=== PATIENT | female | born 1985 | race Caucasian/White ===

== ENCOUNTER 2016-11-14 12:00 | Emergency (ER) | payer MEDICAID, OTHER ==
[~2016-11-14] VITALS: Wt 87.0 kg
[2016-11-14] MEDS ORDERED: SOD CHLORIDE 0.9% 1,000 ML IV STA (13:45)
[2016-11-14] MEDS ORDERED: ONDANSETRON 4 MG INJ IV STA (13:45)
[2016-11-14] MEDS ORDERED: morphine 4 MG/ML VIAL IV STA (13:45)
[2016-11-14 14:06] LABS: URINE BLOOD (Dip) POC Trace-intact (NEGATIVE)
[2016-11-14 14:14] LABS: BASOPHILS % 0.3 % (0.0-2.0); EOSINOPHILS # 0.1 10^3/ul (0.0-0.5); EOSINOPHILS % 0.7 % (0.0-7.0); HEMATOCRIT 41.4 % (37.0-47.0); HEMOGLOBIN 13.7 g/dl (12.0-16.0); LYMPHOCYTES % 15.9 % (15.0-51.0); MEAN CORPUSCULAR HEMOGLOBIN 26.2 pg (29.0-33.0); MEAN CORPUSCULAR VOLUME 79.4 fl (82.0-101.0); MEAN PLATELET VOLUME 7.4 fl (7.4-10.4); MONOCYTE # 0.8 10^3/ul (0.3-0.9); MONOCYTES % 6.1 % (0.0-11.0); NEUTROPHIL # 9.8 10^3/ul (1.6-7.5); PLATELET COUNT 438 10^3/UL (140-440); RED BLOOD COUNT 5.22 10^6/ul (4.20-5.40); UNCORRECTED WBC 12.8 10^3/ul (4.8-10.8); WHITE BLOOD COUNT 12.8 10^3/ul (4.8-10.8)
[2016-11-14 14:24] LABS: CONDITION 1; LH ANALYZER COMMENTS 1
[2016-11-14 14:25] LABS: ALBUMIN 4.6 g/dl (3.3-4.9)
[2016-11-14 14:26] LABS: POTASSIUM 4.1 mmol/L (3.5-5.1)
[2016-11-14 14:28] LABS: BILIRUBIN,INDIRECT 0.9 mg/dl (0-1.1); BILIRUBIN,TOTAL 0.9 mg/dl (0.2-1.3); CREATININE 0.49 mg/dl (0.44-1.00)
[2016-11-14 14:29] LABS: ALBUMIN/GLOBULIN RATIO 1.17; CALCIUM 9.5 mg/dl (8.4-10.2); TOTAL PROTEIN 8.5 g/dl (6.1-8.1)
--- NOTE | 2016-11-14 14:47 | RADRPT ---
PROCEDURE: CT Abdomen and Pelvis without contrast. CLINICAL INDICATION: Abdominal pain TECHNIQUE: CT scan of the abdomen and pelvis without contrast was performed on a multidetector hig h-resolution CT scanner. The patient was scanned without intravenous contrast. Coronal and sagittal reformatted images were obtained from the axial source images. Images were reviewed on a high-resol [employer] PACS workstation. The total exam CTDI equals 17.11 mGy and the total exam DLP equals 1038.25 m Gy-cm. One or more of the following dose reduction techniques were used: Automated exposure control. Adjustment of the mA and/or kV according to patient size. Use of iterative reconstruction technique. COMPARISON: CT abdomen and pelvis 09/15/2013 FINDINGS: CT abdomen: The lung bases are remarkable for subsegmental atelectasis. The heart size is normal, without peric ardial thickening or effusion. The liver is normal in size and density without focal mass or intrah epatic biliary dilatation. The spleen is normal in size and homogeneous in density. There are postsurgical changes of gastric bypass surgery. The stomach is partially collapsed, but is grossly unremarkable. The pancreas as visualized is normal. The gallbladder is surgically absent. There is no evidence for biliary dilatation. The adrenal glands are symmetric and normal. The kid neys are symmetrically unremarkable as well. No renal calculus or obstructive uropathy or mass lesi on is seen. The aorta is of normal caliber. There is no retroperitoneal lymphadenopathy. The kristen hepatis agnieskza on is clear. The bowel and mesentery, as visualized, are equally unremarkable. There is diverticulo sis of the descending and sigmoid colon without evidence of acute diverticulitis. CT pelvis: The small bowel loops situated within the pelvis are unremarkable. There is a normal appendix. IUD is in place. There is approximately 3.5 cm hypodensity in the right adnexa and 4 cm hypodensity in the left adnexa. The pelvic sidewalls and inguinal regions are clear. The sigmoid colon and rectu m are remarkable for sigmoid diverticulosis. No mass, lymphadenopathy, or free fluid is seen. No a cute inflammation is seen. There is left pars interarticularis defect without spondylolisthesis. Th e surrounding osseous structures are remarkable for degenerative spondylosis of the spine. No osteo lytic or osteoblastic lesion is detected. IMPRESSION: 1. No mass, lymphadenopathy, or focal acute inflammatory process is identified. 2. Diverticulosis of the left colon without evidence of acute diverticulitis. 3. Normal appendix. 4. Status post gastric bypass surgery and cholecystectomy. No biliary ductal dilatation. 5. Approximately 3.5-4 cm hypodensities in bilateral adnexa likely representing ovarian cysts. Cons ider pelvic ultrasound for further evaluation. 6. IUD is in appropriate position. RPTAT: BB .Js Shepard MD, MD Date Time Electronically viewed and signed by .Js Shepard MD, on 11/14/2016 14:46 .O/
[2016-11-14] MEDS ORDERED: HYDROmorphONE 1 MG/ML SYG IV STA (14:52)
[2016-11-14] MEDS ORDERED: ONDA4TAB14 PO (15:01)
--- NOTE | 2016-11-14 15:09 | ERD ---
ER Documentation Chief Complaint Date/Time DATE: 11/14/16 TIME: 15:02 Chief Complaint pelvic pain for 4 days. no active vomiting. HPI Patient is a 31-year-old female with past medical history of migraines, cholecystectomy, gastric bypass surgery who presents to the emergency department with bilateral pelvic pain 4 days. Patient states that her pain started in the umbilical region and is now primarily located in the bilateral lower quadrants. Patient states that the pain does radiate to her mid back. She states the pain is an 8 out of 10, constant and sharp in nature. Patient states that she started having some nausea and vomiting today. Patient reports 4 episodes of nonbloody nonbilious vomiting. Patient also complaining of difficulty tolerating by mouth fluids and has a decreased appetite. She denies any chest pain, shortness of breath, arm weakness, tingling. Patient also complaining of a headache. Patient states that her headache started 3 days ago. It is primarily in the bilateral frontal regions and radiates to the back of her head. Patient denies sudden onset. She states that her headache has been getting gradually worse. Patient admits to some photophobia but denies any blurry vision. Patient denies any pain with urination, frequency, urgency, vaginal bleeding. Last menstrual period was on 10/30/16. No sick contacts. No recent travel. Of note, patient states that she had the flu approximately 2 weeks ago. Patient states she completed a course of Tamiflu at that time. ROS All systems reviewed and are negative except as per history of present illness. Medications Home Meds Active Scripts Diphenhydramine Hcl* (Diphenhydramine Hcl*) 25 Mg Capsule, 25 MG PO Q6 Y for ITCHING, #20 CAP Prov:KATHERINE GILL PA-C 11/14/16 Ibuprofen* (Motrin*) 600 Mg Tab, 600 MG PO Q6H Y for PAIN AND OR ELEVATED TEMP, #20 TAB Prov:KATHERINE GILL PA-C 11/14/16 Ondansetron (Ondansetron Odt) 4 Mg Tab.rapdis, 4 MG PO Q6H Y for NAUSEA AND/OR VOMITING, #12 TAB Prov:KATHERINE GILL PA-C 11/14/16 Allergies Allergies: Coded Allergies: ibuprofen (Verified Allergy, Unknown, 11/15/16) tramadol (Verified Allergy, Unknown, 11/15/16) PMhx/Soc Medical and Surgical Hx: pt denies Medical Hx, pt denies Surgical Hx History of Surgery: Yes (GASTRIC SURGERY, cholesectomy) Anesthesia Reaction: No Hx Neurological Disorder: No Hx Respiratory Disorders: No Hx Cardiac Disorders: No Hx Psychiatric Problems: Yes (DEPRESSION, ANXIETY) Hx Miscellaneous Medical Probl: No Hx Alcohol Use: Yes (ON OCCATION) Hx Substance Use: No Hx Tobacco Use: No Smoking Status: Never smoker FmHx Family History: No diabetes Physical Exam Vitals Vital Signs Date Time Temp Pulse Resp B/P Pulse Ox O2 Delivery O2 Flow Rate FiO2 11/14/16 16:45 98.1 62 16 136/80 100 Room Air 11/14/16 12:14 98.1 98 20 138/81 97 Physical Exam GENERAL: Well-developed, well-nourished female. Appears in pain. HEAD: Normocephalic, atraumatic. No deformities or ecchymosis. EYE: Pupils equal, round, and reactive to light. EOMs intact. No conjunctival erythema. No scleral icterus. No eye discharge. ENT: External ear without any masses or tenderness. Auditory canals clear bilaterally. TM visualized bilaterally, non-erythematous, non-bulging. Nasal mucosa pink with no discharge. Oropharynx is pink without any tonsillar erythema or exudates. No uvula deviation. No kissing tonsils. NECK: Supple. No lymphadenopathy or thyromegaly. No meningismus. No JVD. No bruits. Trachea midline. LUNGS: Clear to auscultation bilaterally. No rhonchi, wheezing, rales or coarse breath sounds. HEART: Regular rate and rhythm. No murmurs, rubs or gallops. ABDOMEN: Numerous old incisional scars noted. Tender to palpation of the umbilical, bilateral lower quadrants. Positive bowel sounds in all four quadrants. No rebound tenderness, no guarding. (-) McBurney's point tenderness. R-sided CVA tenderness. BACK: No midline tenderness. EXTREMITES: Equal pulses bilaterally. No peripheral clubbing, cyanosis or edema. No unilateral leg swelling. NEUROLOGIC: Alert and oriented to person, place and time. Moving all four extremities. 5/5 strength in all extremities. Normal speech. Steady gait. (-) Brudzinski sign- no flexion of the hips and knees noted with neck flexion. (-) Kernigs sign- patient able to extend knee to 180 degrees with hip flexion, no hamstring stiffness noted. SKIN: Normal color. Warm and dry. No rashes or lesions. Result Diagram: 11/14/16 1405 11/14/16 1405 Results 24 hrs Laboratory Tests Test 11/14/16 14:05 11/14/16 14:06 Alanine Aminotransferase (ALT/SGPT) 30IU/L Albumin 4.6g/dl Albumin/Globulin Ratio 1.17 Alkaline Phosphatase 95IU/L Anion Gap 19 Aspartate Amino Transf (AST/SGOT) 24IU/L Basophils # 0.010^3/ul Basophils % 0.3% Blood Morphology Comment Blood Urea Nitrogen 10mg/dl Calcium Level 9.5mg/dl Carbon Dioxide Level 28mmol/L Chloride Level 101mmol/L Creatinine 0.49mg/dl Direct Bilirubin 0.00mg/dl Eosinophils # 0.110^3/ul Eosinophils % 0.7% Globulin 3.90g/dl Glucose Level 79mg/dl Hematocrit 41.4% Hemoglobin 13.7g/dl Indirect Bilirubin 0.9mg/dl Lipase 107U/L Lymphocytes # 2.010^3/ul Lymphocytes % 15.9% Mean Corpuscular Hemoglobin 26.2pg Mean Corpuscular Hemoglobin Concent 33.0g/dl Mean Corpuscular Volume 79.4fl Mean Platelet Volume 7.4fl Monocytes # 0.810^3/ul Monocytes % 6.1% Neutrophils # 9.810^3/ul Neutrophils % 77.0% Nucleated Red Blood Cells # 0.010^3/ul Nucleated Red Blood Cells % 0.0/100WBC Platelet Count 37075^3/UL Potassium Level 4.1mmol/L Red Blood Count 5.2210^6/ul Red Cell Distribution Width 15.0% Sodium Level 144mmol/L Total Bilirubin 0.9mg/dl Total Protein 8.5g/dl White Blood Count 12.810^3/ul Bedside Urine Blood Trace-intact Bedside Urine Glucose (UA) 0.1% Bedside Urine Ketones (LAB) Negative Bedside Urine Leukocyte Esterase (L Negative Bedside Urine Nitrite (LAB) Negative Bedside Urine Protein (LAB) Negative Bedside Urine pH (LAB) 6.0 Current Medications Medications (Trade) Dose Ordered Sig/Hi Route PRN Reason Start Time Stop Time Status Last Admin Dose Admin Sodium Chloride (NS) 1,000 ml @ 1,000 mls/hr Q1H STAT IV 11/14/16 13:45 11/14/16 14:44 DC 11/14/16 14:08 Morphine Sulfate (morphine) 4 mg ONCE STAT IV 11/14/16 13:45 11/14/16 14:53 DC 11/14/16 14:08 Ondansetron HCl (Zofran Inj) 4 mg ONCE STAT IV 11/14/16 13:45 11/14/16 13:47 DC 11/14/16 14:07 Hydromorphone HCl (Dilaudid) 1 mg ONCE STAT IV 11/14/16 14:52 11/14/16 14:53 DC 11/14/16 15:01 Procedures/MDM ED COURSE: The patient was stable throughout ED course. I kept the patient and/or family informed of laboratory and diagnostic imaging results throughout the ED course. DIAGNOSTIC IMAGING: Read by radiologist. DIAGNOSTIC IMAGING REPORT Patient: KENA ZELAYA : 1985 Age: 31 Sex: F MR #: [id number] DOS: 11/14/16 1345 Ordering MD: KATHERINE GILL PA-C Location: [facility] Room/Bed: PROCEDURE: CT Abdomen and Pelvis without contrast. CLINICAL INDICATION: Abdominal pain TECHNIQUE: CT scan of the abdomen and pelvis without contrast was performed on a multidetector high-resolution CT scanner. The patient was scanned without intravenous contrast. Coronal and sagittal reformatted images were obtained from the axial source images. Images were reviewed on a high-resolution PACS workstation. The total exam CTDI equals 17.11 mGy and the total exam DLP equals 1038.25 mGy-cm. One or more of the following dose reduction techniques were used: Automated exposure control. Adjustment of the mA and/or kV according to patient size. Use of iterative reconstruction technique. COMPARISON: CT abdomen and pelvis 09/15/2013 FINDINGS: CT abdomen: The lung bases are remarkable for subsegmental atelectasis. The heart size is normal, without pericardial thickening or effusion. The liver is normal in size and density without focal mass or intrahepatic biliary dilatation. The spleen is normal in size and homogeneous in density. There are postsurgical changes of gastric bypass surgery. The stomach is partially collapsed, but is grossly unremarkable. The pancreas as visualized is normal. The gallbladder is surgically absent. There is no evidence for biliary dilatation. The adrenal glands are symmetric and normal. The kidneys are symmetrically unremarkable as well. No renal calculus or obstructive uropathy or mass lesion is seen. The aorta is of normal caliber. There is no retroperitoneal lymphadenopathy. The kristen hepatis region is clear. The bowel and mesentery, as visualized, are equally unremarkable. There is diverticulosis of the descending and sigmoid colon without evidence of acute diverticulitis. CT pelvis: The small bowel loops situated within the pelvis are unremarkable. There is a normal appendix. IUD is in place. There is approximately 3.5 cm hypodensity in the right adnexa and 4 cm hypodensity in the left adnexa. The pelvic sidewalls and inguinal regions are clear. The sigmoid colon and rectum are remarkable for sigmoid diverticulosis. No mass, lymphadenopathy, or free fluid is seen. No acute inflammation is seen. There is left pars interarticularis defect without spondylolisthesis. The surrounding osseous structures are remarkable for degenerative spondylosis of the spine. No osteolytic or osteoblastic lesion is detected. IMPRESSION: 1. No mass, lymphadenopathy, or focal acute inflammatory process is identified. 2. Diverticulosis of the left colon without evidence of acute diverticulitis. 3. Normal appendix. 4. Status post gastric bypass surgery and cholecystectomy. No biliary ductal dilatation. 5. Approximately 3.5-4 cm hypodensities in bilateral adnexa likely representing ovarian cysts. Consider pelvic ultrasound for further evaluation. 6. IUD is in appropriate position. RPTAT: BB .Js Shepard MD, Date Time Electronically viewed and signed by .Js Shepard MD, on 11/14/2016 14:46 .O/ CC: KATHERINE GILL PA-C DIAGNOSTIC IMAGING REPORT Patient: KENA ZELAYA : 1985 Age: 31 Sex: F MR #: [id number] DOS: 11/14/16 0000 Ordering MD: KATHERINE GILL PA-C Location: [facility] Room/Bed: PROCEDURE: US Pelvis. CLINICAL INDICATION: Pelvic pain TECHNIQUE: Multiple sonographic images of the pelvis were obtained utilizing a transabdominal and endovaginal technique. The images were reviewed on a PACS workstation. COMPARISON: CT November 14, 2016 FINDINGS: The uterus is visualized and measures 10.2 x 3.8 x 4.6 cm. The endometrial echo complex is not well visualized. Echogenic IUD is identified in the endometrial canal. Small amount of free fluid is identified in the cervical canal. No uterine masses are identified. The right ovary measures 4.1 x 3.2 x 2.8 cm . The left ovary measures 4.7 x 3.4 x 3.6 cm. 3.1 cm simple cyst is identified on the left ovary. 2.9 cm simple cyst is seen on the right ovary. The ovaries demonstrate normal vascularity. No adnexal masses or pelvic free fluid are noted. IMPRESSION: Echogenic IUD in the endometrial canal. Endometrial echo complex not well visualized. If characterization of this structure is needed repeat exam or MRI is recommended. Trace free fluid in the cervical canal. This may be related to menses. 3.1 cm simple cyst on the left ovary and 2.9 cm simple cyst on the right ovary. These likely reflect physiologic cysts are prominent follicles. If further characterization of the organs of the pelvis is needed MRI should be considered. RPTAT: AA .Eusebio Khoury MD, MD Date Time Electronically viewed and signed by .Eusebio Khoury MD, MD on 11/14/2016 15:55 .P/ CC: KATHERINE GILL PA-C MEDICATIONS GIVEN: Dilaudid, Zofran, IV fluids Patient tolerated medication well with no adverse reactions. Patient reported improvement in pain and nausea/vomiting. Additional episodes of vomiting were noted throughout ED course. MEDICAL DECISION MAKING: This is a 31-year-old female who presents with bilateral pelvic pain and a headache. Vital signs were reviewed. Patient is afebrile. Patient was not hypoxic. Abdominal exam revealed tenderness to palpation in the umbilical and bilateral lower quadrants. CBC showed no evidence of severe anemia. Slight white count of 12.8 was noted. CMP showed no evidence of electrolyte abnormalities, severe acidosis, alkalosis, renal failure, or liver disease. Lipase showed no evidence of acute pancreatitis. UA showed no evidence of acute infection or hematuria. Low suspicion for UTI, pyelonephritis or nephrolithiasis. Urine test was negative. CT abdomen and pelvis showed No mass, lymphadenopathy, or focal acute inflammatory process is identified. Diverticulosis of the left colon without evidence of acute diverticulitis. Normal appendix. Status post gastric bypass surgery and cholecystectomy. No biliary ductal dilatation. Approximately 3.5-4 cm hypodensities in bilateral adnexa likely representing ovarian cysts. Consider pelvic ultrasound for further evaluation. Given that the patient continued to report lower pelvic pain bilaterally, a pelvic ultrasound was obtained. Pelvic ultrasound showed 3.1 cm simple cyst on the left ovary and 2.9 cm simple cyst on the right ovary. These likely reflect physiologic cysts are prominent follicles. The ovaries demonstrate normal vascularity. At this time, patient's presentation is most consistent with diverticulosis and ovarian cysts. I have a much lower clinical concern for acute coronary syndrome, small bowel obstruction, DKA, bowel perforation, cholecystitis, choledocholithiasis, ascending cholangitis, pancreatitis, gastritis, GERD, diverticulitis, UTI, pyelonephritis, appendicitis, constipation , , ectopic , PID, ovarian torsion or tubo-ovarian abscess. Patient's headache is most likely due to migraines. Low suspicion for intracranial hemorrhage given that patient denied sudden onset or worst headache of life. Low suspicion for intracranial mass, CO poisoning, intracranial hypertension. PRESCRIPTIONS: Ibuprofen, Zofran, Benadryl. Patient requested Benadryl for her headaches. DISCHARGE: At this time, patient is stable for discharge and outpatient management. I have instructed the patient to follow-up with his/her primary care physician in 1-2 days. She was advised that she may be to follow-up with the GI specialist for further workup of her abdominal pain if symptoms do not improve including colonoscopy. I have instructed the patient to promptly return to the ER at any time for any new or worsening symptoms including increased pain, nausea, vomiting, diarrhea, fever, weakness or LOC. The patient and/or family expressed understanding of and agreement with this plan. All questions were answered. Home care instructions were provided. Departure Diagnosis: Primary Impression: Diverticulosis Diverticulosis site: unspecified location Diverticulosis bleeding: diverticulosis without bleeding Qualified Code: K57.90 - Diverticulosis of intestine without bleeding, unspecified intestinal tract location Additional Impressions: Ovarian cyst Laterality: bilateral Qualified Code: N83.201 - Cysts of both ovaries Migraine Migraine type: unspecified Status migrainosus presence: without status migrainosus Intractability: not intractable Qualified Code: G43.909 - Migraine without status migrainosus, not intractable, unspecified migraine type Condition: Stable Patient Instructions: Understanding Diverticulosis and Diverticulitis Additional Instructions: Call your primary care doctor TOMORROW for an appointment during the next 1-2 days.See the doctor sooner or return here if your condition worsens before your appointment time. Patient may need to follow up with GI specialist if pain does not improve for further workup including possible colonoscopy. KATHERINE GILL PA-C Nov 14, 2016 15:09
--- NOTE | 2016-11-14 15:55 | RADRPT ---
PROCEDURE: US Pelvis. CLINICAL INDICATION: Pelvic pain TECHNIQUE: Multiple sonographic images of the pelvis were obtained utilizing a transabdominal and endovaginal technique. The images were reviewed on a PACS workstation. COMPARISON: CT November 14, 2016 FINDINGS: The uterus is visualized and measures 10.2 x 3.8 x 4.6 cm. The endometrial echo complex is not well visualized. Echogenic IUD is identified in the endometrial canal. Small amount of free fluid is id entified in the cervical canal. No uterine masses are identified. The right ovary measures 4.1 x 3.2 x 2.8 cm . The left ovary measures 4.7 x 3.4 x 3.6 cm. 3.1 cm s imple cyst is identified on the left ovary. 2.9 cm simple cyst is seen on the right ovary. The ova sohail demonstrate normal vascularity. No adnexal masses or pelvic free fluid are noted. IMPRESSION: Echogenic IUD in the endometrial canal. Endometrial echo complex not well visualized. If characterization of this structure is needed repeat exam or MRI is recommended. Trace free fluid in the cervical canal. This may be related to menses. 3.1 cm simple cyst on the left ovary and 2.9 cm simple cyst on the right ovary. These likely reflec t physiologic cysts are prominent follicles. If further characterization of the organs of the pelvis is needed MRI should be considered. RPTAT: AA .Eusebio Khoury MD, MD Date Time Electronically viewed and signed by .Eusebio Khoury MD, MD on 11/14/2016 15:55 .P/
[2016-11-14] MEDS ORDERED: IBUP-1542 PO (16:16)
[2016-11-14] MEDS ORDERED: DIPH25CA6 PO (16:17)
[2016-11-14 16:45] VITALS: BP 136/80; PULSE 62; RESP 16; TEMP 98.1
== END 2016-11-14 16:45 | disposition home or self-care (01) ==
LOC: FTE 12:00
DX: K57.90 Diverticulosis of intestine, part unspecified, without perforation or abscess without bleeding (principal); N83.201 Unspecified ovarian cyst, right side; N83.202 Unspecified ovarian cyst, left side; G43.909 Migraine, unspecified, not intractable, without status migrainosus; R11.2 Nausea with vomiting, unspecified
CPT/HCPCS: 36415; 74176; 76830; 76856; 80053; 81003; 83690; 85025; 96374; 96375; J1170; J2270; J2405; J7030; Z7502

== ENCOUNTER 2016-11-14 22:24 | Emergency (ER) | payer MEDICAID, OTHER ==
[~2016-11-14] VITALS: Ht 160 cm; Wt 89.5 kg
[~2016-11-14 22:24] MED LIST: DIPH25CA6 PO; IBUP-1542 PO; ONDA4TAB14 PO
[2016-11-14 22:28] VITALS: Ht 160 cm; Wt 89.5 kg
[2016-11-15] MEDS ORDERED: ONDANSETRON (ODT) 4 MG TAB ODT STA (00:48)
[2016-11-15] MEDS ORDERED: traMADol 50 MG TAB PO ONE (01:00)
[2016-11-15] MEDS ORDERED: DIPHENHYDRAMINE 2.5 MG/ML 5ML CUP PO ONE (01:30)
--- NOTE | 2016-11-15 02:55 | ERD ---
ER Documentation Chief Complaint Date/Time DATE: 11/15/16 TIME: 02:49 Chief Complaint vomiting, was seen this morning same c/o was not given by pharmacy zofran HPI The patient is a 31-year-old female who comes to the emergency department for nausea and vomiting since this morning. She was seen here and evaluated this morning, and was discharged home with prescription for Zofran. She states that she was unable to get her prescription filled, and her nausea and vomiting returned. She is here requesting medication for nausea and vomiting. She denies any new symptoms, worsening symptoms, or concerns. She continues to report some bilateral lower abdominal pain, which is somewhat better than it was this morning. She has a history of gastric bypass surgery and cholecystectomy. ROS All systems reviewed and are negative except as per history of present illness. Medications Home Meds Active Scripts Diphenhydramine Hcl* (Diphenhydramine Hcl*) 25 Mg Capsule, 25 MG PO Q6 Y for ITCHING, #20 CAP Prov:KATHERINE GILL PA-C 11/14/16 Ibuprofen* (Motrin*) 600 Mg Tab, 600 MG PO Q6H Y for PAIN AND OR ELEVATED TEMP, #20 TAB Prov:KATHERINE GILL PA-C 11/14/16 Ondansetron (Ondansetron Odt) 4 Mg Tab.rapdis, 4 MG PO Q6H Y for NAUSEA AND/OR VOMITING, #12 TAB Prov:KATHERINE GILL PA-C 11/14/16 Allergies Allergies: Coded Allergies: ibuprofen (Verified Allergy, Unknown, 11/15/16) tramadol (Verified Allergy, Unknown, 11/15/16) PMhx/Soc History of Surgery: Yes (GASTRIC SURGERY, cholecystectomy) Anesthesia Reaction: No Hx Neurological Disorder: No Hx Respiratory Disorders: No Hx Cardiac Disorders: No Hx Psychiatric Problems: Yes (DEPRESSION, ANXIETY) Hx Miscellaneous Medical Probl: No (ovarian cyst & diverticulosis- both diagnosed 11/14/16) Hx Alcohol Use: No Hx Substance Use: No Hx Tobacco Use: No Smoking Status: Never smoker Physical Exam Vitals Vital Signs Date Time Temp Pulse Resp B/P Pulse Ox O2 Delivery O2 Flow Rate FiO2 11/14/16 22:28 98.3 94 20 126/69 98 Physical Exam INITIAL VITAL SIGNS: Reviewed by me GENERAL: Alert. Well developed and well nourished. No acute distress. HEAD: Head is normocephalic. Atraumatic. EYES: EOMI. No scleral icterus. No conjunctival injection. ENT: External ears, nose, and mouth normal. Nasal passages patent. Moist mucous membranes. NECK: Supple. Full range of motion. Trachea midline. RESPIRATORY: No tachypnea. Clear to auscultation bilaterally. No wheezing, rales , or rhonchi. CV: Regular rate and rhythm. No murmurs, rubs, or gallops ABDOMEN: Soft, non-distended, non-tender. No guarding. No rebound. No masses. Bowel sounds normal in all quadrants. BACK: No CVA tenderness. Full ROM. EXTREMITIES: No obvious deformity. No clubbing or cyanosis. No edema. SKIN: Warm and dry. No diaphoresis. No obvious rashes or lesions. NEUROLOGIC: Alert and oriented x 3. Appropriate. Face is symmetric. Speech is normal. Moves all extremities equally. Results 24 hrs Current Medications Medications (Trade) Dose Ordered Sig/Hi Route PRN Reason Start Time Stop Time Status Last Admin Dose Admin Ondansetron HCl (Zofran Odt) 4 mg ONCE STAT ODT 11/15/16 00:48 11/15/16 00:50 DC 11/15/16 01:00 Tramadol HCl (Ultram) 50 mg ONCE ONCE PO 11/15/16 01:00 11/15/16 01:01 DC Diphenhydramine HCl (Benadryl Liquid Cup) 25 mg ONCE ONCE PO 11/15/16 01:30 11/15/16 01:31 DC 11/15/16 01:40 Procedures/MDM Nursing Notes Reviewed Previous Medical Records requested via [facility]. EMERGENCY DEPARTMENT COURSE / MEDICAL DECISION MAKING: The patient comes to the ED secondary to nausea and vomiting since this morning. Differential diagnosis upon initial evaluation includes but is not limited to: Viral illness, appendicitis, diverticulitis, sepsis, and others. The patient was treated with Zofran 4 mg p.o. the patient requested Benadryl in order to help her sleep. She stated that she would not be driving home. Benadryl 25 mg p.o. was given. The patient's workup from earlier today was negative as below: Pelvic ultrasound as per radiology report: IMPRESSION: Echogenic IUD in the endometrial canal. Endometrial echo complex not well visualized. If characterization of this structure is needed repeat exam or MRI is recommended. Trace free fluid in the cervical canal. This may be related to menses. 3.1 cm simple cyst on the left ovary and 2.9 cm simple cyst on the right ovary. These likely reflect physiologic cysts are prominent follicles. CT scan per radiology report: IMPRESSION: 1. No mass, lymphadenopathy, or focal acute inflammatory process is identified. 2. Diverticulosis of the left colon without evidence of acute diverticulitis. 3. Normal appendix. 4. Status post gastric bypass surgery and cholecystectomy. No biliary ductal dilatation. 5. Approximately 3.5-4 cm hypodensities in bilateral adnexa likely representing ovarian cysts. Consider pelvic ultrasound for further evaluation. 6. IUD is in appropriate position. Labs: CBC: no e/o of systemic infection or severe anemia CMP: no e/o severe acidosis, alkalosis, renal failure, diabetic ketoacidosis, liver disease Urine: no e/o acute infection or hematuria Otherwise within normal limits, unremarkable, or as documented above. Final impression: Nausea and vomiting Based on patient's history of present illness and physical examination the decision was made to discharge. The patient was re-evaluated after ED treatment and stabilizing measures, and symptoms have improved. There is no evidence of life threatening injuries or illnesses at this time. I have low suspicion at this time for acute surgical abdomen, given her negative workup earlier today. The patient requested to be discharged so that she could go home and rest that she was feeling much better. On re-examination, patient resting in no distress, stable vital signs, reports feeling better and safe for discharge with outpatient follow up with PMD in 1-2 days. Patient given return precautions. She verbalized understanding and agreed to return precautions. It was reported to me by the registered nurse that the patient eloped prior to receiving her discharge instructions because "her ride was here ". Departure Diagnosis: Primary Impression: Nausea and vomiting Vomiting type: unspecified Vomiting Intractability: non-intractable Qualified Code: R11.2 - Non-intractable vomiting with nausea, unspecified vomiting type Condition: Stable Patient Instructions: Nausea and Vomiting-Adult Referrals: your doctor Additional Instructions: Call your primary care doctor TOMORROW for an appointment during the next 1-2 days.See the doctor sooner or return here if your condition worsens before your appointment time. AVERY LIN, DRUM HANDLER Nov 15, 2016 02:55
== END 2016-11-15 07:04 | disposition home or self-care (01) ==
LOC: FTE 22:24 → E/R 11-15 07:04
DX: R11.2 Nausea with vomiting, unspecified (principal)
CPT/HCPCS: Z7502; Z7610; 99283

== ENCOUNTER 2016-11-16 12:48 | Inpatient (IN) | payer OTHER ==
[~2016-11-16] VITALS: Ht 134.6 cm; Wt 84.9 kg
[2016-11-16] MEDS ORDERED: SOD CHLORIDE 0.9% 1,000 ML IV STA (12:55)
[2016-11-16] MEDS ORDERED: HYDROmorphONE 1 MG/ML SYG IV STA (12:55)
[2016-11-16] MEDS ORDERED: ONDANSETRON 4 MG INJ IV STA ×2 (12:55→15:40)
[2016-11-16] MEDS ORDERED: LORAZEPAM 2 MG INJ IV ONE (13:00)
--- NOTE | 2016-11-16 13:00 | ERD ---
ER Documentation Chief Complaint Date/Time DATE: 11/16/16 TIME: 12:56 Chief Complaint ABD PAIN X 5 DAYS HPI 31-year-old female history of gastric bypass who presents emergency room for diffuse abdominal pain. The patient is tearful with dry heaving and anxiety upon arrival. The patient has 3 visits the last 2 days here in the emergency room for similar symptoms. Her last CAT scan was on the sixth that showed diverticulosis but no evidence of bowel obstruction. The patient describes "many years "of this abdominal pain that is mostly unchanged. She is asking for pain medication. She states that she has not seen a GI doctor. She denies any hematemesis or melena, no diarrhea. ROS All systems reviewed and are negative except as per history of present illness. Medications Home Meds Active Scripts Diphenhydramine Hcl* (Diphenhydramine Hcl*) 25 Mg Capsule, 25 MG PO Q6 Y for ITCHING, #20 CAP Prov:KATHERINE GILL PA-C 11/14/16 Ibuprofen* (Motrin*) 600 Mg Tab, 600 MG PO Q6H Y for PAIN AND OR ELEVATED TEMP, #20 TAB Prov:KATHERINE GILL PA-C 11/14/16 Ondansetron (Ondansetron Odt) 4 Mg Tab.rapdis, 4 MG PO Q6H Y for NAUSEA AND/OR VOMITING, #12 TAB Prov:KTAHERINE GILL PA-C 11/14/16 Allergies Allergies: Coded Allergies: ibuprofen (Verified Allergy, Unknown, 11/16/16) tramadol (Verified Allergy, Unknown, 11/16/16) PMhx/Soc History of Surgery: Yes (GASTRIC SURGERY, cholecystectomy) Anesthesia Reaction: No Hx Neurological Disorder: No Hx Respiratory Disorders: No Hx Cardiac Disorders: No Hx Psychiatric Problems: Yes (DEPRESSION, ANXIETY) Hx Miscellaneous Medical Probl: No (ovarian cyst & diverticulosis- both diagnosed 11/14/16) Hx Alcohol Use: No Hx Substance Use: No Hx Tobacco Use: No Smoking Status: Never smoker FmHx Family History: No diabetes Physical Exam Vitals Vital Signs Date Time Temp Pulse Resp B/P Pulse Ox O2 Delivery O2 Flow Rate FiO2 11/16/16 12:50 97.7 78 20 140/90 100 Physical Exam General: Disheveled, older than stated age, dry heaving Head: Normocephalic, atraumatic. Eyes: Pupils equally reactive, EOM intact ENT: Moist mucous membranes Neck: Supple, no lymphadenopathy Respiratory: Lungs clear bilaterally, no distress Cardiovascular: RRR, no murmurs, rubs, or gallops Abdominal: Soft, mild diffuse tenderness without rebound or guarding, no peritonitis : Deferred MSK: No edema, no unilateral swelling, 5/5 strength Neurologic: Alert and oriented, moving all extremities, normal speech, no focal weakness, no cerebellar signs Skin: No rash Psych: Normal mood Result Diagram: 11/16/16 1315 11/16/16 1315 Results 24 hrs Laboratory Tests Test 11/16/16 13:15 Alanine Aminotransferase (ALT/SGPT) 25IU/L Albumin 4.5g/dl Albumin/Globulin Ratio 1.25 Alkaline Phosphatase 106IU/L Anion Gap 22 Aspartate Amino Transf (AST/SGOT) 25IU/L Basophils # 0.010^3/ul Basophils % 0.0% Blood Morphology Comment Blood Urea Nitrogen 11mg/dl Calcium Level 9.3mg/dl Carbon Dioxide Level 25mmol/L Chloride Level 100mmol/L Creatinine 0.53mg/dl Direct Bilirubin 0.00mg/dl Eosinophils # 0.010^3/ul Eosinophils % 0.0% Globulin 3.60g/dl Glucose Level 129mg/dl Hematocrit 41.6% Hemoglobin 13.6g/dl Indirect Bilirubin 0.7mg/dl Lipase 89U/L Lymphocytes # 0.910^3/ul Lymphocytes % 6.0% Mean Corpuscular Hemoglobin 26.2pg Mean Corpuscular Hemoglobin Concent 32.8g/dl Mean Corpuscular Volume 79.7fl Mean Platelet Volume 7.8fl Monocytes # 0.110^3/ul Monocytes % 0.4% Neutrophils # 14.510^3/ul Neutrophils % 93.6% Nucleated Red Blood Cells # 0.010^3/ul Nucleated Red Blood Cells % 0.0/100WBC Platelet Count 02465^3/UL Potassium Level 4.1mmol/L Red Blood Count 5.2210^6/ul Red Cell Distribution Width 15.4% Sodium Level 143mmol/L Total Bilirubin 0.7mg/dl Total Protein 8.1g/dl White Blood Count 15.510^3/ul Current Medications Medications (Trade) Dose Ordered Sig/Hi Route PRN Reason Start Time Stop Time Status Last Admin Dose Admin Sodium Chloride (NS) 1,000 ml @ 1,000 mls/hr Q1H STAT IV 11/16/16 12:55 11/16/16 13:54 DC 11/16/16 13:07 Hydromorphone HCl (Dilaudid) 1 mg ONCE STAT IV 11/16/16 12:55 11/16/16 12:56 DC 11/16/16 13:07 Ondansetron HCl (Zofran Inj) 4 mg ONCE STAT IV 11/16/16 12:55 11/16/16 12:56 DC 11/16/16 13:07 Lorazepam (Ativan) 1 mg ONCE ONCE IV 11/16/16 13:00 11/16/16 13:01 DC 11/16/16 13:07 Procedures/MDM EKG, MONITORS, & DIAGNOSTIC IMAGING: X-ray acute abdominal series: IMPRESSION: 1. No evidence of obstruction or free air. 2. Prior surgery. 3. IUD. 4. Scoliosis. RPTAT: QQ LAB INTERPRETATION: Leukocytosis secondary to stress response. MEDICAL DECISION MAKING: This is the patient's third visit for abdominal pain the last 2 days. The patient has chronic abdominal pain that I believe is unchanged. However her frequency of visits is somewhat concerning. The patient also has a highly concerning [facility] database report showing multiple prescriptions from multiple different providers over the last several months. Most recently in October the patient has filled 6 different prescriptions for [place] ranging anywhere from 4-40 tablets. A combination of electronic medical record review, [facility] database review and patient behavior in the emergency room are concerning for drug-seeking and/or narcotic dependence behavior. In my opinion further use of IV or IM narcotics in this patient is not warranted unless clinical scenario changes. In addition , we should use caution prescribing chronic narcotic and/or benzodiazepine medications from the emergency room. A single provider should be dispensing this type of medication. The patient was informed. The patient is at risk for bowel obstruction given her history of gastric bypass however the patient had a recent CT. I would like to avoid unnecessary CT imaging and is otherwise healthy 31-year-old female. Anxiety medication would certainly be indicated. If the patient has persistence of symptoms given her frequency of visits the ER inpatient hospitalization may be reasonable. ER COURSE: The patient has persistent pain. Leukocytosis secondary to stress response. No indication for CT imaging. The patient will benefit from inpatient hospitalization and serial exams. I kept the patient and/or family informed of laboratory and diagnostic imaging results throughout the emergency room course. DISPOSITION PLAN: Medical surgical bed CONSULTATION: Accepting care team and consultations: I discussed the current laboratory data, diagnostic imaging and emergency care provided. Admitting team: Dr. Gerber Admitting team indication: Insurance directed Departure Diagnosis: Primary Impression: Abdominal pain Abdominal location: generalized Qualified Code: R10.84 - Generalized abdominal pain Additional Impressions: Anxiety reaction Narcotic dependence Condition: Stable LUCILA CORDOBA MD Nov 16, 2016 13:00
[2016-11-16 13:38] LABS: HEMATOCRIT 41.6 % (37.0-47.0); HEMOGLOBIN 13.6 g/dl (12.0-16.0); LYMPHOCYTES # 0.9 10^3/ul (0.8-2.9); MEAN CORPUSCULAR HEMOGLOBIN 26.2 pg (29.0-33.0); MEAN CORPUSCULAR HGB CONC 32.8 g/dl (32.0-37.0); MEAN CORPUSCULAR VOLUME 79.7 fl (82.0-101.0); MEAN PLATELET VOLUME 7.8 fl (7.4-10.4); MONOCYTE # 0.1 10^3/ul (0.3-0.9); MONOCYTES % 0.4 % (0.0-11.0); NEUTROPHIL # 14.5 10^3/ul (1.6-7.5); NEUTROPHILS % 93.6 % (39.0-77.0); PLATELET COUNT 428 10^3/UL (140-440); RED BLOOD COUNT 5.22 10^6/ul (4.20-5.40); RED CELL DISTRIBUTION WIDTH 15.4 % (11.5-14.5); UNCORRECTED WBC 15.5 10^3/ul (4.8-10.8); WHITE BLOOD COUNT 15.5 10^3/ul (4.8-10.8)
[2016-11-16 13:56] LABS: CONDITION 1; LH ANALYZER COMMENTS 1
--- NOTE | 2016-11-16 13:57 | RADRPT ---
PROCEDURE: XR Abdomen. CLINICAL INDICATION: Abdomen pain. TECHNIQUE: Two views. AP supine and AP erect. COMPARISON: None. FINDINGS: There is no free air. The bowel gas pattern is normal with no evidence of obstruction. Multiple surgical clips are present in the upper abdomen. There is a Mirena IUD in the pelvis. There are no abnormal calcifications overlying the urinary tracts. There is thoracic scoliosis convex right and lumbar scoliosis convex left. IMPRESSION: 1. No evidence of obstruction or free air. 2. Prior surgery. 3. IUD. 4. Scoliosis. RPTAT: QQ .Anant Cruz MD, MD Date Time Electronically viewed and signed by .Anant Cruz MD, on 11/16/2016 13:57 .R/
[2016-11-16 14:07] LABS: ALBUMIN 4.5 g/dl (3.3-4.9)
[2016-11-16 14:08] LABS: POTASSIUM 4.1 mmol/L (3.5-5.1)
[2016-11-16 14:10] LABS: ALBUMIN/GLOBULIN RATIO 1.25; BILIRUBIN,INDIRECT 0.7 mg/dl (0-1.1); BILIRUBIN,TOTAL 0.7 mg/dl (0.2-1.3); CALCIUM 9.3 mg/dl (8.4-10.2); CREATININE 0.53 mg/dl (0.44-1.00); TOTAL PROTEIN 8.1 g/dl (6.1-8.1)
[2016-11-16] MEDS ORDERED: ONDANSETRON 4 MG INJ IV PRN ×3 (15:30→23:00)
[2016-11-16] MEDS ORDERED: ACETAMINOPHEN 325 MG TAB PO PRN (15:30)
[2016-11-16 15:45] VITALS: TEMP 98.4
[2016-11-16] MEDS ORDERED: BISACODYL (EC) 5 MG TAB PO PRN (16:00)
[2016-11-16] MEDS ORDERED: NACL 0.9% 3 ML SYG IV SCH (16:00)
[2016-11-16] MEDS ORDERED: ACETAMINOPHEN 650 MG SUPP PR PRN (16:00)
[2016-11-16 16:15] VITALS: BP 149/96; PULSE 54; RESP 20
[2016-11-16] MEDS ORDERED: morphine 10 MG INJ IM ONE (16:30)
--- NOTE | 2016-11-16 16:47 | HP ---
Date/Time of Note Date/Time of Note DATE: 11/16/16 TIME: 16:41 Assessment/Plan VTE Prophylaxis VTE Prophylaxis Intervention: SCD's Assessment/Plan Chief Complaint/Hosp Course Impression and plan 1. Diffuse abdominal pain. Patient does report that her abdominal pain did start in her ability area and spread up to her upper abdomen 10 out of 10. She does report that the pain is intermittent. She has never seen a production control scheduler. We will get one to follow her. We'll start on PPI medication provide with analgesics as needed. We'll get bumper and painter. 2. Suspect opioid abuse. We'll get pain management physician to follow. Of note this history was obtained from the patient's who did report that the patient did have somewhat of an opiate tolerance after her gastric bypass surgery. We'll follow up on home medications 3. History of major depression. We'll continue patient's antidepressants. No reports of suicidal ideation at this time. 4. Leukocytosis. Patient remains afebrile. Etiology unknown. We'll follow up on garcia cultures. 5. Diverticulosis without evidence of diverticulitis per CT scan of the abdomen on 11/14/2016. Patient was impaired be started on Cipro and Flagyl. We'll continue for now. We'll follow-up on garcia cultures. 6. Anxiety. We'll provide with anxiolytics as needed. Admission process time is 40 minutes Discussed plan of care with Dr. Purcell Problems: HPI/IGLESIA Admit Date/Time Admit Date/Time Nov 16, 2016 at 15:11 Hx of Present Illness This is a 31-year-old female with past medical history of gastric bypass and cholecystectomy as well as anxiety and major depression, with also reports of chronic abdominal pain who came to [facility] after reports of having abdominal pain for several days. She did report that the pain initially started in her lower abdominal area and then started to radiate up to her upper abdomen. She did report having some nausea and vomiting associated with this issue not bloody by greenish in appearance. Patient was initially had [facility] on 11/14/2016 for this issue for which she did have CT scan of the abdomen that did show diverticulosis but no evidence of diverticulitis. She also did have pelvic ultrasound done that did show echogenic IUD in the endometrial canal. It also did show trace free fluid in the cervical canal but likely related to menses. Is also showed a 3.17 m simple cyst on left ovary and 2.9 cm simple cyst on the right ovary. Patient was also seen with a white count of 15.5 but remained afebrile. She did report having subjective chills while she was at home. Her most recent abdominal x-ray done on 11/16/2016 did show no evidence of obstruction or free air. Patient denies ever having had colonoscopy or EGD. She has not seen a production control scheduler. Of note, we also did discuss with the patient's who did report that sometime ago after patient's gastric bypass procedure she did developed somewhat of an opiate tolerance. Patient was seen in the bed shaking her hands in the air requesting for Dilaudid pain medication. We will monitor for the aforementioned issues ROS 12 point review of systems obtained and entirely negative except that mentioned in the history of present illness PMH/Family/Social Past Medical History This is a 31-year-old female with past medical history of gastric bypass and cholecystectomy as well as anxiety and major depression Past Surgical History 1. Cholecystectomy 2. Gastric bypass Family History Significant Family History: no pertinent family hx Social History Alcohol Use: none Smoking Status: Unknown if ever smoked Drug Use: none Exam/Review of Systems Vital Signs Vitals Vital Signs Date Time Temp Pulse Resp B/P Pulse Ox O2 Delivery O2 Flow Rate FiO2 11/16/16 15:45 98.4 70 20 131/84 97 Room Air Exam Exam General: Noted in distress. Reports having abdominal pain Eyes: pupils equal round, Anicteric sclera Neck: Supple nontender, no JVD Cardiac: S1, S2 auscultated, regular rhythm and rate Pulmonary: No coarse rhonchi or breathing auscultated GI: Tender upon palpation Extremities: No edema bilateral lower extremities Skin: Clean dry and intact Neurologic: [Alert and oriented 3, anxious Labs Result Diagram: 11/16/16 1315 11/16/16 1315 Medications Medications Current Medications Sodium Chloride (NS) 1,000 ml @ 75 mls/hr [id number] IV ; Start 11/16/16 at 15:39 Ondansetron HCl (Zofran Inj) 4 mg Q6H PRN IV NAUSEA AND/OR VOMITING; Start 11/16 at 16:00 Acetaminophen (Tylenol Supp) 650 mg Q6H PRN TN PAIN LEVEL 1-3 OR FEVER; Start 11/16/16 at 16:00 Morphine Sulfate (morphine) 2 mg Q4H PRN IV SEVERE PAIN LEVEL 7-10; Start at 16:00 Bisacodyl (Dulcolax) 5 mg DAILY PRN PO CONSTIPATION; Start 11/16/16 at 16:00 Famotidine 20 mg 20 mg Q12 IV ; Start 11/16/16 at 21:00 Ciprofloxacin/ Dextrose 200 ml @ 200 mls/hr Q12 IVPB ; Start 11/16/16 at 21:00 Metronidazole (Flagyl 500 Mg (Pmx)) 100 ml @ 100 mls/hr Q8 IVPB ; Start at 22:00 Morphine Sulfate (morphine) 0.5 mg ONCE ONCE IV ; Start 11/16/16 at 17:00; Stop 11/16/16 at 17:01; Status MULUGETA KUHN Nov 16, 2016 16:46
[2016-11-16 16:56] VITALS: Ht 134.6 cm; Wt 84.9 kg
[2016-11-16] MEDS ORDERED: morphine 2 MG INJ IV ONE (17:00)
[2016-11-16 17:26] LABS: MAGNESIUM 1.7 mg/dl (1.7-2.5)
[2016-11-16 17:27] LABS: CHOL/HDL RATIO 2.8 RATIO
[2016-11-16] MEDS: SOD CHLORIDE 0.9% 1,000 ML IV SCH (17:29)
[2016-11-16] MEDS ORDERED: IOHEXOL 300MG/ML 150 ML BTL ONE (18:08)
[2016-11-16] MEDS ORDERED: SOD CHLORIDE 0.9% 100 ML ONE (18:08)
[2016-11-16] MEDS: ONDANSETRON 4 MG INJ IV PRN (18:17)
[2016-11-16 18:22] LABS: THYROID STIMULATING HORMONE 0.148 MIU/L (0.465-4.680)
--- NOTE | 2016-11-16 19:37 | RADRPT ---
PROCEDURE: CT Abdomen and Pelvis with contrast. CLINICAL INDICATION: Abdominal pain TECHNIQUE: CT scan of the abdomen and pelvis with contrast was performed on a multidetector high-res olution CT scanner. The patient was scanned after the uneventful administration of 100 cc of Omnipaq [id number]. Coronal and sagittal reformatted images were obtained from the axial source images. Images were reviewed on a high-resolution PACS workstation. The total exam CTDI equals 17.68 mGy and the t otal exam DLP equals 1058.4 mGy-cm. COMPARISON: CT abdomen and pelvis 11/14/2016 FINDINGS: CT abdomen: The lung bases are remarkable for subsegmental atelectasis. The heart size is normal, without perica rdial thickening or effusion. The liver is normal in size and density without focal mass or intrahep atic biliary dilatation. The spleen is normal in size and homogeneous in density. There are postsurgical changes of gastric bypass surgery. The stomach is partially collapsed, but is grossly unremarkable. The pancreas as visualized is normal. The gallbladder is surgically absent. T here is no evidence for biliary dilatation. The adrenal glands are symmetric and normal. The kidneys are symmetrically unremarkable as well. No renal calculus or obstructive uropathy or mass lesion is seen. The aorta is of normal caliber. There is no retroperitoneal lymphadenopathy. The kristen hepatis regio n is clear. The bowel and mesentery, as visualized, are equally unremarkable. There is diverticulosi s of the descending and sigmoid colon without evidence of acute diverticulitis. CT pelvis: The small bowel loops situated within the pelvis are unremarkable. There is a normal appendix. IUD i s in place. There is approximately 3.5 cm hypodensity in the right adnexa and 4 cm hypodensity in th e left adnexa. The pelvic sidewalls and inguinal regions are clear. The sigmoid colon and rectum are remarkable for sigmoid diverticulosis. No mass, lymphadenopathy, or free fluid is seen. No acute in flammation is seen. There is left pars interarticularis defect without spondylolisthesis. The surrou nding osseous structures are remarkable for degenerative spondylosis of the spine. Posterior disk os teophyte complex at L2-L3 result in mild canal narrowing. No osteolytic or osteoblastic lesion is d etected. IMPRESSION: 1. No mass, lymphadenopathy, or focal acute inflammatory process is identified. 2. Diverticulosis without evidence of acute diverticulitis. 3. Status post gastric bypass surgery and cholecystectomy. No biliary ductal dilatation. 4. Stable appearance of 3.5-4 cm hypodensities in bilateral adnexa likely representing ovarian cyst s. Consider pelvic ultrasound for further evaluation. 5. IUD is in appropriate position. RPTAT: QQ .Nick Knight MD, MD Date Time Electronically viewed and signed by .Nick Knight MD, on 11/16/2016 19:37 .A/
[2016-11-16 20:28] VITALS: BP 134/87; RESP 18
[2016-11-16] MEDS: FAMOTIDINE 20 MG INJ IV SCH (20:50)
[2016-11-16] MEDS: CIPROFLOXACIN 400MG/D5W 200 ML IVPB SCH (20:51)
[2016-11-16] MEDS: morphine 2 MG INJ IV PRN (20:51)
[2016-11-16] MEDS: metroNIDAZOLE 500 MG/NS (PMX) 100 ML IVPB SCH (22:29)
[2016-11-17] VITALS (19 sets, daily range): BP systolic 130–155; BP diastolic 76–99; PULSE 48–77; RESP 15–20
[2016-11-17] MEDS: morphine 2 MG INJ IV PRN ×6 (00:40→17:14)
[2016-11-17] MEDS: ONDANSETRON 4 MG INJ IV PRN ×2 (03:46→11:22)
[2016-11-17] MEDS: SOD CHLORIDE 0.9% 1,000 ML IV SCH ×2 (04:59→18:19)
[2016-11-17] MEDS: metroNIDAZOLE 500 MG/NS (PMX) 100 ML IVPB SCH ×3 (05:57→22:42)
[2016-11-17 06:11] LABS: BASOPHIL # 0.1 10^3/ul (0.0-0.1); BASOPHILS % 0.5 % (0.0-2.0); EOSINOPHILS # 0.1 10^3/ul (0.0-0.5); EOSINOPHILS % 0.5 % (0.0-7.0); HEMOGLOBIN 11.9 g/dl (12.0-16.0); LYMPHOCYTES % 13.5 % (15.0-51.0); MEAN CORPUSCULAR HEMOGLOBIN 26.4 pg (29.0-33.0); MEAN CORPUSCULAR VOLUME 80.1 fl (82.0-101.0); MEAN PLATELET VOLUME 7.9 fl (7.4-10.4); MONOCYTE # 1.1 10^3/ul (0.3-0.9); MONOCYTES % 7.1 % (0.0-11.0); NEUTROPHIL # 11.8 10^3/ul (1.6-7.5); NEUTROPHILS % 78.4 % (39.0-77.0); PLATELET COUNT 439 10^3/UL (140-440); RED CELL DISTRIBUTION WIDTH 15.3 % (11.5-14.5)
[2016-11-17 06:17] LABS: CONDITION 1; LH ANALYZER COMMENTS 1; POTASSIUM 3.9 mmol/L (3.5-5.1)
[2016-11-17 06:20] LABS: CREATININE 0.54 mg/dl (0.44-1.00)
[2016-11-17] MEDS: CIPROFLOXACIN 400MG/D5W 200 ML IVPB SCH ×2 (08:05→20:57)
[2016-11-17] MEDS: METOCLOPRAMIDE 10 MG INJ IV PRN ×2 (08:05→17:14)
[2016-11-17] MEDS: FAMOTIDINE 20 MG INJ IV SCH (08:05)
[2016-11-17] MEDS ORDERED: INFLUENZA VIRUS VACCINE 0.5 ML SYG IM* ONE (09:00)
--- NOTE | 2016-11-17 11:42 | CONS ---
Date/Time of Note Date/Time of Note DATE: 11/17/16 TIME: 11:36 Assessment/Plan Assessment/Plan Additional Assessment/Plan Abdominal pain/nausea/vomiting * EGD today. Advised patient of R/B/A of procedure and is agreeable to proceed * Monitor H&H every 6, transfuse 2 units for hemoglobin less than 7.5 * PPI therapy * N.p.o. Further recommendations depend on clinical course Consultation Date/Type/Reason Admit Date/Time Nov 16, 2016 at 15:11 Type of Consultation: Gastroenterology Reason for Consultation Abdominal pain Hx of Present Illness 31-year-old female with reports of intense abdominal pain, nausea, nonbloody bilious vomiting for the last 5 days. Patient reports abrupt onset. Denies diarrhea, hematochezia, fever, chills, travel outside the [place], previous episode, and history of GERD. Patient has history of cholecystectomy and gastric bypass in 2012 with 113 pound weight loss. At bedside patient is writhing in pain and unable to provide complete history due to complaints of intense abdominal pain. Patient states pain is diffuse and very tender to touch. Patient consents to EGD. Lipase is within normal limits and CT abdomen notes 1. No mass, lymphadenopathy, or focal acute inflammatory process is identified. 2. Diverticulosis without evidence of acute diverticulitis. 3. Status post gastric bypass surgery and cholecystectomy. No biliary ductal dilatation. Advised her of risks/benefits/alternatives to procedure and she is agreeable to proceed. Per HPI Past Surgical History Past Surgical Hx: cholecystectomy, other (Gastric bypass) Social History Alcohol Use: none Smoking Status: Never smoker Drug Use: none Exam/Review of Systems Vital Signs Vitals Vital Signs Date Time Temp Pulse Resp B/P Pulse Ox O2 Delivery O2 Flow Rate FiO2 11/17/16 08:17 98.4 53 17 134/99 96 11/16/16 16:15 Room Air Intake and Output 11/16/16 11/16/16 11/17/16 15:00 23:00 07:00 Intake Total 1150 ml Output Total 0 ml Balance 1150 ml Exam Constitutional: alert, distress, oriented, well developed Psych: other (Very anxious) Eyes: EOMI ENMT: mucosa pink and moist, nl external ears & nose, nl lips & teeth, nl nasal mucosa & septum Respiratory: normal air movement Cardiovascular: regular rate and rhythm Gastrointestinal: soft, tender (Diffuse tenderness) Neurological: SERVICER TRAVEL TRAILERS II-XII intact Results Result Diagram: 11/17/16 0503 11/17/16 0503 Results 24 hrs Laboratory Tests Test 11/16/16 13:15 11/16/16 17:02 11/17/16 05:03 Alanine Aminotransferase (ALT/SGPT) 25 Albumin 4.5 Albumin/Globulin Ratio 1.25 Alkaline Phosphatase 106 Anion Gap 22 H 17 H Aspartate Amino Transf (AST/SGOT) 25 Basophils # 0.0 0.1 Basophils % 0.0 0.5 Blood Morphology Comment Blood Urea Nitrogen 11 9 Calcium Level 9.3 9.0 Carbon Dioxide Level 25 26 Chloride Level 100 101 Creatinine 0.53 0.54 Direct Bilirubin 0.00 Eosinophils # 0.0 0.1 Eosinophils % 0.0 0.5 Globulin 3.60 H Glucose Level 129 # 97 Hematocrit 41.6 36.0 L Hemoglobin 13.6 11.9 L Indirect Bilirubin 0.7 Lipase 89 Lymphocytes # 0.9 2.0 Lymphocytes % 6.0 L 13.5 L Mean Corpuscular Hemoglobin 26.2 L 26.4 L Mean Corpuscular Hemoglobin Concent 32.8 33.0 Mean Corpuscular Volume 79.7 L 80.1 L Mean Platelet Volume 7.8 7.9 Monocytes # 0.1 L 1.1 H Monocytes % 0.4 7.1 Neutrophils # 14.5 H 11.8 H Neutrophils % 93.6 H 78.4 H Nucleated Red Blood Cells # 0.0 0.0 Nucleated Red Blood Cells % 0.0 0.0 Platelet Count 428 439 Potassium Level 4.1 3.9 Red Blood Count 5.22 4.50 Red Cell Distribution Width 15.4 H 15.3 H Sodium Level 143 140 Total Bilirubin 0.7 Total Protein 8.1 White Blood Count 15.5 #H 15.0 H Beta HCG, Quantitative < 2.4 Cholesterol Level 124 Cholesterol/HDL Ratio 2.8 HDL Cholesterol 44 LDL Cholesterol, Calculated 64 Lactic Acid Level 2.2 Magnesium Level 1.7 Thyroid Stimulating Hormone (TSH) 0.148 L Triglycerides Level 82 Medications Medications Current Medications Sodium Chloride (NS) 1,000 ml @ 75 mls/hr [id number] IV Last administered on t 17:29; Admin Dose 75 MLS/HR; Start 11/16/16 at 15:39 Ondansetron HCl (Zofran Inj) 4 mg Q6H PRN IV NAUSEA AND/OR VOMITING Last administered on 11/17/16 11:22; Admin Dose 4 MG; Start 11/16/16 at 16:00 Acetaminophen (Tylenol Supp) 650 mg Q6H PRN [place] PAIN LEVEL 1-3 OR FEVER; Start 11/16/16 at 16:00 Morphine Sulfate (morphine) 2 mg Q4H PRN IV SEVERE PAIN LEVEL 7-10 Last administered on 11/17/16 08:10; Admin Dose 2 MG; Start 11/16/16 at 16:00 Bisacodyl (Dulcolax) 5 mg DAILY PRN PO CONSTIPATION; Start 11/16/16 at 16:00 Famotidine 20 mg 20 mg Q12 IV Last administered on 11/17/16 08:05; Admin Dose 20 MG; Start 11/16/16 at 21:00 Ciprofloxacin/ Dextrose 200 ml @ 200 mls/hr Q12 IVPB Last administered on 08:05; Admin Dose 200 MLS/HR; Start 11/16/16 at 21:00 Metronidazole (Flagyl 500 Mg (Pmx)) 100 ml @ 100 mls/hr Q8 IVPB Last administered on 11/17/16 05:57; Admin Dose 100 MLS/HR; Start 11/16/16 at 22:00 Ondansetron HCl (Zofran Inj) 4 mg ONCE PRN IV NAUSEA AND/OR VOMITING Last administered on 11/17/16 00:35; Admin Dose 4 MG; Start 11/16/16 at 23:00; Stop at 22:59 Metoclopramide HCl (Reglan) 5 mg Q6H PRN IV NAUSEA Last administered on 08:05; Admin Dose 5 MG; Start 11/17/16 at 07:30 NATALIIA HARDING MD Nov 17, 2016 11:42
--- NOTE | 2016-11-17 15:22 | CONS ---
Date/Time of Note Date/Time of Note DATE: 11/17/16 TIME: 15:19 Consult Date/Type/Reason Admit Date/Time Nov 16, 2016 at 15:11 Initial Consult Date Type of Consultation: internal medicine Subjective Patient still continues to have significant abdominal pain She is tearful and in distress Mild nausea but no vomiting Objective Vital Signs Date Time Temp Pulse Resp B/P Pulse Ox O2 Delivery O2 Flow Rate FiO2 11/17/16 08:17 98.4 53 17 134/99 96 11/16/16 16:15 Room Air Intake and Output 11/16/16 11/16/16 11/17/16 15:00 23:00 07:00 Intake Total 1150 ml Output Total 0 ml Balance 1150 ml GENERAL: Well-nourished well-developed lady VITAL SIGNS: per chart NECK: Supple. No JVD or lymphadenopathy. CARDIAC EXAM: S1, S2. No added sounds or murmurs. CHEST: clear bilaterally, No added sounds, rales or wheezes ABDOMEN: Soft, nontender. No guarding or rebound. Decreased bowel sounds EXTREMITIES: No cyanosis, clubbing or edema. NEUROLOGIC: Generalized weakness. No focal deficits. Results/Medications Result Diagram: 11/17/16 0503 11/17/16 0503 Results 24 hrs Laboratory Tests Test 11/16/16 17:02 11/17/16 05:03 Beta HCG, Quantitative < 2.4 Cholesterol Level 124 Cholesterol/HDL Ratio 2.8 HDL Cholesterol 44 LDL Cholesterol, Calculated 64 Lactic Acid Level 2.2 Magnesium Level 1.7 Thyroid Stimulating Hormone (TSH) 0.148 L Triglycerides Level 82 Anion Gap 17 H Basophils # 0.1 Basophils % 0.5 Blood Morphology Comment Blood Urea Nitrogen 9 Calcium Level 9.0 Carbon Dioxide Level 26 Chloride Level 101 Creatinine 0.54 Eosinophils # 0.1 Eosinophils % 0.5 Glucose Level 97 Hematocrit 36.0 L Hemoglobin 11.9 L Lymphocytes # 2.0 Lymphocytes % 13.5 L Mean Corpuscular Hemoglobin 26.4 L Mean Corpuscular Hemoglobin Concent 33.0 Mean Corpuscular Volume 80.1 L Mean Platelet Volume 7.9 Monocytes # 1.1 H Monocytes % 7.1 Neutrophils # 11.8 H Neutrophils % 78.4 H Nucleated Red Blood Cells # 0.0 Nucleated Red Blood Cells % 0.0 Platelet Count 439 Potassium Level 3.9 Red Blood Count 4.50 Red Cell Distribution Width 15.3 H Sodium Level 140 White Blood Count 15.0 H Medications Current Medications Sodium Chloride (NS) 1,000 ml @ 75 mls/hr [id number] IV Last administered on 17:29; Admin Dose 75 MLS/HR; Start 11/16/16 at 15:39 Ondansetron HCl (Zofran Inj) 4 mg Q6H PRN IV NAUSEA AND/OR VOMITING Last administered on 11/17/16 11:22; Admin Dose 4 MG; Start 11/16/16 at 16:00 Acetaminophen (Tylenol Supp) 650 mg Q6H PRN [place] PAIN LEVEL 1-3 OR FEVER; Start 11/16/16 at 16:00 Bisacodyl (Dulcolax) 5 mg DAILY PRN PO CONSTIPATION; Start 11/16/16 at 16:00 Famotidine 20 mg 20 mg Q12 IV Last administered on 11/17/16 08:05; Admin Dose 20 MG; Start 11/16/16 at 21:00 Ciprofloxacin/ Dextrose 200 ml @ 200 mls/hr Q12 IVPB Last administered on 08:05; Admin Dose 200 MLS/HR; Start 11/16/16 at 21:00 Metronidazole (Flagyl 500 Mg (Pmx)) 100 ml @ 100 mls/hr Q8 IVPB Last administered on 11/17/16 14:25; Admin Dose 100 MLS/HR; Start 11/16/16 at 22:00 Ondansetron HCl (Zofran Inj) 4 mg ONCE PRN IV NAUSEA AND/OR VOMITING Last administered on 11/17/16 00:35; Admin Dose 4 MG; Start 11/16/16 at 23:00; Stop at 22:59 Metoclopramide HCl (Reglan) 5 mg Q6H PRN IV NAUSEA Last administered on 08:05; Admin Dose 5 MG; Start 11/17/16 at 07:30 Morphine Sulfate (morphine) 2 mg Q2H PRN IV pain Last administered on 11/17/16 14:53; Admin Dose 2 MG; Start 11/17/16 at 15:00 Assessment/Plan Chief Complaint/Hosp Course Assessment and plan 1. Diffuse abdominal pain. Etiology is unclear. Patient has had extensive abdominal problems following gastric bypass surgery in 2013 including a year of inpatient care requiring TPN and G-tube in the past. GI evaluation is appreciated pending endoscopy and possible colonoscopy. Continue empiric antibiotics of Flagyl and Cipro for now. 2. Possible opioid dependence we'll monitor closely. 3. History of major depression. We'll continue patient's antidepressants. No reports of suicidal ideation at this time. 4. Leukocytosis. Patient remains afebrile. Etiology unknown. Continue current antibiotics pending cultures 5. Diverticulosis without evidence of diverticulitis per CT scan of the abdomen on 11/14/2016. Patient was impaired be started on Cipro and Flagyl. We'll continue for now. We'll follow-up on garcia cultures. Problems: WAQAS BURKETT MD, [facility] Nov 17, 2016 15:22
[2016-11-17] MEDS ORDERED: PROPOFOL 20 ML ONE (19:28)
[2016-11-17] MEDS ORDERED: MIDAZOLAM 1 MG/ML 2 ML INJ IV PRN (20:00)
[2016-11-17] MEDS ORDERED: ONDANSETRON 4 MG INJ IV PRN (20:00)
[2016-11-17] MEDS ORDERED: METOCLOPRAMIDE 10 MG INJ IV PRN (20:00)
[2016-11-17] MEDS ORDERED: FENTAnyl 50 MCG/ML VIAL IV PRN ×2 (20:00)
[2016-11-17] MEDS ORDERED: MEPERIDINE 25 MG INJ IV PRN (20:00)
[2016-11-17] MEDS ORDERED: DIPHENHYDRAMINE 50 MG INJ IV PRN (20:00)
[2016-11-17] MEDS ORDERED: FENTAnyl 50 MCG/ML VIAL ONE (20:03)
[2016-11-17] MEDS: SUCRALFATE (100 MG/ML) 10ML CUP PO SCH (21:00)
[2016-11-17] MEDS: HEPARIN 5,000 UNIT/0.5 ML SYG SC SCH (21:03)
[2016-11-17] MEDS: HYDROmorphONE 1 MG/ML SYG IV PRN (21:04)
[2016-11-18] MEDS: METOCLOPRAMIDE 10 MG INJ IV PRN ×2 (01:03→14:19)
[2016-11-18] MEDS: HYDROmorphONE 1 MG/ML SYG IV PRN ×2 (01:04→05:20)
[2016-11-18 01:08] VITALS: BP 154/90; PULSE 65; RESP 19
[2016-11-18] MEDS: ONDANSETRON 4 MG INJ IV PRN ×3 (04:01→20:02)
[2016-11-18] MEDS: metroNIDAZOLE 500 MG/NS (PMX) 100 ML IVPB SCH ×3 (05:19→21:53)
[2016-11-18] MEDS: PANTOPRAZOLE (EC) 40 MG TAB PO SCH (05:20)
[2016-11-18 05:50] LABS: BASOPHIL # 0.1 10^3/ul (0.0-0.1); BASOPHILS % 0.6 % (0.0-2.0); EOSINOPHILS # 0.2 10^3/ul (0.0-0.5); EOSINOPHILS % 1.9 % (0.0-7.0); HEMATOCRIT 37.8 % (37.0-47.0); HEMOGLOBIN 12.4 g/dl (12.0-16.0); LYMPHOCYTES # 2.3 10^3/ul (0.8-2.9); LYMPHOCYTES % 26.5 % (15.0-51.0); MEAN CORPUSCULAR HEMOGLOBIN 26.5 pg (29.0-33.0); MEAN CORPUSCULAR HGB CONC 32.9 g/dl (32.0-37.0); MEAN CORPUSCULAR VOLUME 80.5 fl (82.0-101.0); MEAN PLATELET VOLUME 7.6 fl (7.4-10.4); MONOCYTE # 0.8 10^3/ul (0.3-0.9); MONOCYTES % 9.4 % (0.0-11.0); NEUTROPHIL # 5.4 10^3/ul (1.6-7.5); NEUTROPHILS % 61.6 % (39.0-77.0); PLATELET COUNT 378 10^3/UL (140-440); RED CELL DISTRIBUTION WIDTH 15.2 % (11.5-14.5); UNCORRECTED WBC 8.7 10^3/ul (4.8-10.8); WHITE BLOOD COUNT 8.7 10^3/ul (4.8-10.8)
[2016-11-18 05:55] LABS: POTASSIUM 3.6 mmol/L (3.5-5.1)
[2016-11-18 05:57] LABS: CREATININE 0.59 mg/dl (0.44-1.00)
[2016-11-18 05:58] LABS: CALCIUM 8.7 mg/dl (8.4-10.2); PHOSPHORUS 3.6 mg/dl (2.5-4.9)
[2016-11-18 05:59] LABS: MAGNESIUM 1.7 mg/dl (1.7-2.5)
[2016-11-18 06:10] LABS: CONDITION 1; LH ANALYZER COMMENTS 1
[2016-11-18 07:29] VITALS: BP 135/91; RESP 18
[2016-11-18 07:52] LABS: ALBUMIN 3.9 g/dl (3.3-4.9)
[2016-11-18 07:55] LABS: BILIRUBIN,INDIRECT 0.6 mg/dl (0-1.1); BILIRUBIN,TOTAL 0.6 mg/dl (0.2-1.3); TOTAL PROTEIN 7.2 g/dl (6.1-8.1)
[2016-11-18] MEDS: SUCRALFATE (100 MG/ML) 10ML CUP PO SCH ×4 (09:49→20:02)
[2016-11-18] MEDS: CIPROFLOXACIN 400MG/D5W 200 ML IVPB SCH ×2 (09:49→21:53)
[2016-11-18] MEDS ORDERED: traMADol 50 MG TAB PO PRN (10:00)
[2016-11-18] MEDS: HEPARIN 5,000 UNIT/0.5 ML SYG SC SCH ×2 (10:50→22:00)
--- NOTE | 2016-11-18 11:34 | CONS ---
DATE OF ADMISSION: 11/16/2016 DATE OF CONSULTATION: 11/18/2016 HISTORY OF PRESENT ILLNESS: This is a 31-year-old female who presented to [facility] with diffuse abdominal discomfort. She describes it as a periumbilical pain without radiations into her bilateral upper quadrants or her back. She states this is continual pain without peaks and troughs associated with it. She scales this as 10/10. There is no nausea, vomiting, fevers, or ch ills associated with it. No urinary tract symptoms associated with. Denies frequency, dysuria or di arrhea. There is no past medical history that she admits to of opioids or substance abuse. Patient states she only takes Tylenol or Motrin at home for abdominal discomfort. She states she has had t his pain since 2012 after she had gastric bypass surgery, but has been told by the [facility] physician she can no longer go there to see them since her insurance has changed. She delivered her baby appr oximately 6 months ago. She told her consumer loan specialist at that time she was having abdominal discomfort. She had a CT scan done in the emergency room at [facility] on admission which sh owed evidence of diverticulosis without diverticulitis. A pelvic ultrasound was done that showed ec hogenic ICD in the endometrial canal. Additionally, on a CT scan of the abdomen no masses, lymphade nopathy or focal acute inflammatory process was identified, status post gastric bypass surgery and c holecystectomy, no biliary duct dilation. Stable appearance of 3.5 to 4 cm hypodensities in bilater al adnexa, likely representing ovarian cysts. Consider pelvic ultrasound which has been completed, and IUD in appropriate position. Additionally, laboratory tests showed no leukocytosis. She has n o metabolic abnormalities. Liver functions tests are normal. She has had an extensive workup thus far. she has been seen by GI but results of the EGD are not available in patient's medical records a t this time - pending. MEDICATIONS: Please refer to reconciliation sheets. ALLERGIES: TRAMADOL, IBUPROFEN. MAJOR MEDICAL PROBLEMS IN THE PAST: Entirely per history of present illness. SOCIAL HISTORY: Lives with . No history of smoking or drinking or substance abuse. FAMILY HISTORY: Noncontributory. REVIEW OF SYSTEMS: A 12-point review of systems is unremarkable except as per history of present il lness. PHYSICAL EXAMINATION: GENERAL: An obese female who is in no major acute distress. She is not moaning, groaning on examin ation. She appears to be somewhat somnolent. VITAL SIGNS: Blood pressure 135/91, pulse 54 and regular, respirations of 18, temperature of 97.9 d egrees, 95% saturations on room. HEENT: She is normocephalic and atraumatic, anicteric, acyanotic on examination. LUNGS: Shows clear breath sounds throughout both lung murphy. COR: Regular rate and rhythm. ABDOMEN: Soft, benign. Normoactive bowel sounds throughout all 4 quadrants. No gross rebound ash toneal signs or organomegaly can be appreciated. ASSESSMENT AND PLAN: The patient is being worked up by GI at this time pending results of EGD. I had explained to her that the use of opioids is contraindicated without a diagnosis and that I will take her off of those at this time. She states she is ALLERGIC TO IBUPROFEN, but she has been it sarita ing at home and that she is ALLERGIC TO TRAMADOL. Given that I will only treat her with low dose of alternative at this time. Adjuvant pain control medications to be determined, but definitely will withhold the use of opioids. Dictated By: DESEAN RIDDLE MD, LP/XANDER Conf#: [id number] DID#: [id number]
--- NOTE | 2016-11-18 12:33 | PN ---
Date/Time of Note Date/Time of Note DATE: 11/18/16 TIME: 12:22 Assessment/Plan VTE Prophylaxis VTE Prophylaxis Intervention: heparin Lines/Catheters IV Catheter Type (from Nrsg): Peripheral IV Assessment/Plan Assessment/Plan 1. Diffuse abdominal pain. s/p EGD 11/17/[address] Jaime. 2. Suspect opioid abuse. We'll get pain management physician to follow. Of note this history was obtained from the patient's who did report that the patient did have somewhat of an opiate tolerance after her gastric bypass surgery. We'll follow up on home medications 3. History of major depression. We'll continue patient's antidepressants. No reports of suicidal ideation at this time. 4. Leukocytosis. Patient remains afebrile. Etiology unknown. We'll follow up on garcia cultures. 5. Diverticulosis without evidence of diverticulitis per CT scan of the abdomen on 11/14/2016. Patient was impaired be started on Cipro and Flagyl. We'll continue for now. We'll follow-up on garcia cultures. 6. Anxiety. We'll provide with anxiolytics as needed. Subjective 24 Hr Interval Summary Free Text/Dictation This is a 31-year-old female with past medical history of gastric bypass and cholecystectomy as well as anxiety and major depression, with also reports of chronic abdominal pain who came to [facility] after reports of having abdominal pain for several days. She did report that the pain initially started in her lower abdominal area and then started to radiate up to her upper abdomen. She did report having some nausea and vomiting associated with this issue not bloody by greenish in appearance. Patient was initially had [facility] on 11/14/2016 for this issue for which she did have CT scan of the abdomen that did show diverticulosis but no evidence of diverticulitis. She also did have pelvic ultrasound done that did show echogenic IUD in the endometrial canal. It also did show trace free fluid in the cervical canal but likely related to menses. Is also showed a 3.17 m simple cyst on left ovary and 2.9 cm simple cyst on the right ovary. Patient was also seen with a white count of 15.5 but remained afebrile. She did report having subjective chills while she was at home. Her most recent abdominal x-ray done on 11/16/2016 did show no evidence of obstruction or free air. Patient denies ever having had colonoscopy or EGD. She has not seen a decorating instructor. Of note, we also did discuss with the patient's who did report that sometime ago after patient's gastric bypass procedure she did developed somewhat of an opiate tolerance. Patient was seen in the bed shaking her hands in the air requesting for Dilaudid pain medication. We will monitor for the aforementioned issues Patient complains of pain all over the abdomen with nausea and vomiting today. Constitutional: no complaints Eyes: no complaints ENT: no complaints Respiratory: no complaints Cardiovascular: no complaints Genitourinary: no complaints Musculoskeletal: no complaints Skin: no complaints Neurologic: no complaints Endocrine: no complaints Lymphatic: no complaints Exam/Review of Systems Vital Signs Vitals Vital Signs Date Time Temp Pulse Resp B/P Pulse Ox O2 Delivery O2 Flow Rate FiO2 11/18/16 07:29 97.9 54 18 135/91 95 11/17/16 22:45 Room Air 11/17/16 19:57 2.0 Intake and Output 11/17/16 11/17/16 11/18/16 15:00 23:00 07:00 Intake Total 200 ml 850 ml 300 ml Output Total 150 ml 400 ml 1600 ml Balance 50 ml 450 ml -1300 ml Exam Constitutional: alert, oriented, well developed Psych: anxiety Head: atraumatic, normocephalic Eyes: EOMI, nl conjunctiva, nl lids ENMT: nl external ears & nose, nl lips & teeth, nl nasal mucosa & septum Neck: non-tender, supple Respiratory: clear to auscultation, normal air movement Cardiovascular: nl pulses, regular rate and rhythm Gastrointestinal: nl liver, spleen, soft, tender (diffusely) Genitourinary - Female: nl adnexae Musculoskeletal: nl extremities to inspection, nl gait and stance Neurological: FIELD ORGANIZER II-XII intact, nl mental status, nl speech Skin: nl turgor, rash or lesions Lymph: nl lymph nodes Results Result Diagram: 11/18/1617 11/18/1617 Results 24 hrs Laboratory Tests Test 11/18/16 05:17 Alanine Aminotransferase (ALT/SGPT) 29 Albumin 3.9 Alkaline Phosphatase 79 Anion Gap 16 Aspartate Amino Transf (AST/SGOT) 25 Basophils # 0.1 Basophils % 0.6 Blood Morphology Comment Blood Urea Nitrogen 7 Calcium Level 8.7 Carbon Dioxide Level 29 Chloride Level 99 Creatinine 0.59 Direct Bilirubin 0.00 Eosinophils # 0.2 Eosinophils % 1.9 Glucose Level 89 Hematocrit 37.8 Hemoglobin 12.4 Indirect Bilirubin 0.6 Lymphocytes # 2.3 Lymphocytes % 26.5 Magnesium Level 1.7 Mean Corpuscular Hemoglobin 26.5 L Mean Corpuscular Hemoglobin Concent 32.9 Mean Corpuscular Volume 80.5 L Mean Platelet Volume 7.6 Monocytes # 0.8 Monocytes % 9.4 Neutrophils # 5.4 Neutrophils % 61.6 Nucleated Red Blood Cells # 0.0 Nucleated Red Blood Cells % 0.0 Phosphorus Level 3.6 Platelet Count 378 Potassium Level 3.6 Red Blood Count 4.70 Red Cell Distribution Width 15.2 H Sodium Level 140 Total Bilirubin 0.6 Total Protein 7.2 White Blood Count 8.7 # Medications Medications Current Medications Sodium Chloride (NS) 1,000 ml @ 75 mls/hr [id number] IV Last administered on 17:29; Admin Dose 75 MLS/HR; Start 11/16/16 at 15:39 Ondansetron HCl (Zofran Inj) 4 mg Q6H PRN IV NAUSEA AND/OR VOMITING Last administered on 11/18/16 09:52; Admin Dose 4 MG; Start 11/16/16 at 16:00 Acetaminophen (Tylenol Supp) 650 mg Q6H PRN [place] PAIN LEVEL 1-3 OR FEVER; Start 11/16/16 at 16:00 Bisacodyl 5 mg 5 mg DAILY PRN PO CONSTIPATION; Start 11/16/16 at 16:00 Ciprofloxacin/ Dextrose 200 ml @ 200 mls/hr Q12 IVPB Last administered on 11/18 09:49; Admin Dose 200 MLS/HR; Start 11/16/16 at 21:00 Metronidazole (Flagyl 500 Mg (Pmx)) 100 ml @ 100 mls/hr Q8 IVPB Last administered on 11/18/16 05:19; Admin Dose 100 MLS/HR; Start 11/16/16 at 22:00 Metoclopramide HCl (Reglan) 5 mg Q6H PRN IV NAUSEA Last administered on 01:03; Admin Dose 5 MG; Start 11/17/16 at 07:30 Heparin Sodium (Porcine) (Heparin (5000 Units/0.5 ml)) 5,000 unit BID SC Last administered on 11/18/16 10:50; Admin Dose 5,000 UNIT; Start 11/17/16 at 21:00 Pantoprazole (Protonix Tab) 40 mg DAILY@06 PO Last administered on 11/18/16 05 :20; Admin Dose 40 MG; Start 11/18/16 at 06:00 Sucralfate (Carafate Susp) 1 gm QID PO Last administered on 11/18/16 09:49; Admin Dose 1 GM; Start 11/17/16 at 21:00 RYANN BUTLER MD Nov 18, 2016 12:32
[2016-11-18] MEDS: SOD CHLORIDE 0.9% 1,000 ML IV SCH ×2 (14:12→21:53)
--- NOTE | 2016-11-18 14:17 | CONS ---
Date/Time of Note Date/Time of Note DATE: 11/18/16 TIME: 14:13 Assessment/Plan Assessment/Plan Additional Assessment/Plan Abdominal pain/nausea/vomiting * Mild esophagitis, follow-up on biopsy * Monitor H&H every 6, transfuse 2 units for hemoglobin less than 7.5 * PPI therapy, Carafate 4 times daily * Advance diet as tolerated Further recommendations depend on clinical course Patient seen in collaboration with Dr. Jaime Consultation Date/Type/Reason Admit Date/Time Nov 16, 2016 at 15:11 Initial Consult Date Type of Consultation: internal medicine 24 HR Interval Summary Free Text/Dictation Advised patient of test results Patient to continue Carafate and Protonix as prescribed Patient to follow-up with office for biopsy results Patient stable from GI standpoint for discharge EGD notes followin mild esophagitis 2. Post bariatric surgery 3. Small gastric pouch biopsy to rule out H. pylori 4. Lotus Y anastomosis clean and normal 5. Continue PPI and Carafate Exam/Review of Systems Vital Signs Vitals Vital Signs Date Time Temp Pulse Resp B/P Pulse Ox O2 Delivery O2 Flow Rate FiO2 11/18/16 07:29 97.9 54 18 135/91 95 11/17/16 22:45 Room Air 11/17/16 19:57 2.0 Intake and Output 11/17/16 11/17/16 11/18/16 15:00 23:00 07:00 Intake Total 200 ml 850 ml 300 ml Output Total 150 ml 400 ml 1600 ml Balance 50 ml 450 ml -1300 ml Exam Constitutional: alert, distress, oriented, well developed Psych: other (Very anxious) Eyes: EOMI ENMT: mucosa pink and moist, nl external ears & nose, nl lips & teeth, nl nasal mucosa & septum Respiratory: normal air movement Cardiovascular: regular rate and rhythm Gastrointestinal: soft, tender (Diffuse tenderness) Neurological: SPRING WINDER II-XII intact Results Result Diagram: 11/18/1617 11/18/1617 Results 24 hrs Laboratory Tests Test 11/18/16 05:17 Alanine Aminotransferase (ALT/SGPT) 29 Albumin 3.9 Alkaline Phosphatase 79 Anion Gap 16 Aspartate Amino Transf (AST/SGOT) 25 Basophils # 0.1 Basophils % 0.6 Blood Morphology Comment Blood Urea Nitrogen 7 Calcium Level 8.7 Carbon Dioxide Level 29 Chloride Level 99 Creatinine 0.59 Direct Bilirubin 0.00 Eosinophils # 0.2 Eosinophils % 1.9 Glucose Level 89 Hematocrit 37.8 Hemoglobin 12.4 Indirect Bilirubin 0.6 Lymphocytes # 2.3 Lymphocytes % 26.5 Magnesium Level 1.7 Mean Corpuscular Hemoglobin 26.5 L Mean Corpuscular Hemoglobin Concent 32.9 Mean Corpuscular Volume 80.5 L Mean Platelet Volume 7.6 Monocytes # 0.8 Monocytes % 9.4 Neutrophils # 5.4 Neutrophils % 61.6 Nucleated Red Blood Cells # 0.0 Nucleated Red Blood Cells % 0.0 Phosphorus Level 3.6 Platelet Count 378 Potassium Level 3.6 Red Blood Count 4.70 Red Cell Distribution Width 15.2 H Sodium Level 140 Total Bilirubin 0.6 Total Protein 7.2 White Blood Count 8.7 # Medications Medications Current Medications Sodium Chloride (NS) 1,000 ml @ 75 mls/hr [id number] IV Last administered on 17:29; Admin Dose 75 MLS/HR; Start 11/16/16 at 15:39 Ondansetron HCl (Zofran Inj) 4 mg Q6H PRN IV NAUSEA AND/OR VOMITING Last administered on 11/18/16 09:52; Admin Dose 4 MG; Start 11/16/16 at 16:00 Acetaminophen (Tylenol Supp) 650 mg Q6H PRN [place] PAIN LEVEL 1-3 OR FEVER; Start 11/16/16 at 16:00 Bisacodyl 5 mg 5 mg DAILY PRN PO CONSTIPATION; Start 11/16/16 at 16:00 Ciprofloxacin/ Dextrose 200 ml @ 200 mls/hr Q12 IVPB Last administered on 11/18 09:49; Admin Dose 200 MLS/HR; Start 11/16/16 at 21:00 Metronidazole (Flagyl 500 Mg (Pmx)) 100 ml @ 100 mls/hr Q8 IVPB Last administered on 11/18/16 05:19; Admin Dose 100 MLS/HR; Start 11/16/16 at 22:00 Metoclopramide HCl (Reglan) 5 mg Q6H PRN IV NAUSEA Last administered on 01:03; Admin Dose 5 MG; Start 11/17/16 at 07:30 Heparin Sodium (Porcine) (Heparin (5000 Units/0.5 ml)) 5,000 unit BID SC Last administered on 11/18/16 10:50; Admin Dose 5,000 UNIT; Start 11/17/16 at 21:00 Pantoprazole (Protonix Tab) 40 mg DAILY@06 PO Last administered on 11/18/16 05 :20; Admin Dose 40 MG; Start 11/18/16 at 06:00 Sucralfate (Carafate Susp) 1 gm QID PO Last administered on 11/18/16 09:49; Admin Dose 1 GM; Start 11/17/16 at 21:00 DOMINGO HAN Nov 18, 2016 14:17
[2016-11-18] MEDS ORDERED: DIPHENHYDRAMINE 50 MG INJ IV ONE (16:00)
[2016-11-18] MEDS: FAMOTIDINE 20 MG INJ IV SCH ×2 (17:30→21:53)
--- NOTE | 2016-11-18 18:23 | GILP ---
DATE OF PROCEDURE: NAME OF PROCEDURE: Esophagogastroduodenoscopy with biopsies. SURGEON: Patricia Jaime MD. BRIEF HISTORY AND INDICATIONS: The patient is being evaluated for severe epigastric abdominal pain requiring frequent narcotics. The patient is post-bariatric surgery. PREMEDICATION: Monitored anesthesia care by anesthesiologist. INSTRUMENT USED: Olympus panendoscope. TECHNIQUE: After informed consent, with the patient/relatives understanding the procedure, its indic ations, potential risks, and complications, including but not limited to: allergic reaction, bleedin g, perforation or infection, and after all pertinent questions were answered to the patient's satisf action. The patient/relatives signed witnessed informed consent. Following this, premedication was administered slowly IV push under careful cardiovascular and respi ratory monitoring with pulse oximetry, automatic blood pressure and monitoring analyst. Once the sedative effect was achieved the patient was place in the left lateral decubitus, the panen doscope was introduced and advanced under visual control. Careful examination of the upper gastrointestinal tract, both on insertion as well as withdrawal of the instrument disclosed the following findings: ESOPHAGUS: The distal esophagus shows erythema and edema of the mucosa of a moderate degree. STOMACH: Upon entrance to the stomach, air was insufflated. It is evident the patient had a distal gastrectomy with what appears to be a gastrojejunostomy representing a Lotus-en-Y anastomosis. The anastomosis is patent and covered with normal appearing mucosa of the enteric side of the anastomosi s unremarkable. The gastric side shows mild erythema. Biopsies were obtained to rule out H. pylori infection. PYLORUS: The pylorus appears patent and within normal limits, with no evidence of gastric outlet ob struction. DUODENUM: The duodenal mucosa was carefully examined in the duodenal bulb as well as the second por tion of the duodenum and appears unremarkable with no evidence of duodenitis, ulcer, or neoplasm. The instrument was then withdrawn, the patient tolerated the procedure well and was transfer out of the endoscopy suite awake, and in good condition to continue recovery under observation IMPRESSION: 1. Mild distal esophagitis. 2. Post-bariatric surgery with small gastric pouch. 3. Gastritis, biopsies obtained to rule out Helicobacter pylori infection. 4. A Lotus-en-Y anastomosis is clean and normal mucosa. PLAN: We will continue PPIs. Add Carafate liquid. Further recommendations will depend on the megan ent's clinical course. Dictated By: PATRICIA JAIME MS/NTS Conf#: [id number] DID#: [id number] CC: PATRICIA JAIME; NEYMAR HERMAN;*End*
[2016-11-18 19:50] VITALS: BP 158/90; RESP 20
[2016-11-18] MEDS ORDERED: ALPR1TAB2 PO (22:45)
[2016-11-18] MEDS ORDERED: ESCI20TA PO (22:45)
[2016-11-18] MEDS ORDERED: ESCITALOPRAM 10 MG TAB PO SCH (23:00)
[2016-11-18] MEDS ORDERED: ALPRAZOLAM 1 MG TAB PO PRN (23:00)
[2016-11-18] MEDS ORDERED: DIPHENHYDRAMINE 50 MG CAP PO SCH (23:00)
[2016-11-19] MEDS: ONDANSETRON 4 MG INJ IV PRN (02:32)
[2016-11-19] MEDS: PANTOPRAZOLE (EC) 40 MG TAB PO SCH (05:35)
[2016-11-19] MEDS: metroNIDAZOLE 500 MG/NS (PMX) 100 ML IVPB SCH (05:35)
[2016-11-19 06:01] LABS: POTASSIUM 3.5 mmol/L (3.5-5.1)
[2016-11-19 06:04] LABS: BASOPHIL # 0.1 10^3/ul (0.0-0.1); BASOPHILS % 0.4 % (0.0-2.0); CREATININE 0.5 mg/dl (0.44-1.00); EOSINOPHILS # 0.1 10^3/ul (0.0-0.5); EOSINOPHILS % 0.5 % (0.0-7.0); HEMATOCRIT 38.8 % (37.0-47.0); HEMOGLOBIN 12.9 g/dl (12.0-16.0); LYMPHOCYTES % 15.9 % (15.0-51.0); MEAN CORPUSCULAR HEMOGLOBIN 26.4 pg (29.0-33.0); MEAN CORPUSCULAR HGB CONC 33.3 g/dl (32.0-37.0); MEAN CORPUSCULAR VOLUME 79.1 fl (82.0-101.0); MEAN PLATELET VOLUME 7.8 fl (7.4-10.4); MONOCYTES % 8.1 % (0.0-11.0); NEUTROPHIL # 9.6 10^3/ul (1.6-7.5); NEUTROPHILS % 75.1 % (39.0-77.0); PLATELET COUNT 395 10^3/UL (140-440); UNCORRECTED WBC 12.8 10^3/ul (4.8-10.8); WHITE BLOOD COUNT 12.8 10^3/ul (4.8-10.8)
[2016-11-19 06:05] LABS: CALCIUM 8.7 mg/dl (8.4-10.2)
[2016-11-19 06:09] LABS: CONDITION 1; LH ANALYZER COMMENTS 1
[2016-11-19 07:52] VITALS: BP 138/90; RESP 16
[2016-11-19] MEDS: SUCRALFATE (100 MG/ML) 10ML CUP PO SCH (08:23)
[2016-11-19] MEDS: CIPROFLOXACIN 400MG/D5W 200 ML IVPB SCH (08:23)
[2016-11-19] MEDS: FAMOTIDINE 20 MG INJ IV SCH (08:23)
[2016-11-19] MEDS: HEPARIN 5,000 UNIT/0.5 ML SYG SC SCH (08:29)
[2016-11-19] MEDS: SOD CHLORIDE 0.9% 1,000 ML IV SCH (10:19)
[2016-11-19] MEDS ORDERED: PANT40TA4 PO (11:12)
[2016-11-19] MEDS ORDERED: CARAS PO (11:12)
--- NOTE | 2016-11-19 11:18 | DS ---
Date/Time of Note Date/Time of Note DATE: 11/19/16 TIME: 11:06 Discharge Summary Admission/Discharge Info Admit Date/Time Nov 16, 2016 at 15:11 Discharge Date/Time Final Diagnosis 1. Diffuse abdominal pain. s/p EGD 11/17/2016 revealed distal esophagitis, follow up with Dr. Jaime. 2. Suspect opioid abuse.follow up with PCP 3. History of major depression. We'll continue patient's antidepressants. No reports of suicidal ideation at this time. 4. Leukocytosis. on cipro 5. Diverticulosis without evidence of diverticulitis per CT scan of the abdomen on 11/14/2016. Patient was impaired be started on Cipro and Flagyl. We'll continue for now. We'll follow-up on garcia cultures. Patient Condition: Stable Procedures G.I. LAB PROCEDURE DATE OF PROCEDURE: NAME OF PROCEDURE: Esophagogastroduodenoscopy with biopsies. SURGEON: Patricia Jaime MD. BRIEF HISTORY AND INDICATIONS: The patient is being evaluated for severe epigastric abdominal pain requiring frequent narcotics. The patient is post- bariatric surgery. PREMEDICATION: Monitored anesthesia care by anesthesiologist. INSTRUMENT USED: Olympus panendoscope. TECHNIQUE: After informed consent, with the patient/relatives understanding the procedure, its indications, potential risks, and complications, including but not limited to: allergic reaction, bleeding, perforation or infection, and after all pertinent questions were answered to the patient's satisfaction. The patient/relatives signed witnessed informed consent. Following this, premedication was administered slowly IV push under careful cardiovascular and respiratory monitoring with pulse oximetry, automatic blood pressure and sider. Once the sedative effect was achieved the patient was place in the left lateral decubitus, the panendoscope was introduced and advanced under visual control. Careful examination of the upper gastrointestinal tract, both on insertion as well as withdrawal of the instrument disclosed the following findings: ESOPHAGUS: The distal esophagus shows erythema and edema of the mucosa of a moderate degree. STOMACH: Upon entrance to the stomach, air was insufflated. It is evident the patient had a distal gastrectomy with what appears to be a gastrojejunostomy representing a Lotus-en-Y anastomosis. The anastomosis is patent and covered with normal appearing mucosa of the enteric side of the anastomosis unremarkable. The gastric side shows mild erythema. Biopsies were obtained to rule out H. pylori infection. PYLORUS: The pylorus appears patent and within normal limits, with no evidence of gastric outlet obstruction. DUODENUM: The duodenal mucosa was carefully examined in the duodenal bulb as well as the second portion of the duodenum and appears unremarkable with no evidence of duodenitis, ulcer, or neoplasm. The instrument was then withdrawn, the patient tolerated the procedure well and was transfer out of the endoscopy suite awake, and in good condition to continue recovery under observation IMPRESSION: 1. Mild distal esophagitis. 2. Post-bariatric surgery with small gastric pouch. 3. Gastritis, biopsies obtained to rule out Helicobacter pylori infection. 4. A Lotus-en-Y anastomosis is clean and normal mucosa. PLAN: We will continue PPIs. Add Carafate liquid. Further recommendations will depend on the patient's clinical course. Dictated By: PATRICIA JAIME MS/NTS Conf#: [id number] DID#: [id number] CC: PATRICIA JAIME; NEYMAR HERMAN;*EndCC* Hx of Present Illness This is a 31-year-old female with past medical history of gastric bypass and cholecystectomy as well as anxiety and major depression, with also reports of chronic abdominal pain who came to [facility] after reports of having abdominal pain for several days. She did report that the pain initially started in her lower abdominal area and then started to radiate up to her upper abdomen. She did report having some nausea and vomiting associated with this issue not bloody by greenish in appearance. Patient was initially had [facility] on 11/14/2016 for this issue for which she did have CT scan of the abdomen that did show diverticulosis but no evidence of diverticulitis. She also did have pelvic ultrasound done that did show echogenic IUD in the endometrial canal. It also did show trace free fluid in the cervical canal but likely related to menses. Is also showed a 3.17 m simple cyst on left ovary and 2.9 cm simple cyst on the right ovary. Patient was also seen with a white count of 15.5 but remained afebrile. She did report having subjective chills while she was at home. Her most recent abdominal x-ray done on 11/16/2016 did show no evidence of obstruction or free air. Patient denies ever having had colonoscopy or EGD. She has not seen a orthodontic technician assistant. Of note, we also did discuss with the patient's who did report that sometime ago after patient's gastric bypass procedure she did developed somewhat of an opiate tolerance. Patient was seen in the bed shaking her hands in the air requesting for Dilaudid pain medication. We will monitor for the aforementioned issues Hospital Course Work up for abdominal pain with EGD that revealed only distal esophagitis. Patient is on protonix and carafate for it. The abdominal pain is more likely psychogenic and pain medication dependence. Patient will follow up with PCP and Dr. Jaime outpatient. Home Meds Active Scripts Diphenhydramine Hcl* (Diphenhydramine Hcl*) 25 Mg Capsule, 25 MG PO Q6 Y for ITCHING, #20 CAP Prov:KATHERINE GILL PA-C 11/14/16 Ibuprofen* (Motrin*) 600 Mg Tab, 600 MG PO Q6H Y for PAIN AND OR ELEVATED TEMP, #20 TAB Prov:KATHERINE GILL PA-C 11/14/16 Ondansetron (Ondansetron Odt) 4 Mg Tab.rapdis, 4 MG PO Q6H Y for NAUSEA AND/OR VOMITING, #12 TAB Prov:KATHERINE GILL PA-C 11/14/16 Reported Medications Alprazolam* (Xanax*) 1 Mg Tab, 1 MG PO BID Y for PRN, TAB 11/18/16 Escitalopram Oxalate* (Lexapro*) 20 Mg Tablet, 20 MG PO QHS, #30 TAB 11/18/16 Follow-up Plan PCP [address] Jaime 1 week Pending Labs Laboratory Tests Test 11/19/16 05:04 Anion Gap 18 (8-16) Basophils # 0.110^3/ul (0.0-0.1) Basophils % 0.4% (0.0-2.0) Blood Morphology Comment Blood Urea Nitrogen 7mg/dl (7-20) Calcium Level 8.7mg/dl (8.4-10.2) Carbon Dioxide Level 26mmol/L (21-31) Chloride Level 99mmol/L (97-110) Creatinine 0.50mg/dl (0.44-1.00) Eosinophils # 0.110^3/ul (0.0-0.5) Eosinophils % 0.5% (0.0-7.0) Glucose Level 99mg/dl (70-220) Hematocrit 38.8% (37.0-47.0) Hemoglobin 12.9g/dl (12.0-16.0) Lymphocytes # 2.010^3/ul (0.8-2.9) Lymphocytes % 15.9% (15.0-51.0) Mean Corpuscular Hemoglobin 26.4pg (29.0-33.0) Mean Corpuscular Hemoglobin Concent 33.3g/dl (32.0-37.0) Mean Corpuscular Volume 79.1fl (82.0-101.0) Mean Platelet Volume 7.8fl (7.4-10.4) Monocytes # 1.010^3/ul (0.3-0.9) Monocytes % 8.1% (0.0-11.0) Neutrophils # 9.610^3/ul (1.6-7.5) Neutrophils % 75.1% (39.0-77.0) Nucleated Red Blood Cells # 0.010^3/ul (0.0-0.0) Nucleated Red Blood Cells % 0.0/100WBC (0.0-0.0) Platelet Count 27443^3/UL (140-440) Potassium Level 3.5mmol/L (3.5-5.1) Red Blood Count 4.9010^6/ul (4.20-5.40) Red Cell Distribution Width 15.0% (11.5-14.5) Sodium Level 139mmol/L (135-144) White Blood Count 12.810^3/ul (4.8-10.8) RYANN BUTLER MD Nov 19, 2016 11:16
[2016-11-19] MEDS ORDERED: DIPHENHYDRAMINE 25 MG CAP PO ONE (13:00)
== END 2016-11-19 13:40 | disposition home or self-care (01) | DRG 392 ==
LOC: E/R 12:48 → MS2 15:11
PROVIDERS: ADMIT Hospitalist; ATTEND Hospitalist
PROC: 0DB68ZX Excision of Stomach, Via Natural or Artificial Opening Endoscopic, Diagnostic (ICD-10-PCS; principal; 2016-11-17 20:00)
DX: K20.9 Esophagitis, unspecified (principal); Z68.42 Body mass index [BMI] 45.0-49.9, adult; Z98.84 Bariatric surgery status; F32.9 Major depressive disorder, single episode, unspecified; K57.90 Diverticulosis of intestine, part unspecified, without perforation or abscess without bleeding; F41.9 Anxiety disorder, unspecified; Z90.49 Acquired absence of other specified parts of digestive tract; E66.9 Obesity, unspecified; Z88.5 Allergy status to narcotic agent; Z88.8 Allergy status to other drugs, medicaments and biological substances; F11.10 Opioid abuse, uncomplicated; D72.829 Elevated white blood cell count, unspecified
CPT/HCPCS: 74010; 74177; 80048; 80053; 80061; 80076; 83605; 83690; 83735; 84100; 84443; 84702; 85025; 87086; 88305; 88312; 90686; J0744; J1170; J1200; J2060; J2270; J2405; J2765; J3010; J7030; Q9967

== ENCOUNTER 2016-11-22 16:21 | Emergency (ER) | payer SELFPAY ==
[~2016-11-22] VITALS: Ht 157.5 cm; Wt 89.1 kg
[~2016-11-22 16:21] MED LIST changes: +ALPR1TAB2 PO; +CARAS PO; +ESCI20TA PO; +PANT40TA4 PO
[2016-11-22 16:27] VITALS: Ht 157.5 cm; Wt 89.1 kg
== END 2016-11-23 10:37 | disposition left against medical advice (07) ==
LOC: FTE 16:21
DX: Z53.21 Procedure and treatment not carried out due to patient leaving prior to being seen by health care provider (principal)

== ENCOUNTER 2017-02-02 14:29 | Emergency (ER) | payer OTHER ==
[~2017-02-02] VITALS: Ht 162.6 cm; Wt 86.5 kg
[2017-02-02 14:34] VITALS: Ht 162.6 cm; Wt 86.5 kg
[2017-02-02] MEDS ORDERED: ONDANSETRON 4 MG INJ IV STA (15:31)
[2017-02-02] MEDS ORDERED: DICLOFENAC SODIUM 37.5 MG/ML VIAL IV STA (15:35)
--- NOTE | 2017-02-02 15:47 | ERD ---
ER Documentation Chief Complaint Date/Time DATE: 02/02/17 TIME: 15:40 Chief Complaint ap and n/v x 6 days HPI 31-year-old female complaining of gum pain 1 week. Patient stated she had a canker sore. Patient also complaining of abdominal pain 1 day. She had history of gastric bypass 4 years ago, states that she is unable to maintain any solid food intake since then. This morning, she tried to eat toast and oatmeal. She developed abdominal pain and vomiting immediately after. She had 4-6 episodes of vomiting today. Patient stated that she has vomited daily for the last 4 years. Her vomitus is frothy and light green color. Patient stated that she has appointment with PCP tomorrow, but. Her PCP want her to come here today to get better. Denies fever or chills. Denies diarrhea. Her last bowel movement was this morning. ROS All systems reviewed and are negative except as per history of present illness. Medications Home Meds Active Scripts Ondansetron (Ondansetron Odt) 4 Mg Tab.rapdis, 4 MG PO Q6H Y for NAUSEA AND/OR VOMITING, #10 TAB Prov:JAY STATON. PARUL 02/02/17 Acetaminophen* (Tylenol*) 160 Mg/5 Ml Soln, 10 ML PO Q6H Y for PAIN AND OR ELEVATED TEMP, #8 OZ Prov:JAY STATON NP 02/02/17 Sucralfate* (Carafate*) 1 Gm/10 Ml Susp, 1 GM PO QID for 14 Days Prov:RYANN BUTLER MD 11/19/16 Pantoprazole* (Pantoprazole*) 40 Mg Tablet.dr, 40 MG PO DAILY@06 for 30 Days Prov:RYANN BUTLER MD 11/19/16 Diphenhydramine Hcl* (Diphenhydramine Hcl*) 25 Mg Capsule, 25 MG PO Q6 Y for ITCHING, #20 CAP Prov:KATHERINE GILL PA-C 11/14/16 Ibuprofen* (Motrin*) 600 Mg Tab, 600 MG PO Q6H Y for PAIN AND OR ELEVATED TEMP, #20 TAB Prov:KATHERINE GILL PA-C 11/14/16 Ondansetron (Ondansetron Odt) 4 Mg Tab.rapdis, 4 MG PO Q6H Y for NAUSEA AND/OR VOMITING, #12 TAB Prov:KATHERINE GILL PA-C 11/14/16 Reported Medications Alprazolam* (Xanax*) 1 Mg Tab, 1 MG PO BID Y for PRN, TAB 11/18/16 Escitalopram Oxalate* (Lexapro*) 20 Mg Tablet, 20 MG PO QHS, #30 TAB 11/18/16 Allergies Allergies: Coded Allergies: ibuprofen (Verified Allergy, Unknown, 11/16/16) tramadol (Verified Allergy, Unknown, 11/16/16) PMhx/Soc History of Surgery: Yes (Gastric bypass,LapColi) Anesthesia Reaction: No Hx Neurological Disorder: No Hx Respiratory Disorders: No Hx Cardiac Disorders: No Hx Psychiatric Problems: Yes (depression) Hx Miscellaneous Medical Probl: No Hx Alcohol Use: No Hx Substance Use: No Hx Tobacco Use: No Smoking Status: Never smoker Physical Exam Vitals Vital Signs Date Time Temp Pulse Resp B/P Pulse Ox O2 Delivery O2 Flow Rate FiO2 02/02/17 14:34 98.3 102 18 132/95 97 Physical Exam General impression: Well-developed, well-nourished. Alert, oriented, in no acute distress Head: Normocephalic, atraumatic. Eyes: PERRL, EOM normal. Sclerae are normal. Conjunctiva not injected. ENT: Oral mucosa moist, normal appearance. No aphthous ulcers noted. Neck: Supple, nontender. No lymphadenopathy. No nuchal rigidity. Respiration: Normal respiratory effort. Lungs clear to auscultate bilaterally. No wheezes, rales or rhonchi. Cardiovascular: Regular rate and rhythm. No murmurs or extra heart sounds. Abdomen: Abdomen normal to inspection. Nontender. No masses or organomegaly. Bowel sounds normal. Back: Normal to inspection. No midline spine tenderness. No CVA tenderness. Extremities: Extremities normal to inspection, nontender. ROM normal. Neuro: Mental status normal, speech normal. EDITOR GREETING CARD grossly intact. Skin: Normal turgor. No rash or lesions. Psych: Normal mood and affect. Result Diagram: 02/02/17 1555 02/02/17 1555 Results 24 hrs Laboratory Tests Test 02/02/17 15:55 02/02/17 16:45 White Blood Count 13.910^3/ul Red Blood Count 4.8510^6/ul Hemoglobin 12.4g/dl Hematocrit 41.3% Mean Corpuscular Volume 85.2fl Mean Corpuscular Hemoglobin 25.6pg Mean Corpuscular Hemoglobin Concent 30.0g/dl Red Cell Distribution Width 13.8% Platelet Count 66644^3/UL Mean Platelet Volume 9.2fl Neutrophils % 77.1% Lymphocytes % 13.2% Monocytes % 6.0% Eosinophils % 2.4% Basophils % 0.7% Nucleated Red Blood Cells % 0.0/100WBC Neutrophils # 10.710^3/ul Lymphocytes # 1.810^3/ul Monocytes # 0.810^3/ul Eosinophils # 0.310^3/ul Basophils # 0.110^3/ul Nucleated Red Blood Cells # 0.010^3/ul Sodium Level 140mmol/L Potassium Level 4.6mmol/L Chloride Level 105mmol/L Carbon Dioxide Level 25mmol/L Anion Gap 15 Blood Urea Nitrogen 12mg/dl Creatinine 0.57mg/dl Glucose Level 96mg/dl Calcium Level 8.9mg/dl Total Bilirubin 0.8mg/dl Direct Bilirubin 0.00mg/dl Indirect Bilirubin 0.8mg/dl Aspartate Amino Transf (AST/SGOT) 32IU/L Alanine Aminotransferase (ALT/SGPT) 20IU/L Alkaline Phosphatase 88IU/L Total Protein 7.2g/dl Albumin 3.8g/dl Globulin 3.40g/dl Albumin/Globulin Ratio 1.11 Lipase 117U/L Urine Color YELLOW Urine Clarity CLEAR Urine pH 6.0 Urine Specific Romayor 1.025 Urine Ketones NEGATIVE Urine Nitrite NEGATIVE Urine Bilirubin NEGATIVE Urine Urobilinogen 0.2 E.U./dL Urine Leukocyte Esterase NEGATIVE Urine Hemoglobin NEGATIVE Urine Glucose NEGATIVE% Urine Total Protein NEGATIVE Current Medications Medications (Trade) Dose Ordered Sig/Hi Route PRN Reason Start Time Stop Time Status Last Admin Dose Admin Ondansetron HCl 4 mg 4 mg ONCE STAT IV 02/02/17 15:31 02/02/17 15:35 DC 02/02/17 16:01 Sodium Chloride (NS) 1,000 ml @ 1,000 mls/hr Q1H ONCE IV 02/02/17 16:00 02/02/17 16:59 DC 02/02/17 15:59 Acetaminophen (Tylenol Liquid) 320 mg ONCE ONCE PO 02/02/17 16:00 02/02/17 16:01 DC 02/02/17 16:02 Diphenhydramine HCl (Benadryl Liquid Cup) 25 mg ONCE ONCE PO 02/02/17 16:00 02/02/17 16:01 DC 02/02/17 16:01 Lidocaine (Xylocaine (Viscous)) 10 ml ONCE ONCE PO 02/02/17 16:00 02/02/17 16:01 DC 02/02/17 16:02 Diclofenac Sodium (Dyloject) 37.5 mg ONCE STAT IV 02/02/17 15:35 02/02/17 15:37 DC 02/02/17 16:01 Procedures/MDM 31-year-old female presented to ED with abdominal pain and vomiting. Patient has history of gastric bypass, which raises concern for possible bowel obstruction. CBC, CMP, and lipase, UA, and CT abdomen pelvis without IV contrast was obtained. No acute processes or obstruction is seen CT. Mildly elevated WBC at 13.9 as noted on CBC, blood work is otherwise unremarkable. No sign of a urinary tract infection. Patient also complaining of canker sore in her mouth. Exam revealed no aphthous ulcer. No sign of gingival disease or other inflammatory processes in the oral mucosa. Cottonball soaked was cocktail of liquid Tylenol, Benadryl , and viscous lidocaine is applied to patient's, topically to ease her oral pain. Patient also given Dallergy IV. Patient was resting comfortably after the medication administration. Patient gave conflicting stories on providing history. She is requesting narcotic pain medications at discharge. Review of [facility] database shows the patient has multiple hydrocodone prescriptions from multiple providers. I advised patient that I will not be able to prescribe her with any narcotics. I will however give her a prescription of Tylenol. Patient then requests for Benadryl to be given to her in the ED, stating that she is feeling itching after the medication. No sign of allergic urticaria or angioedema is noted. Her lungs are clear, no sign of anaphylaxis. I told her that I would not be giving her Benadryl because it does not appear to be necessary. Patient's behavior is suspicious for drug-seeking. Patient appears well, stable for discharge and outpatient management. Medical decision making shared with patient and family. Education provided to patient and family. Patient and family expressed understanding of the plan. Medications on discharge: Tylenol. Follow-up: Primary care provider in 2-3 days or return to ED if worse. The case was reviewed and discussed with Dr. Ortega, who agrees with the plan of care including labs, treatment, and advanced imaging as appropriate. JAY STATON NP Feb 02, 2017 15:47
[2017-02-02] MEDS ORDERED: SOD CHLORIDE 0.9% 1,000 ML IV ONE (16:00)
[2017-02-02] MEDS ORDERED: DIPHENHYDRAMINE 2.5 MG/ML 5ML CUP PO ONE (16:00)
[2017-02-02] MEDS ORDERED: ACETAMINOPHEN 160 MG/5ML CUP PO ONE (16:00)
[2017-02-02] MEDS ORDERED: LIDOCAINE 2% VISC 15 ML CUP PO ONE (16:00)
[2017-02-02 16:08] LABS: ADD SCAN DIFF NO
[2017-02-02 16:11] LABS: BASOPHIL # 0.1 10^3/ul (0.0-0.1); BASOPHILS % 0.7 % (0.0-2.0); EOSINOPHILS # 0.3 10^3/ul (0.0-0.5); EOSINOPHILS % 2.4 % (0.0-7.0); HEMATOCRIT 41.3 % (37.0-47.0); HEMOGLOBIN 12.4 g/dl (12.0-16.0); LYMPHOCYTES # 1.8 10^3/ul (0.8-2.9); LYMPHOCYTES % 13.2 % (15.0-51.0); MEAN CORPUSCULAR HEMOGLOBIN 25.6 pg (29.0-33.0); MEAN CORPUSCULAR VOLUME 85.2 fl (82.0-101.0); MEAN PLATELET VOLUME 9.2 fl (7.4-10.4); MONOCYTE # 0.8 10^3/ul (0.3-0.9); NEUTROPHIL # 10.7 10^3/ul (1.6-7.5); NEUTROPHILS % 77.1 % (39.0-77.0); PLATELET COUNT 408 10^3/UL (140-415); RED BLOOD COUNT 4.85 10^6/ul (4.20-5.40); RED CELL DISTRIBUTION WIDTH 13.8 % (11.5-14.5); WHITE BLOOD COUNT 13.9 10^3/ul (4.8-10.8)
[2017-02-02 16:19] LABS: ALBUMIN 3.8 g/dl (3.3-4.9)
[2017-02-02 16:20] LABS: POTASSIUM 4.6 mmol/L (3.5-5.1)
[2017-02-02 16:22] LABS: ALBUMIN/GLOBULIN RATIO 1.11; BILIRUBIN,INDIRECT 0.8 mg/dl (0-1.1); BILIRUBIN,TOTAL 0.8 mg/dl (0.2-1.3); CREATININE 0.57 mg/dl (0.44-1.00); TOTAL PROTEIN 7.2 g/dl (6.1-8.1)
[2017-02-02 16:23] LABS: CALCIUM 8.9 mg/dl (8.4-10.2)
[2017-02-02 17:19] LABS: ADD UMIC NO; URINE BILIRUBIN (Dip) NEGATIVE (NEGATIVE); URINE BLOOD (Dip) NEGATIVE (NEGATIVE); URINE COLOR YELLOW (YELLOW); URINE GLUCOSE (Dip) NEGATIVE (NEGATIVE); URINE KETONES (Dip) NEGATIVE (NEGATIVE); URINE LEUKOCYTE ESTERASE (Dip) NEGATIVE (NEGATIVE); URINE NITRITE (Dip) NEGATIVE (NEGATIVE); URINE TOTAL PROTEIN (Dip) NEGATIVE (NEGATIVE); URINE UROBILINOGEN (Dip) 0.2 E.U./dL (0.1-1.0)
--- NOTE | 2017-02-02 17:46 | RADRPT ---
PROCEDURE: CT Abdomen and Pelvis without contrast. CLINICAL INDICATION: Abdominal pain TECHNIQUE: CT scan of the abdomen and pelvis without contrast was performed on a multi-slice CT sc esmer without intravenous contrast. Coronal and sagittal reformatted images were obtained from the axial source images. Images were reviewed on a high-resolution PACS workstation. One or more of the following does reduction techniques were used: Automated exposure control; adjustment of the mA an d/or kV according to patient size; use of the aorta of reconstruction technique. The total exam CTD I equals 17.48 mGy and the total exam DLP equals 1033.6 mGy-cm. COMPARISON: CT abdomen pelvis 11/16/2016 FINDINGS: Evaluation of the lung bases is limited due to breathing artifact. There is mild bibasilar atelecta sis. There is a calcified granuloma in the right infrahilar region consistent with old granulomatou s disease. Heart size is normal, and there is no evidence of pericardial thickening or effusion. T here is evidence of prior gastric bypass surgery. The biliary limb is mildly distended, though stab le in appearance when compared to 11/16/2016. There is no evidence of obstruction. The liver, spleen, and pancreas are normal given limitations of a noncontrast CT examination. The g allbladder is surgically absent. The adrenal glands are normal. The kidneys without renal calculus or hydronephrosis. The aorta is of normal caliber. There is no retroperitoneal lymph node enlargment. There is no evidence of large or small bowel obstruction. There is scattered colonic diverticula. There is no CT evidence of diverticulitis. There is mild retained colonic stool. A normal appendix is identified. No free fluid or fluid collections are identified. No inflammatory changes are se en. The uterus is present. An intrauterine contraceptive device is in place. No enlarged pelvic sidewal l lymph nodes are seen. The bladder is within normal limits. No free fluid is identified. The ing uinal regions are unremarkable. Note is made of unilateral L5 spondylolysis on the left. There is no spondylolisthesis. There are mild degenerative change of the spine. IMPRESSION: 1. No CT evidence of mass, lymphadenopathy, or inflammatory process. 2. Status post gastric bypass. The biliary limb is mildly distended, though stable compared to 06/2017. This is likely within normal limits for this patient. 3. Small annulus disease. 4. Status post cholecystectomy. 5. Diverticulosis without evidence of diverticulitis. 6. Unilateral L5 spondylolysis on the left. Mild degenerative change of the spine. RPTAT: HJBF .Gaurav Shaw MD, Date Time Electronically viewed and signed by .Gaurav Shaw MD, on 02/02/2017 17:46 .B/
[2017-02-02] MEDS ORDERED: UDTYL PO (17:53)
[2017-02-02] MEDS ORDERED: ONDA4TAB14 PO (17:53)
== END 2017-02-02 18:10 | disposition home or self-care (01) ==
LOC: FTE 14:29
DX: R10.9 Unspecified abdominal pain (principal); K08.89 Other specified disorders of teeth and supporting structures; R11.2 Nausea with vomiting, unspecified
CPT/HCPCS: 74176; 80053; 81003; 83690; 85025; J2405; J7030; Z7610; 36415; 96374; 96375

== ENCOUNTER 2017-02-23 22:50 | Emergency (ER) | payer SELFPAY ==
[~2017-02-23] VITALS: Ht 162.6 cm; Wt 89.0 kg
[~2017-02-23 22:50] MED LIST changes: +UDTYL PO
[2017-02-24 00:36] VITALS: Ht 162.6 cm; Wt 89.0 kg
== END 2017-02-24 01:00 | disposition left against medical advice (07) ==
LOC: FTE 22:50
DX: Z53.21 Procedure and treatment not carried out due to patient leaving prior to being seen by health care provider (principal)

== ENCOUNTER 2017-03-15 08:38 | Emergency (ER) | payer OTHER ==
[~2017-03-15] VITALS: Ht 165.1 cm; Wt 86.4 kg
[2017-03-15 08:42] VITALS: Ht 165.1 cm; Wt 86.4 kg
--- NOTE | 2017-03-15 09:10 | ERD ---
ER Documentation Chief Complaint Date/Time DATE: 03/15/17 TIME: 09:10 Chief Complaint ap x toady (n/v) HPI 31-year-old female with history of chronic abdominal pain, anxiety, depression, , esophagitis, ovarian cysts, gastric bypass and cholecystectomy with well documented h/o opioid dependence presents to the ED via RA c/o a one day h/o severe generalized, crampy, non-radiating abdominal pain with nausea and vomiting but no diarrhea or constipations. No hematemesis, hematochezia or melanotic stools. She state she has been shaking for the last few hours and feels very anxious. Denies chest pain, palpitations or shortness of breath. No dysuria or polyuria, no fevers or chills. ROS All systems reviewed and are negative except as per history of present illness. Medications Home Meds Active Scripts Diphenhydramine Hcl* (Benadryl*) 50 Mg Cap, 50 MG PO Q6 Y for ANXIETY, #15 CAP Prov:MARILU REIS MANAGER LOCAL 03/17/17 Reported Medications Calcium Carbonate/Vitamin D3 (Calcium 500+D Tablet Chew) 1 Each Tab.chew, 1 EACH PO BID, TAB.CHEW 03/15/17 Quetiapine Fumarate* (Seroquel*) 25 Mg Tablet, 25 MG PO HS, #30 TAB 03/15/17 Lamotrigine* (Lamotrigine* CHEW) 25 Mg Tab.disper, 50 MG PO QHS, TAB 03/15/17 Lurasidone Hcl (LATUDA) 20 Mg Tablet, 20 MG PO QHS, #30 TAB 03/15/17 Alprazolam* (Xanax*) 2 Mg Tablet, 2 MG PO BID Y for ANXIETY, TAB 03/15/17 Discontinued Reported Medications Alprazolam* (Xanax*) 1 Mg Tab, 1 MG PO BID Y for PRN, TAB 11/18/16 Escitalopram Oxalate* (Lexapro*) 20 Mg Tablet, 20 MG PO QHS, #30 TAB 11/18/16 Discontinued Scripts Ondansetron (Ondansetron Odt) 4 Mg Tab.rapdis, 4 MG PO Q6H Y for NAUSEA AND/OR VOMITING, #10 TAB Prov:JAY STATON MANAGER LOCAL 02/02/17 Acetaminophen* (Tylenol*) 160 Mg/5 Ml Soln, 10 ML PO Q6H Y for PAIN AND OR ELEVATED TEMP, #8 OZ Prov:JAY STATON NP 02/02/17 Sucralfate* (Carafate*) 1 Gm/10 Ml Susp, 1 GM PO QID for 14 Days Prov:RYANN BUTLER MD 11/19/16 Pantoprazole* (Pantoprazole*) 40 Mg Tablet.dr, 40 MG PO DAILY@06 for 30 Days Prov:RYANN BUTLER MD 11/19/16 Diphenhydramine Hcl* (Diphenhydramine Hcl*) 25 Mg Capsule, 25 MG PO Q6 Y for ITCHING, #20 CAP Prov:KATHERINE GILL PA-C 11/14/16 Ibuprofen* (Motrin*) 600 Mg Tab, 600 MG PO Q6H Y for PAIN AND OR ELEVATED TEMP, #20 TAB Prov:KATHERINE GILL PA-C 11/14/16 Ondansetron (Ondansetron Odt) 4 Mg Tab.rapdis, 4 MG PO Q6H Y for NAUSEA AND/OR VOMITING, #12 TAB Prov:KATHERINE GILL PA-C 11/14/16 Allergies Allergies: Coded Allergies: ibuprofen (Verified Allergy, Unknown, 03/15/17) tramadol (Verified Allergy, Unknown, 03/15/17) PMhx/Soc Reviewed in chart. As per HPI. History of Surgery: Yes (Gastric bypass,LapColi) Anesthesia Reaction: No Hx Neurological Disorder: No Hx Respiratory Disorders: No Hx Cardiac Disorders: No Hx Psychiatric Problems: Yes (depression) Hx Miscellaneous Medical Probl: No Hx Alcohol Use: No Hx Substance Use: No Hx Tobacco Use: No Smoking Status: Never smoker FmHx No stroke or cancer. Physical Exam Vitals Vital Signs Date Time Temp Pulse Resp B/P Pulse Ox O2 Delivery O2 Flow Rate FiO2 03/15/17 13:55 97.9 65 18 154/93 100 Room Air 03/15/17 11:57 96.4 80 18 131/93 100 Room Air 03/15/17 08:42 98.0 86 18 146/88 99 Physical Exam Const: Alert, crying, tremulous, anxious Head: Atraumatic Eyes: Normal Conjunctiva ENT: Normal External Ears, Nose and Mouth. Neck: Full range of motion. Nontender Resp: Clear to auscultation bilaterally Cardio: Regular rate and rhythm, no murmurs Abd: Soft, mild generalized tenderness, non distended. Normal bowel sounds. No masses. No rebound or guarding. Skin: No petechiae or rashes Back: No midline or flank tenderness Ext: No cyanosis, or edema Neur: Awake and alert Psych: Anxious, crying. Result Diagram: 03/15/1791903/15/17919 Results 24 hrs Laboratory Tests Test 03/15/17 09:20 03/15/17 12:30 White Blood Count 10.710^3/ul Red Blood Count 4.7610^6/ul Hemoglobin 11.9g/dl Hematocrit 37.9% Mean Corpuscular Volume 79.6fl Mean Corpuscular Hemoglobin 25.0pg Mean Corpuscular Hemoglobin Concent 31.4g/dl Red Cell Distribution Width 14.4% Platelet Count 15204^3/UL Mean Platelet Volume 9.1fl Neutrophils % 81.1% Lymphocytes % 13.1% Monocytes % 4.5% Eosinophils % 0.1% Basophils % 0.7% Nucleated Red Blood Cells % 0.0/100WBC Neutrophils # 8.710^3/ul Lymphocytes # 1.410^3/ul Monocytes # 0.510^3/ul Eosinophils # 0.010^3/ul Basophils # 0.110^3/ul Nucleated Red Blood Cells # 0.010^3/ul Sodium Level 139mmol/L Potassium Level 4.1mmol/L Chloride Level 104mmol/L Carbon Dioxide Level 26mmol/L Anion Gap 13 Blood Urea Nitrogen 7mg/dl Creatinine 0.51mg/dl Glucose Level 124mg/dl Calcium Level 9.1mg/dl Total Bilirubin 0.6mg/dl Direct Bilirubin 0.00mg/dl Indirect Bilirubin 0.6mg/dl Aspartate Amino Transf (AST/SGOT) 19IU/L Alanine Aminotransferase (ALT/SGPT) 34IU/L Alkaline Phosphatase 90IU/L Total Protein 7.5g/dl Albumin 4.4g/dl Globulin 3.10g/dl Albumin/Globulin Ratio 1.41 Lipase 84U/L Serum HCG, Qualitative NEGATIVE Urine Color LT. YELLOW Urine Clarity CLEAR Urine pH 7.0 Urine Specific [place] 1.010 Urine Ketones 15 Urine Nitrite NEGATIVE Urine Bilirubin NEGATIVE Urine Urobilinogen 0.2 E.U./dL Urine Leukocyte Esterase NEGATIVE Urine Microscopic RBC 0-2/HPF Urine Microscopic WBC 0-2/HPF Urine Hemoglobin TRACE Urine Glucose NEGATIVE% Urine Total Protein NEGATIVE Current Medications Medications (Trade) Dose Ordered Sig/Hi Route PRN Reason Start Time Stop Time Status Last Admin Dose Admin Sodium Chloride (NS) 1,000 ml @ 1,000 mls/hr Q1H STAT IV 03/15/17 09:11 03/15/17 10:10 DC 03/15/17 09:20 Pantoprazole (Protonix Iv) 40 mg ONCE ONCE IV 03/15/17 09:30 03/15/17 09:31 DC 03/15/17 09:16 IV Flush 10 ml 10 ml STK-MED ONCE .ROUTE 03/15/17 10:10 03/15/17 10:11 DC Sodium Chloride (NS) 100 ml @ ud STK-MED ONCE .ROUTE 03/15/17 10:10 03/15/17 10:11 DC Iohexol (Omnipaque 300mg/ ml) 150 ml STK-MED ONCE .ROUTE 03/15/17 10:10 03/15/17 10:11 DC Diphenhydramine HCl (Benadryl) 25 mg ONCE ONCE IV 03/15/17 11:30 03/15/17 11:31 DC 03/15/17 11:28 Morphine Sulfate (morphine) 4 mg ONCE STAT IV 03/15/17 11:16 03/15/17 11:19 DC 03/15/17 11:25 Ondansetron HCl (Zofran Odt) 4 mg ONCE STAT ODT 03/15/17 15:40 03/15/17 15:41 DC Ondansetron HCl (Zofran Odt) 4 mg STK-MED ONCE ODT 03/15/17 15:41 03/15/17 15:42 DC PROCEDURE: US Pelvis. CLINICAL INDICATION: 31-year-old female with history of ovarian pathology. Type not stated. TECHNIQUE: Multiple sonographic images of the pelvis were obtained utilizing a transabdominal and endovaginal technique. The images were reviewed on a PACS workstation. COMPARISON: CT scan abdomen pelvis 03/15/2017. FINDINGS: The uterus is visualized and measures 8 cm sagittal by 2.9 cm AP by 3.9 cm transverse. The endometrial echo complex is not fully evaluated and was not measured. There is no evidence for free fluid. The right ovary was not demonstrated. The left ovary has a normal echotexture and contains a simple ovarian cyst measuring 5.9 cm by 5.1 cm. No adnexal masses are noted. The visible portions of the urinary bladder are normal. IMPRESSION: 1. 5.9 x 5.1 cm simple left ovarian cyst. This measured 5.3 x 3.2 cm on the prior CT abdomen pelvis dated 03/15/2017. 2. Right ovary was not demonstrated. 3. Otherwise, unremarkable pelvic not of the sonogram. RPTAT:AAJJ Physician Perlita Date Time Electronically viewed and signed by Kwaku Hernández Physician on 03/15/2017 12:54 JM/ PROCEDURE: CT Abdomen and Pelvis with contrast. CLINICAL INDICATION: Abdominal pain. TECHNIQUE: CT scan of the abdomen and pelvis with contrast was performed on a multi-detector high-resolution CT scanner. The patient was scanned following the uncomplicated intravenous administration of 90 cc of Omnipaque 300. Coronal and sagittal reformatted images were obtained from the axial source images. One or more of the following dose reduction techniques were used: Automated exposure control, adjustment of the mA and/or kV according to patient size, use of iterative reconstruction technique. Images were reviewed on a high -resolution PACS workstation. The total exam CTDI equals 13.7 mGy and the total exam DLP equals 773.43 mGy-cm. COMPARISON: Correlation with CT from 02/02/2017 FINDINGS: The exam is limited secondary to suboptimal contrast bolus timing. Evaluation of the lung bases is limited due to breathing artifact. There is mild bibasilar atelectasis. Heart size is normal, and there is no evidence of pericardial thickening or effusion. There is evidence of prior gastric bypass surgery. The biliary limb is mildly distended, though stable in appearance when compared to 11/16/2016. There is no evidence of obstruction. The liver, spleen, and pancreas are normal given limitations of a noncontrast CT examination. The gallbladder is surgically absent. The adrenal glands are normal. The kidneys without renal calculus or hydronephrosis. The aorta is of normal caliber. There is no retroperitoneal lymph node enlargment. Contrast within the right femoral vein and a external iliac vein and IVC is noted, likely from the lower extremity injection. There is no evidence of large or small bowel obstruction. There is scattered colonic diverticula. There is no CT evidence of diverticulitis. There is mild retained colonic stool. A normal appendix is identified. No free fluid or fluid collections are identified. No inflammatory changes are seen. The uterus is present. An intrauterine contraceptive device is in place. There is a prominent left ovarian cyst measuring 5.3 x 3.2 x 4.6 cm. Previous the largest cyst left ovary measured 2.3 x 1.6 x 1.5 cm. No enlarged pelvic sidewall lymph nodes are seen. The bladder is within normal limits. No free fluid is identified. The inguinal regions are unremarkable. Note is made of unilateral L5 spondylolysis on the left. There is no spondylolisthesis. There are mild degenerative change of the spine. IMPRESSION: 1. Prominent left ovarian cyst measuring 5.3 x 3.2 x 4.6 cm. Pelvic ultrasound may be useful for further evaluation. Otherwise, no CT evidence of mass, lymphadenopathy, or inflammatory process. 2. Status post gastric bypass. The biliary limb remains mildly distended, though not significantly changed compared to the prior exam. 3. Status post cholecystectomy. 4. Diverticulosis without evidence of diverticulitis. 5. Unilateral L5 spondylolysis on the left. Mild degenerative change of the spine. RPTAT: EE .Nick Knight MD, MD Date Time Electronically viewed and signed by .Nick Knight MD, on 03/15/2017 11:03 .A/ Procedures/MDM DOCUMENTS REVIEWED: ED nurse, prior ED, prior records MEDICAL DECISION MAKIN-year-old female with history of chronic abdominal pain, anxiety, depression, , esophagitis, ovarian cysts, gastric bypass and cholecystectomy with well documented h/o opioid dependence presents to the ED via RA c/o a one day h/o severe generalized, crampy, non-radiating abdominal pain with nausea and vomiting but no diarrhea or constipations. CT and ultrasound findings as above reveal previously diagnosed ovarian cysts. No pancreatitis, appendicitis, diverticulitis, colitis, bowel obstruction, incarcerated hernia, obstructive uropathy or ovarian torsion. No UTI or pyelonephritis. Not . Chronic abdominal exacerbated by anxiety and opioid dependence. No suicidality or homicidality. No rebound guarding or signs of peritonitis. Stable for discharge with precautionary instructions, referral to pain management and outpatient followup as counseled. Counseled patient regarding diagnostic workup, diagnosis and need for followup. Understands to return to ED if symptoms recur, worsen or any other concerns. Departure Diagnosis: Primary Impression: Undifferentiated abdominal pain Additional Impressions: Chronic pain Chronic pain type: other chronic pain Qualified Code: G89.29 - Other chronic pain Ovarian cyst Laterality: left Qualified Code: N83.202 - Cyst of left ovary Anxiety H/O opioid abuse Condition: Stable (Improved) CASTILLO MILLAN MD March 15, 2017 09:10
[2017-03-15] MEDS ORDERED: SOD CHLORIDE 0.9% 1,000 ML IV STA (09:11)
[2017-03-15 09:28] LABS: ADD SCAN DIFF NO
[2017-03-15] MEDS ORDERED: PANTOPRAZOLE 40 MG INJ IV ONE (09:30)
[2017-03-15 09:45] LABS: BASOPHIL # 0.1 10^3/ul (0.0-0.1); BASOPHILS % 0.7 % (0.0-2.0); EOSINOPHILS % 0.1 % (0.0-7.0); HEMATOCRIT 37.9 % (37.0-47.0); HEMOGLOBIN 11.9 g/dl (12.0-16.0); LYMPHOCYTES # 1.4 10^3/ul (0.8-2.9); LYMPHOCYTES % 13.1 % (15.0-51.0); MEAN CORPUSCULAR HGB CONC 31.4 g/dl (32.0-37.0); MEAN CORPUSCULAR VOLUME 79.6 fl (82.0-101.0); MEAN PLATELET VOLUME 9.1 fl (7.4-10.4); MONOCYTE # 0.5 10^3/ul (0.3-0.9); MONOCYTES % 4.5 % (0.0-11.0); NEUTROPHIL # 8.7 10^3/ul (1.6-7.5); NEUTROPHILS % 81.1 % (39.0-77.0); PLATELET COUNT 504 10^3/UL (140-415); RED BLOOD COUNT 4.76 10^6/ul (4.20-5.40); RED CELL DISTRIBUTION WIDTH 14.4 % (11.5-14.5); WHITE BLOOD COUNT 10.7 10^3/ul (4.8-10.8)
[2017-03-15 09:50] LABS: ALBUMIN 4.4 g/dl (3.3-4.9); ALBUMIN/GLOBULIN RATIO 1.41; BILIRUBIN,INDIRECT 0.6 mg/dl (0-1.1); BILIRUBIN,TOTAL 0.6 mg/dl (0.2-1.3); CALCIUM 9.1 mg/dl (8.4-10.2); CREATININE 0.51 mg/dl (0.44-1.00); POTASSIUM 4.1 mmol/L (3.5-5.1); TOTAL PROTEIN 7.5 g/dl (6.1-8.1)
[2017-03-15] MEDS ORDERED: IOHEXOL 300MG/ML 150 ML BTL ONE (10:10)
[2017-03-15] MEDS ORDERED: SOD CHLORIDE 0.9% 100 ML ONE (10:10)
--- NOTE | 2017-03-15 11:04 | RADRPT ---
PROCEDURE: CT Abdomen and Pelvis with contrast. CLINICAL INDICATION: Abdominal pain. TECHNIQUE: CT scan of the abdomen and pelvis with contrast was performed on a multi-detector high- resolution CT scanner. The patient was scanned following the uncomplicated intravenous administrati on of 90 cc of Omnipaque 300. Coronal and sagittal reformatted images were obtained from the axial source images. One or more of the following dose reduction techniques were used: Automated exposure control, adjustment of the mA and/or kV according to patient size, use of iterative reconstruction technique. Images were reviewed on a high-resolution PACS workstation. The total exam CTDI equals 13.7 mGy and the total exam DLP equals 773.43 mGy-cm. COMPARISON: Correlation with CT from 02/02/2017 FINDINGS: The exam is limited secondary to suboptimal contrast bolus timing. Evaluation of the lung bases is limited due to breathing artifact. There is mild bibasilar atelectas is. Heart size is normal, and there is no evidence of pericardial thickening or effusion. There is evidence of prior gastric bypass surgery. The biliary limb is mildly distended, though stable in ap pearance when compared to 11/16/2016. There is no evidence of obstruction. The liver, spleen, and pancreas are normal given limitations of a noncontrast CT examination. The ga llbladder is surgically absent. The adrenal glands are normal. The kidneys without renal calculus or hydronephrosis. The aorta is of normal caliber. There is no retroperitoneal lymph node enlargment. Contrast within t he right femoral vein and a external iliac vein and IVC is noted, likely from the lower extremity in jection. There is no evidence of large or small bowel obstruction. There is scattered colonic diverticula. Th ere is no CT evidence of diverticulitis. There is mild retained colonic stool. A normal appendix is identified. No free fluid or fluid collections are identified. No inflammatory changes are seen. The uterus is present. An intrauterine contraceptive device is in place. There is a prominent left o varian cyst measuring 5.3 x 3.2 x 4.6 cm. Previous the largest cyst left ovary measured 2.3 x 1.6 x 1.5 cm. No enlarged pelvic sidewall lymph nodes are seen. The bladder is within normal limits. No free fluid is identified. The inguinal regions are unremarkable. Note is made of unilateral L5 spondylolysis on the left. There is no spondylolisthesis. There are mi ld degenerative change of the spine. IMPRESSION: 1. Prominent left ovarian cyst measuring 5.3 x 3.2 x 4.6 cm. Pelvic ultrasound may be useful for fu rther evaluation. Otherwise, no CT evidence of mass, lymphadenopathy, or inflammatory process. 2. Status post gastric bypass. The biliary limb remains mildly distended, though not significantly c hanged compared to the prior exam. 3. Status post cholecystectomy. 4. Diverticulosis without evidence of diverticulitis. 5. Unilateral L5 spondylolysis on the left. Mild degenerative change of the spine. RPTAT: EE .Nick Knight MD, MD Date Time Electronically viewed and signed by .Nick Knight MD, MD on 03/15/2017 11:03 .A/
[2017-03-15] MEDS ORDERED: LURA20TA PO (11:07)
[2017-03-15] MEDS ORDERED: ALPR2TAB PO (11:07)
[2017-03-15] MEDS ORDERED: QUET25TA26 PO (11:08)
[2017-03-15] MEDS ORDERED: LAMO25TB PO (11:08)
[2017-03-15] MEDS ORDERED: CALC-1 PO (11:10)
[2017-03-15] MEDS ORDERED: morphine 4 MG/ML VIAL IV STA (11:16)
[2017-03-15] MEDS ORDERED: DIPHENHYDRAMINE 50 MG INJ IV ONE (11:30)
[2017-03-15 12:45] LABS: ADD UMIC YES; URINE BILIRUBIN (Dip) NEGATIVE (NEGATIVE); URINE BLOOD (Dip) TRACE (NEGATIVE); URINE COLOR LT. YELLOW (YELLOW); URINE GLUCOSE (Dip) NEGATIVE (NEGATIVE); URINE KETONES (Dip) 15 (NEGATIVE); URINE LEUKOCYTE ESTERASE (Dip) NEGATIVE (NEGATIVE); URINE NITRITE (Dip) NEGATIVE (NEGATIVE); URINE TOTAL PROTEIN (Dip) NEGATIVE (NEGATIVE); URINE UROBILINOGEN (Dip) 0.2 E.U./dL (0.1-1.0)
--- NOTE | 2017-03-15 12:54 | RADRPT ---
PROCEDURE: US Pelvis. CLINICAL INDICATION: 31-year-old female with history of ovarian pathology. Type not stated. TECHNIQUE: Multiple sonographic images of the pelvis were obtained utilizing a transabdominal and endovaginal technique. The images were reviewed on a PACS workstation. COMPARISON: CT scan abdomen pelvis 03/15/2017. FINDINGS: The uterus is visualized and measures 8 cm sagittal by 2.9 cm AP by 3.9 cm transverse. The endometri al echo complex is not fully evaluated and was not measured. There is no evidence for free fluid. Th e right ovary was not demonstrated. The left ovary has a normal echotexture and contains a simple ov carri cyst measuring 5.9 cm by 5.1 cm. No adnexal masses are noted. The visible portions of the uri nary bladder are normal. IMPRESSION: 1. 5.9 x 5.1 cm simple left ovarian cyst. This measured 5.3 x 3.2 cm on the prior CT abdomen pelvi s dated 03/15/2017. 2. Right ovary was not demonstrated. 3. Otherwise, unremarkable pelvic not of the sonogram. RPTAT:AAJJ Physician Perlita Date Time Electronically viewed and signed by Physician Perlita on 03/15/2017 12:54 ОЛЕГ/
[2017-03-15 12:57] LABS: URINE RBCS 0-2 /HPF (0)
[2017-03-15 13:55] VITALS: BP 154/93; PULSE 65; RESP 18; TEMP 97.9
[2017-03-15] MEDS ORDERED: ONDANSETRON (ODT) 4 MG TAB ODT STA (15:40)
[2017-03-15] MEDS ORDERED: ONDANSETRON (ODT) 4 MG TAB ODT ONE (15:41)
== END 2017-03-15 17:55 | disposition home or self-care (01) ==
LOC: E/R 08:38
DX: R10.84 Generalized abdominal pain (principal); R40.2252 Coma scale, best verbal response, oriented, at arrival to emergency department; G89.29 Other chronic pain; N83.202 Unspecified ovarian cyst, left side; F41.9 Anxiety disorder, unspecified; F11.10 Opioid abuse, uncomplicated; R11.2 Nausea with vomiting, unspecified; R40.2142 Coma scale, eyes open, spontaneous, at arrival to emergency department; R40.2362 Coma scale, best motor response, obeys commands, at arrival to emergency department
CPT/HCPCS: 74177; 76830; 76856; 80053; 81001; 83690; 84703; 85025; 96374; 96375; C9113; J1200; J2270; J7030; Q9967; Z7502; Z7610; 81003

== ENCOUNTER 2017-03-16 21:15 | Emergency (ER) | payer OTHER ==
[~2017-03-16] VITALS: Ht 162.6 cm; Wt 85.0 kg
[~2017-03-16 21:15] MED LIST changes: -ALPR1TAB2 PO; +ALPR2TAB PO; +CALC-1 PO; -CARAS PO; -DIPH25CA6 PO; -ESCI20TA PO; -IBUP-1542 PO; +LAMO25TB PO; +LURA20TA PO; -ONDA4TAB14 PO; -PANT40TA4 PO; +QUET25TA26 PO; -UDTYL PO
[2017-03-16 21:26] VITALS: Ht 162.6 cm; Wt 85.0 kg
[2017-03-16 22:40] LABS: URINE BLOOD (Dip) POC Trace-lysed (NEGATIVE)
[2017-03-16] MEDS ORDERED: ONDANSETRON 4 MG INJ IV STA (22:41)
[2017-03-16] MEDS ORDERED: LORAZEPAM 2 MG INJ IV ONE (23:00)
[2017-03-16] MEDS ORDERED: FAMOTIDINE 20 MG TAB PO ONE (23:00)
[2017-03-16] MEDS ORDERED: DIPHENHYDRAMINE 25 MG CAP PO ONE (23:00)
[2017-03-16] MEDS ORDERED: LORAZEPAM 1 MG TAB PO ONE (23:00)
[2017-03-16] MEDS ORDERED: FAMOTIDINE 20 MG INJ IV ONE (23:00)
[2017-03-16 23:04] LABS: ADD SCAN DIFF NO
[2017-03-16 23:12] LABS: COCAINE Negative (NEGATIVE)
[2017-03-16 23:17] LABS: BARBITURATES Negative (NEGATIVE); BENZODIAZEPINES Negative (NEGATIVE); CANNABINOIDS Negative (NEGATIVE); OPIATES Negative (NEGATIVE)
[2017-03-16] MEDS ORDERED: SOD CHLORIDE 0.9% 1,000 ML IV ONE (23:30)
[2017-03-16 23:33] LABS: ALBUMIN 4.7 g/dl (3.3-4.9); ALBUMIN/GLOBULIN RATIO 1.3; BILIRUBIN,INDIRECT 1.1 mg/dl (0-1.1); BILIRUBIN,TOTAL 1.1 mg/dl (0.2-1.3); CALCIUM 9.4 mg/dl (8.4-10.2); CREATININE 0.55 mg/dl (0.44-1.00); POTASSIUM 3.6 mmol/L (3.5-5.1); TOTAL PROTEIN 8.3 g/dl (6.1-8.1)
[2017-03-16 23:36] LABS: BASOPHIL # 0.1 10^3/ul (0.0-0.1); BASOPHILS % 0.7 % (0.0-2.0); EOSINOPHILS # 0.1 10^3/ul (0.0-0.5); EOSINOPHILS % 0.6 % (0.0-7.0); HEMATOCRIT 37.8 % (37.0-47.0); HEMOGLOBIN 11.9 g/dl (12.0-16.0); LYMPHOCYTES # 2.6 10^3/ul (0.8-2.9); MEAN CORPUSCULAR HEMOGLOBIN 25.3 pg (29.0-33.0); MEAN CORPUSCULAR HGB CONC 31.5 g/dl (32.0-37.0); MEAN CORPUSCULAR VOLUME 80.4 fl (82.0-101.0); MONOCYTES % 9.1 % (0.0-11.0); NEUTROPHIL # 7.1 10^3/ul (1.6-7.5); NEUTROPHILS % 65.2 % (39.0-77.0); PLATELET COUNT 482 10^3/UL (140-415); RED CELL DISTRIBUTION WIDTH 14.6 % (11.5-14.5); WHITE BLOOD COUNT 10.9 10^3/ul (4.8-10.8)
[2017-03-17] MEDS ORDERED: BEN50 PO (00:48)
[2017-03-17 01:19] VITALS: BP 147/89; PULSE 60; RESP 16
[2017-03-17] MEDS ORDERED: DIPHENHYDRAMINE 25 MG CAP PO ONE (01:30)
--- NOTE | 2017-03-18 21:03 | ERD ---
ER Documentation Chief Complaint Date/Time DATE: 03/18/17 TIME: 20:49 Chief Complaint STATES ANXIETY IS GETTING WORSE. SEEN YESTERDAY FOR SAME REASON. HPI This is a 31-year-old female presents to the ED with complaints of increased anxiety and shaking. Patient has relevant medical history of chronic abdominal pain, anxiety, depression, bipolar disorder and history of opioid dependence. Patient has had previous gastric bypass surgery and states she has required several revisions of this surgery. Denies abdominal pain, nausea, vomiting, diarrhea or constipation. No hematemesis, hematochezia or melanotic stools. She state she has been shaking for the last few hours and feels very anxious. Denies chest pain, palpitations or shortness of breath. No dysuria, hematuria or polyuria. No fevers or chills. ROS All systems reviewed and are negative except as per history of present illness. Medications Home Meds Active Scripts Diphenhydramine Hcl* (Benadryl*) 50 Mg Cap, 50 MG PO Q6 Y for ANXIETY, #15 CAP Prov:MARILU REIS [employer] 03/17/17 Reported Medications Calcium Carbonate/Vitamin D3 (Calcium 500+D Tablet Chew) 1 Each Tab.chew, 1 EACH PO BID, TAB.CHEW 03/15/17 Quetiapine Fumarate* (Seroquel*) 25 Mg Tablet, 25 MG PO HS, #30 TAB 03/15/17 Lamotrigine* (Lamotrigine* CHEW) 25 Mg Tab.disper, 50 MG PO QHS, TAB 03/15/17 Lurasidone Hcl (LATUDA) 20 Mg Tablet, 20 MG PO QHS, #30 TAB 03/15/17 Alprazolam* (Xanax*) 2 Mg Tablet, 2 MG PO BID Y for ANXIETY, TAB 03/15/17 Discontinued Reported Medications Alprazolam* (Xanax*) 1 Mg Tab, 1 MG PO BID Y for PRN, TAB 11/18/16 Escitalopram Oxalate* (Lexapro*) 20 Mg Tablet, 20 MG PO QHS, #30 TAB 11/18/16 Discontinued Scripts Ondansetron (Ondansetron Odt) 4 Mg Tab.rapdis, 4 MG PO Q6H Y for NAUSEA AND/OR VOMITING, #10 TAB Prov:JAY STATON [employer] 02/02/17 Acetaminophen* (Tylenol*) 160 Mg/5 Ml Soln, 10 ML PO Q6H Y for PAIN AND OR ELEVATED TEMP, #8 OZ Prov:JAY STATON NP 02/02/17 Sucralfate* (Carafate*) 1 Gm/10 Ml Susp, 1 GM PO QID for 14 Days Prov:RYANN BUTLER MD 11/19/16 Pantoprazole* (Pantoprazole*) 40 Mg Tablet.dr, 40 MG PO DAILY@06 for 30 Days Prov:RYANN BUTLER MD 11/19/16 Diphenhydramine Hcl* (Diphenhydramine Hcl*) 25 Mg Capsule, 25 MG PO Q6 Y for ITCHING, #20 CAP Prov:KATHERINE GILL PA-C 11/14/16 Ibuprofen* (Motrin*) 600 Mg Tab, 600 MG PO Q6H Y for PAIN AND OR ELEVATED TEMP, #20 TAB Prov:KATHERINE GILL PA-C 11/14/16 Ondansetron (Ondansetron Odt) 4 Mg Tab.rapdis, 4 MG PO Q6H Y for NAUSEA AND/OR VOMITING, #12 TAB Prov:KATHERINE GILL PA-C 11/14/16 Allergies Allergies: Coded Allergies: ibuprofen (Verified Allergy, Unknown, 03/15/17) tramadol (Verified Allergy, Unknown, 03/15/17) PMhx/Soc History of Surgery: Yes (Gastric bypass,LapColi) Anesthesia Reaction: No Hx Neurological Disorder: No Hx Respiratory Disorders: No Hx Cardiac Disorders: No Hx Psychiatric Problems: Yes (depression, anxiety, bipolar) Hx Miscellaneous Medical Probl: No Hx Alcohol Use: No Hx Substance Use: No Hx Tobacco Use: No Physical Exam Vitals Vital Signs Date Time Temp Pulse Resp B/P Pulse Ox O2 Delivery O2 Flow Rate FiO2 03/17/17 01:19 60 16 147/89 99 Room Air 03/16/17 21:26 99.7 56 20 147/89 97 Physical Exam Const: alert, anxious, shaking, Head: Atraumatic Eyes: Normal Conjunctiva ENT: Normal External Ears, Nose and Mouth. Neck: Full range of motion..~ No meningismus. Resp: Clear to auscultation bilaterally Cardio: Regular rate and rhythm, no murmurs Abd: Soft, non tender, non distended. Normal bowel sounds Skin: No petechiae or rashes Back: No midline or flank tenderness Ext: No cyanosis, or edema Neur: Awake and alert Psych: Normal Mood and Affect Result Diagram: 03/16/175 03/16/17 2325 Results 24 hrs Laboratory Tests Test 03/16/17 22:15 03/16/17 22:41 03/16/17 23:25 Urine Opiates Screen Negative Urine Barbiturates Negative Urine Amphetamines Screen Negative Urine Benzodiazepines Screen Negative Urine Cocaine Screen Negative Urine Cannabinoids Negative Bedside Urine pH (LAB) 7.0 Bedside Urine Protein (LAB) Negative Bedside Urine Glucose (UA) Negative Bedside Urine Ketones (LAB) Negative Bedside Urine Blood Trace-lysed Bedside Urine Nitrite (LAB) Negative Bedside Urine Leukocyte Esterase (L Negative White Blood Count 10.910^3/ul Red Blood Count 4.7010^6/ul Hemoglobin 11.9g/dl Hematocrit 37.8% Mean Corpuscular Volume 80.4fl Mean Corpuscular Hemoglobin 25.3pg Mean Corpuscular Hemoglobin Concent 31.5g/dl Red Cell Distribution Width 14.6% Platelet Count 55842^3/UL Mean Platelet Volume 9.0fl Neutrophils % 65.2% Lymphocytes % 24.0% Monocytes % 9.1% Eosinophils % 0.6% Basophils % 0.7% Nucleated Red Blood Cells % 0.0/100WBC Neutrophils # 7.110^3/ul Lymphocytes # 2.610^3/ul Monocytes # 1.010^3/ul Eosinophils # 0.110^3/ul Basophils # 0.110^3/ul Nucleated Red Blood Cells # 0.010^3/ul Sodium Level 136mmol/L Potassium Level 3.6mmol/L Chloride Level 102mmol/L Carbon Dioxide Level 23mmol/L Anion Gap 15 Blood Urea Nitrogen 7mg/dl Creatinine 0.55mg/dl Glucose Level 106mg/dl Calcium Level 9.4mg/dl Total Bilirubin 1.1mg/dl Direct Bilirubin 0.00mg/dl Indirect Bilirubin 1.1mg/dl Aspartate Amino Transf (AST/SGOT) 19IU/L Alanine Aminotransferase (ALT/SGPT) 33IU/L Alkaline Phosphatase 92IU/L Total Protein 8.3g/dl Albumin 4.7g/dl Globulin 3.60g/dl Albumin/Globulin Ratio 1.30 Current Medications Medications (Trade) Dose Ordered Sig/Hi Route PRN Reason Start Time Stop Time Status Last Admin Dose Admin Diphenhydramine HCl (Benadryl) 25 mg ONCE ONCE PO 03/16/17 23:00 03/16/17 23:00 DC Lorazepam (Ativan) 1 mg ONCE ONCE PO 03/16/17 23:00 03/16/17 23:00 DC Famotidine (Pepcid) 20 mg ONCE ONCE PO 03/16/17 23:00 03/16/17 23:00 DC Ondansetron HCl (Zofran Inj) 4 mg ONCE STAT IV 03/16/17 22:41 03/16/17 22:44 DC 03/16/17 23:11 Famotidine (Pepcid Iv) 20 mg ONCE ONCE IV 03/16/17 23:00 03/16/17 23:01 DC 03/16/17 23:11 Lorazepam 1 mg 1 mg ONCE ONCE IV 03/16/17 23:00 03/16/17 23:01 DC 03/16/17 23:11 Sodium Chloride (NS) 1,000 ml @ 1,000 mls/hr Q1H ONCE IV 03/16/17 23:30 03/17/17 00:29 DC 03/16/17 23:14 Diphenhydramine HCl (Benadryl) 25 mg ONCE ONCE PO 03/17/17 01:30 03/17/17 01:31 DC 03/17/17 01:13 Procedures/MDM MDM: 31 year old female presents to ER with c/o increased anxiety and shaking. Patient states due to her previous abdominal surgeries, when her " electrolytes are low" she develops these symptoms. Patient given Pepcid and lorazepam. Patient reassessed and appears much less anxious and is no longer trembling. Patient requesting IV Benadryl so that she can "pass out and go home to sleep." Patient states that IV Benadryl is the only thing that works to control her anxiety. Patient refusing PO Benadryl. Labs are unremarkable. No signs of anemia, infection, electrolyte imbalance, hyperglycemia or hypoglycemia. Urine is negative for infection. Drug screen negative. No abdominal pain, nausea, vomiting, diarrhea or constipation. Patient was seen in ER yesterday. At that time, a pelvic US and Ct abdomen and pelvis were performed. Pelvic US was reviewed by radiologist as ovarian cyst. Abdominal CT and pelvic reviewed by radiologist as s/p gastric bypass and cholecystectomy with diverticulosis. Patient remains afebrile. Discussed findings with patient. Low suspicion for appendicitis, diverticulitis, acute NE, PE, pneumothorax, pneumonia or sepsis. Patient's diagnosis is anxiety. Patient is appropriate for outpatient management and will be given prescription for Benadryl. Patient instructed to follow up with PCP in the next 2-3 days for reassessment. Return to ED for any new or worsening symptoms. All questions answered at discharge. Patient verbalizes understanding. Departure Diagnosis: Primary Impression: Anxiety Condition: Stable Patient Instructions: Anxiety Reaction Additional Instructions: Call your primary care doctor TOMORROW for an appointment during the next 2-3 days.See the doctor sooner or return here if your condition worsens before your appointment time. Return to ED for any high fever, chest pain, difficulty breathing, shortness breath, wheezing, vomiting, diarrhea, abdominal pain or any new or worsening symptoms. MARILU REIS NP March 18, 2017 21:03
== END 2017-03-17 01:20 | disposition home or self-care (01) ==
LOC: FTE 21:15
DX: F41.9 Anxiety disorder, unspecified (principal)
CPT/HCPCS: 80053; 80307; 81003; 85025; 93005; J2060; J2405; J7030; Z7610; 96361; 96374; 96375

== ENCOUNTER 2017-03-23 23:36 | Emergency (ER) | payer OTHER ==
[~2017-03-23] VITALS: Ht 162.6 cm; Wt 86.3 kg
[~2017-03-23 23:36] MED LIST changes: +BEN50 PO
[2017-03-23 23:38] VITALS: Ht 162.6 cm; Wt 86.3 kg
[2017-03-24] MEDS ORDERED: morphine 4 MG/ML VIAL IV STA ×2 (00:23→01:36)
[2017-03-24] MEDS ORDERED: SOD CHLORIDE 0.9% 1,000 ML IV STA (00:23)
[2017-03-24] MEDS ORDERED: ONDANSETRON 4 MG INJ IV STA (00:23)
--- NOTE | 2017-03-24 00:49 | ERD ---
ER Documentation Chief Complaint Date/Time DATE: 03/24/17 TIME: 00:48 Chief Complaint C/O ABD PAIN AND VOMITING. STATES MULTIPLE VISITS HERE TO ER/ ANXIOUS HPI 31-year-old female presents to emergency department for complaints of epigastric pain and vomiting started 3 days ago. Patient describes the pain as sharp pain, 9/10 scale, accommodative and vomiting. Patient does not have any blood in the vomit. Patient has history of gastric bypass, history of overproduction of bile that causes epigastric pain. Patient has history of anxiety, was treated for her anxiety by her psychiatric doctor today. Patient did not take any medications of the symptoms. Patient denies any fever or chills. Patient denies any diarrhea or constipation. ROS All systems reviewed and are negative except as per history of present illness. Medications Home Meds Active Scripts Diphenhydramine Hcl* (Benadryl*) 50 Mg Cap, 50 MG PO Q6 Y for ANXIETY, #15 CAP Prov:MARILU REIS [employer]ING [employer]ENDER 03/17/17 Reported Medications Calcium Carbonate/Vitamin D3 (Calcium 500+D Tablet Chew) 1 Each Tab.chew, 1 EACH PO BID, TAB.CHEW 03/15/17 Quetiapine Fumarate* (Seroquel*) 25 Mg Tablet, 25 MG PO HS, #30 TAB 03/15/17 Lamotrigine* (Lamotrigine* CHEW) 25 Mg Tab.disper, 50 MG PO QHS, TAB 03/15/17 Lurasidone Hcl (LATUDA) 20 Mg Tablet, 20 MG PO QHS, #30 TAB 03/15/17 Alprazolam* (Xanax*) 2 Mg Tablet, 2 MG PO BID Y for ANXIETY, TAB 03/15/17 Allergies Allergies: Coded Allergies: ibuprofen (Verified Allergy, Unknown, 03/15/17) tramadol (Verified Allergy, Unknown, 03/15/17) PMhx/Soc History of Surgery: Yes (Gastric bypass,LapColi) Anesthesia Reaction: No Hx Neurological Disorder: No Hx Respiratory Disorders: No Hx Cardiac Disorders: No Hx Psychiatric Problems: Yes (depression, anxiety, bipolar) Hx Miscellaneous Medical Probl: No Hx Alcohol Use: No Hx Substance Use: No Hx Tobacco Use: No Smoking Status: Never smoker FmHx Family History: No coronary disease, No diabetes, No other Physical Exam Vitals Vital Signs Date Time Temp Pulse Resp B/P Pulse Ox O2 Delivery O2 Flow Rate FiO2 03/23/17 23:38 98.6 98 22 188/94 100 Physical Exam GENERAL: The patient is well developed and appropriate for usual state of health, in no apparent distress. CHEST: Clear to auscultation bilaterally. There are no rales, wheezes or rhonchi. HEART: Regular rate and rhythm. No murmurs, clicks, rubs or gallops. No S3 or S4. ABDOMEN: Soft, nontender and nondistended. Good bowel sounds. No rebound or guarding. No gross peritonitis. No gross organomegaly or masses. No Lopez sign or McBurney point tenderness. BACK: No midline or flank tenderness. EXTREMITIES: Equal pulses bilaterally. There is no peripheral clubbing, cyanosis or edema. No focal swelling or erythema. Full range of motion. Grossly neurovascularly intact. NEURO: Alert and oriented. Cranial nerves 2-12 intact. Motor strength in all 4 extremities with 5/5 strength. Sensation grossly intact. Normal speech and gait. SKIN: There is no apparent rash or petechia. The skin is warm and dry. HEMATOLOGIC AND LYMPHATIC: There is no evidence of excessive bruising or lymphedema. No gross cervical, axillary, or inguinal lymphadenopathy. Result Diagram: 03/24/17 0035 03/24/17 0035 Results 24 hrs Laboratory Tests Test 03/24/17 00:32 03/24/17 00:35 Urine Color LT. YELLOW Urine Clarity SL HAZY Urine pH 6.0 Urine Specific [place] 1.025 Urine Ketones NEGATIVE Urine Nitrite NEGATIVE Urine Bilirubin NEGATIVE Urine Urobilinogen 1.0 E.U./dL Urine Leukocyte Esterase NEGATIVE Urine Microscopic RBC 10-25/HPF Urine Microscopic WBC 0-2/HPF Urine Squamous Epithelial Cells MODERATE Urine Bacteria FEW Urine Hemoglobin 3+ Urine Glucose 0.1%% Urine Total Protein NEGATIVE White Blood Count 12.410^3/ul Red Blood Count 5.2910^6/ul Hemoglobin 13.3g/dl Hematocrit 43.2% Mean Corpuscular Volume 81.7fl Mean Corpuscular Hemoglobin 25.1pg Mean Corpuscular Hemoglobin Concent 30.8g/dl Red Cell Distribution Width 14.7% Platelet Count 76337^3/UL Mean Platelet Volume 9.3fl Neutrophils % 67.4% Lymphocytes % 22.8% Monocytes % 7.0% Eosinophils % 1.9% Basophils % 0.6% Nucleated Red Blood Cells % 0.0/100WBC Neutrophils # 8.310^3/ul Lymphocytes # 2.810^3/ul Monocytes # 0.910^3/ul Eosinophils # 0.210^3/ul Basophils # 0.110^3/ul Nucleated Red Blood Cells # 0.010^3/ul Sodium Level 137mmol/L Potassium Level 4.2mmol/L Chloride Level 101mmol/L Carbon Dioxide Level 28mmol/L Anion Gap 12 Blood Urea Nitrogen 8mg/dl Creatinine 0.51mg/dl Glucose Level 103mg/dl Calcium Level 9.4mg/dl Total Bilirubin 0.8mg/dl Direct Bilirubin 0.00mg/dl Indirect Bilirubin 0.8mg/dl Aspartate Amino Transf (AST/SGOT) 16IU/L Alanine Aminotransferase (ALT/SGPT) 36IU/L Alkaline Phosphatase 82IU/L Total Protein 7.9g/dl Albumin 4.6g/dl Globulin 3.30g/dl Albumin/Globulin Ratio 1.39 Lipase 129U/L Current Medications Medications (Trade) Dose Ordered Sig/Hi Route PRN Reason Start Time Stop Time Status Last Admin Dose Admin Sodium Chloride (NS) 1,000 ml @ 1,000 mls/hr Q1H STAT IV 03/24/17 00:23 03/24/17 01:22 DC 03/24/17 00:52 Morphine Sulfate (morphine) 4 mg ONCE STAT IV 03/24/17 00:23 03/24/17 00:25 DC 03/24/17 00:53 Ondansetron HCl (Zofran Inj) 4 mg ONCE STAT IV 03/24/17 00:23 03/24/17 00:25 DC 03/24/17 00:52 Morphine Sulfate (morphine) 4 mg ONCE STAT IV 03/24/17 01:36 03/24/17 01:39 DC 03/24/17 01:43 IV Flush 10 ml 10 ml STK-MED ONCE .ROUTE 03/24/17 02:21 03/24/17 02:22 DC 03/24/17 02:25 Sodium Chloride (NS) 100 ml @ ud STK-MED ONCE .ROUTE 03/24/17 02:21 03/24/17 02:22 DC 03/24/17 02:25 Iohexol (Omnipaque 300mg/ ml) 150 ml STK-MED ONCE .ROUTE 03/24/17 02:21 03/24/17 02:22 DC 03/24/17 02:25 Patient was given medication for pain here in emergency department, after treatment, patient verbalized feeling much better. Patient's pain is improved. Patient was given Zofran here in the emergency department. After treatment, patient was able to tolerate po fluids here in the emergency department without any vomiting. There is no signs and symptoms of dehydration. Normal saline IV bolus was given here in emergency department for rehydration, patient tolerated IV fluids. PROCEDURE: Right upper quadrant ultrasound. CLINICAL INDICATION: Abdominal pain. TECHNIQUE: Multiple real-time longitudinal and transverse images of the right upper quadrant of the abdomen were acquired utilizing a curved array transducer. Images were reviewed on a high-resolution PACS workstation. COMPARISON: None. FINDINGS: The pancreas head and body are unremarkable. The pancreas tail is not well seen The liver is normal in echogenicity. The liver measures 17.4 cm in length. No hepatic lesion or intrahepatic biliary ductal dilatation is seen. The portal vein is patent with hepatopetal flow. The patient is status post cholecystectomy. The common bile duct measures 4 mm in diameter, not dilated. The right kidney measures 10.6 cm in length. Renal echogenicity is normal. There is no hydronephrosis, urinary calculus, or renal mass. The visualized portions of the aorta and IVC are unremarkable. IMPRESSION: 1. Status post cholecystectomy. 2. No biliary dilatation. RPTAT: HTAR .Sushil Griffith MD, MD Date Time Electronically viewed and signed by .Sushil Griffith MD, MD on 03/24/2017 01:21 .R/ CC: SERGEY NATION NP PROCEDURE: CT Abdomen and pelvis with contrast. CLINICAL INDICATION: Abdominal pain. TECHNIQUE: CT scan of the abdomen and pelvis with contrast was performed on a multi-detector high-resolution CT scanner. The patient was scanned following the uncomplicated administration of 95 cc of Omnipaque 300 intravenous contrast. Coronal and sagittal reformatted images were obtained from the axial source images. Images were reviewed on a high-resolution PACS workstation. One or more of the following dose reduction techniques were used: - Automated exposure control. - Adjustment of the mA and/or kV according to patient size. - Use of iterative reconstruction technique. Exam CTD/vol = 17.26 mGy. Total exam DLP = 1088.50 mGy-cm. COMPARISON: 03/15/2017. FINDINGS: Evaluation of the lung bases demonstrates minimal bibasilar atelectasis. Abdomen: The liver is normal in size with no focal mass identified. The patient is status post cholecystectomy with mild dilatation of the biliary tree. The spleen, pancreas and bilateral adrenal glands are within normal limits. Bilateral kidneys are normal in size with symmetric enhancement. There is no focal mass, hydronephrosis or hydroureter. There is no retroperitoneal adenopathy. The abdominal aorta is of normal caliber. There is prior gastric surgery. There is no bowel obstruction or free air. A normal appendix is identified. There are scattered colonic diverticuli without evidence of diverticulitis. There is no ascites. Pelvis: The bladder is unremarkable. There is an intrauterine device in place. There is a cystic structure within the left adnexa measuring 3.3 x 2.7 cm. There is no significant pelvic adenopathy or free fluid. Evaluation of the osseous structures demonstrates no suspicious lytic or blastic lesion. There is a defect of the left pars interarticularis of L5. IMPRESSION: Status post cholecystectomy with mild dilatation of the biliary tree. Prior gastric surgery. Scattered colonic diverticuli without evidence of diverticulitis. Left adnexal 3.3 cm cyst. Intrauterine device. Left pars defect of L5. .David Morales MD, MD Date Time Electronically viewed and signed by .David Morales MD, MD on 03/24/2017 02:38 .T/ CC: SERGEY NATION NP PROCEDURE: Right upper quadrant ultrasound. CLINICAL INDICATION: Abdominal pain. TECHNIQUE: Multiple real-time longitudinal and transverse images of the right upper quadrant of the abdomen were acquired utilizing a curved array transducer. Images were reviewed on a high-resolution PACS workstation. COMPARISON: None. FINDINGS: The pancreas head and body are unremarkable. The pancreas tail is not well seen The liver is normal in echogenicity. The liver measures 17.4 cm in length. No hepatic lesion or intrahepatic biliary ductal dilatation is seen. The portal vein is patent with hepatopetal flow. The patient is status post cholecystectomy. The common bile duct measures 4 mm in diameter, not dilated. The right kidney measures 10.6 cm in length. Renal echogenicity is normal. There is no hydronephrosis, urinary calculus, or renal mass. The visualized portions of the aorta and IVC are unremarkable. IMPRESSION: 1. Status post cholecystectomy. 2. No biliary dilatation. RPTAT: HTAR .Sushil Griffith MD, Date Time Electronically viewed and signed by .Sushil Griffith MD, on 03/24/2017 01:21 .R/ CC: SERGEY NATION [employer]ING MACHINE TENDER Procedures/MDM Medical Decision Making: Patient symptoms of epigastric pain nonspecific at this time, possibly acid reflux disease which is most likely gastritis related to anxiety. Patient may have stress ulcer, recommended to do an EGD with primary care doctor for further evaluation. Low suspicion for any bowel perforation. There is low suspicion for abdominal emergencies at this time. Patients abdominal exam is normal at this time. Patients radiology exam does not show any abdominal emergencies at this time. There is low suspicion for appendicitis, cholecystitis, abdominal aortic aneurysms or peritonitis at this time. There is low suspicion for sepsis. Patient appears well and is hemodynamically stable. Disposition: Home. Condition: Stable Prescription omeprazole, Mylanta, Zofran, [place] Instructions: Patient is advised to take medications as prescribed. Patient is advised to rest, increase fluid intake and do brat diet for next 1-2 days and progress as tolerated. Patient is advised that if symptoms are worse, severe abdominal pain, uncontrolled vomiting, high fever, severe flank pain, worst signs and symptoms, to return to the emergency department immediately. Otherwise, patient can follow up with primary care doctor in 5-7 days. Request EGD with primary care doctor for further evaluation. Departure Diagnosis: Primary Impression: Epigastric abdominal pain Condition: Stable Patient Instructions: Epigastric Pain (Uncertain Cause) Additional Instructions: Patient is advised to take medications as prescribed. Patient is advised to rest, increase fluid intake and do brat diet for next 1-2 days and progress as tolerated. Patient is advised that if symptoms are worse, severe abdominal pain , uncontrolled vomiting, high fever, severe flank pain, worst signs and symptoms , to return to the emergency department immediately. Otherwise, patient can follow up with primary care doctor in 5-7 days. Request EGD with primary care doctor for further evaluation. SERGEY NATION NP March 24, 2017 00:49
[2017-03-24 01:06] LABS: ADD SCAN DIFF NO
[2017-03-24 01:07] LABS: BASOPHIL # 0.1 10^3/ul (0.0-0.1); BASOPHILS % 0.6 % (0.0-2.0); EOSINOPHILS # 0.2 10^3/ul (0.0-0.5); EOSINOPHILS % 1.9 % (0.0-7.0); HEMATOCRIT 43.2 % (37.0-47.0); HEMOGLOBIN 13.3 g/dl (12.0-16.0); LYMPHOCYTES # 2.8 10^3/ul (0.8-2.9); LYMPHOCYTES % 22.8 % (15.0-51.0); MEAN CORPUSCULAR HEMOGLOBIN 25.1 pg (29.0-33.0); MEAN CORPUSCULAR HGB CONC 30.8 g/dl (32.0-37.0); MEAN CORPUSCULAR VOLUME 81.7 fl (82.0-101.0); MEAN PLATELET VOLUME 9.3 fl (7.4-10.4); MONOCYTE # 0.9 10^3/ul (0.3-0.9); NEUTROPHIL # 8.3 10^3/ul (1.6-7.5); NEUTROPHILS % 67.4 % (39.0-77.0); PLATELET COUNT 424 10^3/UL (140-415); RED BLOOD COUNT 5.29 10^6/ul (4.20-5.40); RED CELL DISTRIBUTION WIDTH 14.7 % (11.5-14.5); WHITE BLOOD COUNT 12.4 10^3/ul (4.8-10.8)
--- NOTE | 2017-03-24 01:22 | RADRPT ---
PROCEDURE: Right upper quadrant ultrasound. CLINICAL INDICATION: Abdominal pain. TECHNIQUE: Multiple real-time longitudinal and transverse images of the right upper quadrant of th e abdomen were acquired utilizing a curved array transducer. Images were reviewed on a high-resoluti on PACS workstation. COMPARISON: None. FINDINGS: The pancreas head and body are unremarkable. The pancreas tail is not well seen The liver is normal in echogenicity. The liver measures 17.4 cm in length. No hepatic lesion or in trahepatic biliary ductal dilatation is seen. The portal vein is patent with hepatopetal flow. The patient is status post cholecystectomy. The common bile duct measures 4 mm in diameter, not dila radha. The right kidney measures 10.6 cm in length. Renal echogenicity is normal. There is no hydronephro sis, urinary calculus, or renal mass. The visualized portions of the aorta and IVC are unremarkable. IMPRESSION: 1. Status post cholecystectomy. 2. No biliary dilatation. RPTAT: HTAR .Sushil Griffith MD, MD Date Time Electronically viewed and signed by .Sushil Griffith MD, MD on 03/24/2017 01:21 .R/
[2017-03-24 01:24] LABS: ADD UMIC YES; URINE BILIRUBIN (Dip) NEGATIVE (NEGATIVE); URINE BLOOD (Dip) 3+ (NEGATIVE); URINE COLOR LT. YELLOW (YELLOW); URINE KETONES (Dip) NEGATIVE (NEGATIVE); URINE LEUKOCYTE ESTERASE (Dip) NEGATIVE (NEGATIVE); URINE NITRITE (Dip) NEGATIVE (NEGATIVE); URINE TOTAL PROTEIN (Dip) NEGATIVE (NEGATIVE); URINE UROBILINOGEN (Dip) 1.0 E.U./dL (0.1-1.0)
[2017-03-24 01:27] LABS: ALBUMIN 4.6 g/dl (3.3-4.9); ALBUMIN/GLOBULIN RATIO 1.39; BILIRUBIN,INDIRECT 0.8 mg/dl (0-1.1); BILIRUBIN,TOTAL 0.8 mg/dl (0.2-1.3); CALCIUM 9.4 mg/dl (8.4-10.2); CREATININE 0.51 mg/dl (0.44-1.00); POTASSIUM 4.2 mmol/L (3.5-5.1); TOTAL PROTEIN 7.9 g/dl (6.1-8.1)
[2017-03-24 01:35] LABS: BACTERIA,URINE FEW; SQUAMOUS EPITHELIAL CELL,UR MODERATE
[2017-03-24] MEDS ORDERED: IOHEXOL 300MG/ML 150 ML BTL ONE (02:21)
[2017-03-24] MEDS ORDERED: SOD CHLORIDE 0.9% 100 ML ONE (02:21)
--- NOTE | 2017-03-24 02:38 | RADRPT ---
PROCEDURE: CT Abdomen and pelvis with contrast. CLINICAL INDICATION: Abdominal pain. TECHNIQUE: CT scan of the abdomen and pelvis with contrast was performed on a multi-detector high -resolution CT scanner. The patient was scanned following the uncomplicated administration of 95 cc of Omnipaque 300 intravenous contrast. Coronal and sagittal reformatted images were obtained from the axial source images. Images were reviewed on a high-resolution PACS workstation. One or more of the following dose reduction techniques were used: - Automated exposure control. - Adjustment of the mA and/or kV according to patient size. - Use of iterative reconstruction technique. Exam CTD/vol = 17.26 mGy. Total exam DLP = 1088.50 mGy-cm. COMPARISON: 03/15/2017. FINDINGS: Evaluation of the lung bases demonstrates minimal bibasilar atelectasis. Abdomen: The liver is normal in size with no focal mass identified. The patient is status post cho lecystectomy with mild dilatation of the biliary tree. The spleen, pancreas and bilateral adrenal g lands are within normal limits. Bilateral kidneys are normal in size with symmetric enhancement. T here is no focal mass, hydronephrosis or hydroureter. There is no retroperitoneal adenopathy. The abdominal aorta is of normal caliber. There is prior gastric surgery. There is no bowel obstruction or free air. A normal appendix is id entified. There are scattered colonic diverticuli without evidence of diverticulitis. There is no ascites. Pelvis: The bladder is unremarkable. There is an intrauterine device in place. There is a cystic structure within the left adnexa measuring 3.3 x 2.7 cm. There is no significant pelvic adenopathy or free fluid. Evaluation of the osseous structures demonstrates no suspicious lytic or blastic lesion. There is a defect of the left pars interarticularis of L5. IMPRESSION: Status post cholecystectomy with mild dilatation of the biliary tree. Prior gastric surgery. Scattered colonic diverticuli without evidence of diverticulitis. Left adnexal 3.3 cm cyst. Intrauterine device. Left pars defect of L5. .David Morales MD, MD Date Time Electronically viewed and signed by .David Morales MD, on 03/24/2017 02:38 .T/
[2017-03-24] MEDS ORDERED: ONDA4TAB14 PO (02:48)
[2017-03-24] MEDS ORDERED: MAG-19 PO (02:48)
[2017-03-24] MEDS ORDERED: HYDR-906 PO (02:48)
[2017-03-24] MEDS ORDERED: OMEP20CA16 PO (02:48)
[2017-03-24 02:59] VITALS: BP 133/72; PULSE 88; RESP 20; TEMP 98.1
[2017-03-25] MEDS ORDERED: LURA20TA PO (17:54)
[2017-03-25] MEDS ORDERED: ONDA-43 PO (17:55)
[2017-03-25] MEDS ORDERED: GABA300C16 PO (17:56)
[2017-03-25] MEDS ORDERED: PANT40TA4 PO (17:58)
[2017-03-25] MEDS ORDERED: HYDR-902 PO (17:59)
[2017-03-25] MEDS ORDERED: POLY17PO6 PO (20:05)
[2017-03-25] MEDS ORDERED: NAPR-688 PO (20:05)
[2017-03-25] MEDS ORDERED: ONDA4TAB11 PO (20:05)
[2017-03-25] MEDS ORDERED: MAGN296S40 PO (20:05)
== END 2017-03-24 03:01 | disposition home or self-care (01) ==
LOC: FTE 23:36
DX: R10.13 Epigastric pain (principal); R11.10 Vomiting, unspecified
CPT/HCPCS: 36415; 74177; 76705; 80053; 81001; 83690; 85025; 96374; 96375; 96376; J2270; J2405; J7030; Q9967; Z7502; Z7610; 81003

== ENCOUNTER 2017-03-25 15:47 | Emergency (ER) | payer BC, OTHER ==
[~2017-03-25] VITALS: Ht 162.6 cm; Wt 83.0 kg
[~2017-03-25 15:47] MED LIST changes: +HYDR-906 PO; +MAG-19 PO; +OMEP20CA16 PO; +ONDA4TAB14 PO
[2017-03-25 15:48] VITALS: Ht 162.6 cm; Wt 83.0 kg
[2017-03-25] MEDS ORDERED: ONDANSETRON 4 MG INJ IV STA (16:58)
[2017-03-25] MEDS ORDERED: SOD CHLORIDE 0.9% 1,000 ML IV STA (16:58)
[2017-03-25] MEDS ORDERED: morphine 4 MG/ML VIAL IV STA (16:58)
[2017-03-25 17:26] LABS: ADD SCAN DIFF NO
[2017-03-25 17:28] LABS: BASOPHIL # 0.1 10^3/ul (0.0-0.1); BASOPHILS % 0.6 % (0.0-2.0); EOSINOPHILS # 0.2 10^3/ul (0.0-0.5); EOSINOPHILS % 1.6 % (0.0-7.0); HEMATOCRIT 44.4 % (37.0-47.0); LYMPHOCYTES # 2.6 10^3/ul (0.8-2.9); LYMPHOCYTES % 26.5 % (15.0-51.0); MEAN CORPUSCULAR HEMOGLOBIN 24.9 pg (29.0-33.0); MEAN CORPUSCULAR HGB CONC 31.5 g/dl (32.0-37.0); MEAN PLATELET VOLUME 9.8 fl (7.4-10.4); MONOCYTE # 0.6 10^3/ul (0.3-0.9); MONOCYTES % 6.3 % (0.0-11.0); NEUTROPHIL # 6.5 10^3/ul (1.6-7.5); NEUTROPHILS % 64.8 % (39.0-77.0); PLATELET COUNT 455 10^3/UL (140-415); RED BLOOD COUNT 5.62 10^6/ul (4.20-5.40); RED CELL DISTRIBUTION WIDTH 14.9 % (11.5-14.5)
[2017-03-25 17:45] LABS: INR 0.95; PARTIAL THROMBOPLASTIN TIME 22.9 Sec (25.0-35.0); PROTIME 12.7 Sec (12.2-14.2)
[2017-03-25] MEDS ORDERED: LURA20TA PO (17:54)
[2017-03-25] MEDS ORDERED: ONDA-43 PO (17:55)
[2017-03-25] MEDS ORDERED: GABA300C16 PO (17:56)
[2017-03-25] MEDS ORDERED: PANT40TA4 PO (17:58)
[2017-03-25] MEDS ORDERED: HYDR-902 PO (17:59)
[2017-03-25 18:01] LABS: ADD UMIC YES; URINE BILIRUBIN (Dip) NEGATIVE (NEGATIVE); URINE BLOOD (Dip) 3+ (NEGATIVE); URINE COLOR YELLOW (YELLOW); URINE GLUCOSE (Dip) NEGATIVE (NEGATIVE); URINE KETONES (Dip) TRACE (NEGATIVE); URINE LEUKOCYTE ESTERASE (Dip) NEGATIVE (NEGATIVE); URINE NITRITE (Dip) NEGATIVE (NEGATIVE); URINE TOTAL PROTEIN (Dip) TRACE (NEGATIVE); URINE UROBILINOGEN (Dip) 1.0 E.U./dL (0.1-1.0)
[2017-03-25 18:14] LABS: BACTERIA,URINE FEW
--- NOTE | 2017-03-25 19:02 | RADRPT ---
PROCEDURE: CT abdomen and pelvis without IV contrast. CLINICAL INDICATION: Abdominal pain TECHNIQUE: CT scan of the abdomen and pelvis without contrast was performed on the [employer] volumetric [address] scanner. The patient was scanned without intravenous contrast. Coronal and sagittal refo rmatted images were obtained from the axial source images. The CTDI vol is 15.27 mGy and the DLP is 823.51 mGy-cm. COMPARISON: None. FINDINGS: CT abdomen: The lung bases are clear. The heart size is not enlarged and is without pericardial thickening or e ffusion. The liver is normal in size and density and is without focal mass or intrahepatic biliary dilatation . The spleen is normal in size and homogeneous in density. A prior gastric bypass procedure is seen . An anastomosis sutures are also seen in the proximal small bowel. The pancreas as visualized is n ormal. The gallbladder has been removed. No common bile duct dilatation is seen. The adrenal gland s are symmetric and normal. The kidneys are symmetrically unremarkable as well. No renal calculus or obstructive uropathy or mass lesion is seen. The aorta is of normal in caliber. There is no retroperitoneal lymphadenopathy. The kristen hepatis region is clear. The large bowel is stool-filled. The small and large bowel and mesentery, as visua lized, are otherwise unremarkable. The normal appendix is identified. CT pelvis: An intrauterine device is identified. The pelvic organs are otherwise normal. The pelvic sidewalls and inguinal regions are clear. No pelvic mass, lymphadenopathy, or free fluid is seen. No acute inflammation is seen. The urinary bladder is within normal limits. Degenerative spondylosis of the lumbar spine is seen. A left pars defect is seen at L5-S1. No osteo lytic or osteoblastic lesion is detected. IMPRESSION: 1. No acute pathology in the abdomen and pelvis. 2. Evidence of a prior gastric bypass procedure as well as cholecystectomy. 3. Intrauterine device identified. 4. Stool filled large bowel. RPTAT: HPNM Physician Makayla Date Time Electronically viewed and signed by Physician Makayla on 03/25/2017 19:02 /
[2017-03-25] MEDS ORDERED: DICLOFENAC SODIUM 37.5 MG/ML VIAL IV STA (19:31)
[2017-03-25] MEDS ORDERED: POLY17PO6 PO (20:05)
[2017-03-25] MEDS ORDERED: MAGN296S40 PO (20:05)
[2017-03-25] MEDS ORDERED: NAPR-688 PO (20:05)
[2017-03-25] MEDS ORDERED: ONDA4TAB11 PO (20:05)
--- NOTE | 2017-03-25 20:10 | ERD ---
ER Documentation Chief Complaint Date/Time DATE: 03/25/17 TIME: 20:08 Chief Complaint ABD PAIN AND VOMITING CHRONIC ISSUE AFTER BYPASS SURGERY HPI 31-year-old male comes to the emergency room for acute on chronic abdominal pain and vomiting. She states that she has had pain since she had her bypass surgery in 2012. Pain comes and goes and is a sharp pain. She denies any fevers or chills. Denies dysuria and diarrhea. Usually goes to the emergency room and gets IV medicine. She states that she can get a ride if I want to give her something strong to the IV. She says that [place] away although she has never been to this hospital. ROS All systems reviewed and are negative except as per history of present illness. Medications Home Meds Active Scripts Magnesium Citrate* (Magnesium Citrate*) 296 Ml Solution, 296 ML PO ONCE, #1 BOTTLE Prov:TANIA DICKINSON 03/25/17 Polyethylene Glycol* (Miralax*) 17 Gm Powd.pack, 17 GM PO DAILY, #7 Prov:ALOKTANIAMATT SEVILLA 03/25/17 Ondansetron (Zofran Odt) 4 Mg Tab.rapdis, 4 MG PO Q6, #10 Prov:ALOKSHANNENTANIA DO 03/25/17 Naproxen* (Naproxen*) 500 Mg Tablet, 500 MG PO BID Y for PAIN, #20 TAB Prov:ALOKTANIA DO 03/25/17 Reported Medications Hydrocodone/Acetaminophen ([place] 10-325 Tablet) 1 Each Tablet, 1 EACH PO Q6H, TAB 03/25/17 Pantoprazole* (Pantoprazole*) 40 Mg Tablet.dr, 40 MG PO AC BREAKFAST DINNER, TAB 03/25/17 Gabapentin* (Gabapentin*) 300 Mg Capsule, 900 MG PO QHS, #90 CAP 03/25/17 Ondansetron Hcl* (Zofran*) 4 Mg Tab, 4 MG PO Q4H Y for NAUSEA AND OR VOMITING, TAB 03/25/17 Lurasidone Hcl (LATUDA) 20 Mg Tablet, 20 MG PO QHS, #30 TAB 03/25/17 Allergies Allergies: Coded Allergies: No Known Allergy (Unverified , 03/25/17) PMhx/Soc Hx Miscellaneous Medical Probl: Yes (gastric bypass) Hx Alcohol Use: No Hx Substance Use: No Hx Tobacco Use: No Smoking Status: Unknown if ever smoked Physical Exam Vitals Vital Signs Date Time Temp Pulse Resp B/P Pulse Ox O2 Delivery O2 Flow Rate FiO2 03/25/17 20:18 18 132/84 03/25/17 15:48 99.0 108 19 137/93 99 Physical Exam Const: [] Head: Atraumatic Eyes: Normal Conjunctiva ENT: Normal External Ears, Nose and Mouth. Neck: Full range of motion..~ No meningismus. Resp: Clear to auscultation bilaterally Cardio: Regular rate and rhythm, no murmurs Abd: Soft, non tender, non distended. Normal bowel sounds Skin: No petechiae or rashes Back: No midline or flank tenderness Ext: No cyanosis, or edema Neur: Awake and alert Psych: Normal Mood and Affect Result Diagram: 03/25/170 03/25/171954 Results 24 hrs Laboratory Tests Test 03/25/17 17:00 03/25/17 17:30 03/25/17 19:55 White Blood Count 10.010^3/ul Red Blood Count 5.6210^6/ul Hemoglobin 14.0g/dl Hematocrit 44.4% Mean Corpuscular Volume 79.0fl Mean Corpuscular Hemoglobin 24.9pg Mean Corpuscular Hemoglobin Concent 31.5g/dl Red Cell Distribution Width 14.9% Platelet Count 90568^3/UL Mean Platelet Volume 9.8fl Neutrophils % 64.8% Lymphocytes % 26.5% Monocytes % 6.3% Eosinophils % 1.6% Basophils % 0.6% Nucleated Red Blood Cells % 0.0/100WBC Neutrophils # 6.510^3/ul Lymphocytes # 2.610^3/ul Monocytes # 0.610^3/ul Eosinophils # 0.210^3/ul Basophils # 0.110^3/ul Nucleated Red Blood Cells # 0.010^3/ul Prothrombin Time 12.7Sec Prothrombin Time Ratio 1.0 INR International Normalized Ratio 0.95 Activated Partial Thromboplast Time 22.9Sec Urine Color YELLOW Urine Clarity CLEAR Urine pH 5.5 Urine Specific [place] >=1.030 Urine Ketones TRACE Urine Nitrite NEGATIVE Urine Bilirubin NEGATIVE Urine Urobilinogen 1.0 E.U./dL Urine Leukocyte Esterase NEGATIVE Urine Microscopic RBC 2-5/HPF Urine Microscopic WBC 0-2/HPF Urine Bacteria FEW Urine Hemoglobin 3+ Urine Glucose NEGATIVE% Urine Total Protein TRACE Sodium Level 135mmol/L Potassium Level 3.7mmol/L Chloride Level 99mmol/L Carbon Dioxide Level 23mmol/L Anion Gap 17 Blood Urea Nitrogen 7mg/dl Creatinine 0.45mg/dl Glucose Level 129mg/dl Lactic Acid Level 2.2mmol/L Calcium Level 8.7mg/dl Total Bilirubin 0.9mg/dl Direct Bilirubin 0.00mg/dl Indirect Bilirubin 0.9mg/dl Aspartate Amino Transf (AST/SGOT) 19IU/L Alanine Aminotransferase (ALT/SGPT) 30IU/L Alkaline Phosphatase 64IU/L Total Protein 7.0g/dl Albumin 3.8g/dl Globulin 3.20g/dl Albumin/Globulin Ratio 1.18 Lipase 51U/L Current Medications Medications (Trade) Dose Ordered Sig/Hi Route PRN Reason Start Time Stop Time Status Last Admin Dose Admin Sodium Chloride (NS) 1,000 ml @ 1,000 mls/hr Q1H STAT IV 03/25/17 16:58 03/25/17 17:57 DC 03/25/17 17:30 Morphine Sulfate (morphine) 4 mg ONCE STAT IV 03/25/17 16:58 03/25/17 17:00 DC 03/25/17 18:00 Ondansetron HCl (Zofran Inj) 4 mg ONCE STAT IV 03/25/17 16:58 03/25/17 17:00 DC 03/25/17 17:30 Diclofenac Sodium (Dyloject) 37.5 mg ONCE STAT IV 03/25/17 19:31 03/25/17 19:32 DC 03/25/17 19:50 Procedures/MDM Patient with abdominal pain with a CT positive for constipation. No other acute process is seen. She is given a liter of normal saline as well as Zofran and morphine which resolved her symptoms. Stated she had some return of pain was then given IV diclofenac. Patient has no elevated white count and indicate infection. She has a benign physical exam. I am going to discharge her with medication for constipation including naproxen for pain and Zofran for nausea. Recommending that she follow-up with her primary care doctor in 2-3 days and return the emergency room for any concerning changes. CT abdomen pelvis interpretation: Retained stool throughout colon consistent with constipation, no free air, no abnormal fat stranding, history of prior gastric bypass surgery, no fractures Ultrasound-guided peripheral IV note: Because staff was unable to obtain any vascular access and perform this procedure. Left upper arm was cleaned with alcohol wipe. Ultrasound guidance was used to guide an 18-gauge Angiocath into the left basilic vein. Patient taught the procedure with no complications. There was good blood flow Cholesterol. Laboratories were able to be obtained from As well as medication given. Departure Diagnosis: Primary Impression: Nausea and vomiting Additional Impressions: Abdominal pain Constipation Condition: Stable Patient Instructions: Abdominal Pain, Treating Constipation Additional Instructions: Call your primary care doctor TOMORROW for an appointment during the next 2-3 days.See the doctor sooner or return here if your condition worsens before your appointment time. TANIA DICKINSON DO March 25, 2017 20:10
[2017-03-25 20:20] LABS: ALBUMIN 3.8 g/dl (3.3-4.9); POTASSIUM 3.7 mmol/L (3.5-5.1)
[2017-03-25 20:22] LABS: BILIRUBIN,INDIRECT 0.9 mg/dl (0-1.1); BILIRUBIN,TOTAL 0.9 mg/dl (0.2-1.3); CREATININE 0.45 mg/dl (0.44-1.00)
[2017-03-25 20:23] LABS: ALBUMIN/GLOBULIN RATIO 1.18; CALCIUM 8.7 mg/dl (8.4-10.2)
[2017-03-25 20:43] VITALS: BP 133/89; PULSE 89; RESP 18; TEMP 98.1
== END 2017-03-25 20:43 | disposition home or self-care (01) ==
LOC: MERGE 15:47 → E/R 15:47
DX: R11.2 Nausea with vomiting, unspecified (principal); K59.00 Constipation, unspecified
CPT/HCPCS: 36415; 74176; 80053; 81001; 83605; 83690; 85025; 85610; 85730; 96374; 96375; J2270; J2405; J7030; Z7502; Z7610; 81003

== ENCOUNTER 2017-03-27 02:51 | Emergency (ER) | payer OTHER ==
[~2017-03-27] VITALS: Ht 162.6 cm; Wt 84.0 kg
[~2017-03-27 02:51] MED LIST changes: +GABA300C16 PO; +HYDR-902 PO; +MAGN296S40 PO; +NAPR-688 PO; +ONDA-43 PO; +ONDA4TAB11 PO; +PANT40TA4 PO; +POLY17PO6 PO
[2017-03-27 02:55] VITALS: Ht 162.6 cm; Wt 84.0 kg
[2017-03-27] MEDS ORDERED: ACETAMINOPHEN 325 MG TAB PO ONE (03:30)
[2017-03-27] MEDS ORDERED: KETOROLAC 30 MG INJ IM STA (03:55)
[2017-03-27 03:56] LABS: ADD UMIC YES; URINE BILIRUBIN (Dip) NEGATIVE (NEGATIVE); URINE BLOOD (Dip) 1+ (NEGATIVE); URINE COLOR LT. RED (YELLOW); URINE GLUCOSE (Dip) NEGATIVE (NEGATIVE); URINE KETONES (Dip) NEGATIVE (NEGATIVE); URINE LEUKOCYTE ESTERASE (Dip) NEGATIVE (NEGATIVE); URINE NITRITE (Dip) NEGATIVE (NEGATIVE); URINE TOTAL PROTEIN (Dip) NEGATIVE (NEGATIVE); URINE UROBILINOGEN (Dip) 0.2 E.U./dL (0.1-1.0)
[2017-03-27] MEDS ORDERED: TYL500 PO (03:57)
[2017-03-27] MEDS ORDERED: BISA10SU55 RC (03:57)
[2017-03-27] MEDS ORDERED: DIPHENHYDRAMINE 25 MG CAP PO ONE (04:00)
[2017-03-27 04:12] LABS: BACTERIA,URINE RARE; SQUAMOUS EPITHELIAL CELL,UR FEW; URINE RBCS 0-2 /HPF (0)
--- NOTE | 2017-03-27 04:24 | ERD ---
ER Documentation Chief Complaint Date/Time DATE: 03/27/17 TIME: 04:18 Chief Complaint abd burning pain HPI 31-year-old female complains of burning abdominal pain across her whole abdomen. Says that this pain is actually chronic and comes and goes. Denies nausea vomiting fever chills. States that she is trying the laxatives I prescribed her last time but had not had many bowel movements yet I saw this patient in the ER 3 days ago. She has a history of Gastric bypass surgery so at that point I did a full workup including CAT scan. Workup was negative for anything for constipation. ROS All systems reviewed and are negative except as per history of present illness. Medications Home Meds Active Scripts Acetaminophen* (Tylenol*) 500 Mg Tab, 500 MG PO Q4H Y for MILD PAIN LEVEL 1-3, # 14 TAB Prov:ALOKTANIA 03/27/17 Bisacodyl (Dulcolax) 10 Mg Supp.rect, 10 MG RC Q8, #30 SUPP.RECT Prov:ALOKTANIA DO 03/27/17 Magnesium Citrate* (Magnesium Citrate*) 296 Ml Solution, 296 ML PO ONCE, #1 BOTTLE Prov:TANIA DICKINSON 03/25/17 Polyethylene Glycol* (Miralax*) 17 Gm Powd.pack, 17 GM PO DAILY, #7 Prov:ALOKTANIA 03/25/17 Ondansetron (Zofran Odt) 4 Mg Tab.rapdis, 4 MG PO Q6, #10 Prov:ALOKTANIA 03/25/17 Naproxen* (Naproxen*) 500 Mg Tablet, 500 MG PO BID Y for PAIN, #20 TAB Prov:ALOKTANIAMATT SEVILLA 03/25/17 Hydrocodone/Acetaminophen ([place] 5-325 Tablet) 1 Each Tablet, 1 TAB PO Q6H Y for SEVERE PAIN LEVEL 7-10, #7 TAB Prov:SERGEY NATION NP 03/24/17 Omeprazole* (Omeprazole*) 20 Mg Capsule.dr, 20 MG PO DAILY, #30 Prov:SERGEY NATION NP 03/24/17 Ondansetron (Ondansetron Odt) 4 Mg Tab.rapdis, 4 MG PO Q8 Y for NAUSEA AND/OR VOMITING, #30 TAB Prov:SERGEY NATION [employer] 03/24/17 Magaldrate/Simethicone* (Mylanta*) 355 Ml Susp, 30 ML PO QID Y for GASTROINTESTINAL UPSET, #1 BOTTLE Prov:HERMESDEMARIOSERGEY COOPER [employer] WORK[employer] 03/24/17 Diphenhydramine Hcl* (Benadryl*) 50 Mg Cap, 50 MG PO Q6 Y for ANXIETY, #15 CAP Prov:MARILU REISYrn [employer]EL WORKER 03/17/17 Reported Medications Hydrocodone/Acetaminophen ([place] 10-325 Tablet) 1 Each Tablet, 1 EACH PO Q6H, TAB 03/25/17 Pantoprazole* (Pantoprazole*) 40 Mg Tablet.dr, 40 MG PO AC BREAKFAST DINNER, TAB 03/25/17 Gabapentin* (Gabapentin*) 300 Mg Capsule, 900 MG PO QHS, #90 CAP 03/25/17 Ondansetron Hcl* (Zofran*) 4 Mg Tab, 4 MG PO Q4H Y for NAUSEA AND OR VOMITING, TAB 03/25/17 Lurasidone Hcl (LATUDA) 20 Mg Tablet, 20 MG PO QHS, #30 TAB 03/25/17 Calcium Carbonate/Vitamin D3 (Calcium 500+D Tablet Chew) 1 Each Tab.chew, 1 EACH PO BID, TAB.CHEW 03/15/17 Quetiapine Fumarate* (Seroquel*) 25 Mg Tablet, 25 MG PO HS, #30 TAB 03/15/17 Lamotrigine* (Lamotrigine* CHEW) 25 Mg Tab.disper, 50 MG PO QHS, TAB 03/15/17 Lurasidone Hcl (LATUDA) 20 Mg Tablet, 20 MG PO QHS, #30 TAB 03/15/17 Alprazolam* (Xanax*) 2 Mg Tablet, 2 MG PO BID Y for ANXIETY, TAB 03/15/17 Allergies Allergies: Coded Allergies: ibuprofen (Verified Allergy, Unknown, 03/15/17) tramadol (Verified Allergy, Unknown, 03/15/17) PMhx/Soc History of Surgery: Yes (GASTRIC BYPASS) Anesthesia Reaction: No Hx Neurological Disorder: No Hx Respiratory Disorders: No Hx Cardiac Disorders: No Hx Psychiatric Problems: Yes (ANXIETY) Hx Miscellaneous Medical Probl: No Hx Alcohol Use: No Hx Substance Use: No Hx Tobacco Use: No Smoking Status: Never smoker Physical Exam Vitals Vital Signs Date Time Temp Pulse Resp B/P Pulse Ox O2 Delivery O2 Flow Rate FiO2 03/27/17 02:55 99.0 96 18 150/98 97 Physical Exam Const: [] No distress Head: Atraumatic Eyes: Normal Conjunctiva ENT: Normal External Ears, Nose and Mouth. Neck: Full range of motion..~ No meningismus. Abd: Soft, non tender, non distended. Normal bowel sounds Skin: No petechiae or rashes Ext: No cyanosis, or edema Neur: Awake and alert and oriented 3, no focal deficits Psych: Normal Mood and Affect Results 24 hrs Laboratory Tests Test 03/27/17 03:30 Urine Color LT. RED Urine Clarity CLEAR Urine pH 5.5 Urine Specific [place] 1.020 Urine Ketones NEGATIVE Urine Nitrite NEGATIVE Urine Bilirubin NEGATIVE Urine Urobilinogen 0.2 E.U./dL Urine Leukocyte Esterase NEGATIVE Urine Microscopic RBC 0-2/HPF Urine Microscopic WBC NONE SEEN/HPF Urine Squamous Epithelial Cells FEW Urine Bacteria RARE Urine Hemoglobin 1+ Urine Glucose NEGATIVE% Urine Total Protein NEGATIVE Current Medications Medications (Trade) Dose Ordered Sig/Hi Route PRN Reason Start Time Stop Time Status Last Admin Dose Admin Acetaminophen (Tylenol Tab) 650 mg ONCE ONCE PO 03/27/17 03:30 03/27/17 03:31 DC 03/27/17 03:22 Ketorolac Tromethamine (Toradol) 30 mg ONCE STAT IM 03/27/17 03:55 03/27/17 03:56 DC 03/27/17 04:01 Diphenhydramine HCl (Benadryl) 25 mg ONCE ONCE PO 03/27/17 04:00 03/27/17 04:01 DC 03/27/17 04:01 Procedures/MDM Abdominal pain likely secondary to constipation versus other. Patient does demonstrate drug-seeking behavior. When I told her I would not give her narcotics as I do not want to exacerbate her constipation she then asked if I can give her a shot for her anxiety. I told her I would not give her narcotics she then said that she would just like an injection of Benadryl. I am adding Dulcolax suppositories to her constipation regimen at home. She was given a shot of Toradol in the ER. I am discharging her with Tylenol as well. Primary care follow-up in 2-3 days. Return to ER for any increasing symptoms. Departure Diagnosis: Primary Impression: Constipation Additional Impressions: Abdominal pain Drug-seeking behavior Condition: Stable Patient Instructions: Abdominal Pain, Constipation (Adult) Additional Instructions: Call your primary care doctor TOMORROW for an appointment during the next 1-2 days.See the doctor sooner or return here if your condition worsens before your appointment time. TANIA DICKINSON DO March 27, 2017 04:24
[2017-03-27 04:27] VITALS: BP 142/93; PULSE 81; RESP 18; TEMP 98.2
== END 2017-03-27 04:28 | disposition home or self-care (01) ==
LOC: E/R 02:51
DX: K59.00 Constipation, unspecified (principal); Z72.89 Other problems related to lifestyle
CPT/HCPCS: 81001; 96372; J1885; Z7502; Z7610; 81003

== ENCOUNTER 2017-05-03 00:46 | Emergency (ER) | payer OTHER ==
[~2017-05-03] VITALS: Ht 167.6 cm; Wt 86.5 kg
[~2017-05-03 00:46] MED LIST changes: +BISA10SU55 RC; +TYL500 PO
[2017-05-03 00:49] VITALS: Ht 167.6 cm; Wt 86.5 kg
[2017-05-03] MEDS ORDERED: SOD CHLORIDE 0.9% 1,000 ML IV STA (02:28)
[2017-05-03] MEDS ORDERED: FAMOTIDINE 20 MG TAB PO STA (02:28)
[2017-05-03] MEDS ORDERED: ONDANSETRON 4 MG INJ IV STA ×2 (02:28→05:11)
[2017-05-03] MEDS ORDERED: DICLOFENAC SODIUM 37.5 MG/ML VIAL IV STA (02:28)
[2017-05-03 02:38] LABS: URINE BLOOD (Dip) POC 1+ (NEGATIVE)
[2017-05-03] MEDS ORDERED: TRIMETHOBENZAMIDE 100 MG/ML VIAL IM ONE (03:00)
[2017-05-03] MEDS ORDERED: METOCLOPRAMIDE 10 MG INJ IV ONE (03:00)
[2017-05-03 03:22] LABS: ADD SCAN DIFF NO
[2017-05-03 03:25] LABS: BASOPHIL # 0.1 10^3/ul (0.0-0.1); BASOPHILS % 0.6 % (0.0-2.0); EOSINOPHILS # 0.1 10^3/ul (0.0-0.5); EOSINOPHILS % 0.7 % (0.0-7.0); HEMATOCRIT 40.8 % (37.0-47.0); HEMOGLOBIN 11.9 g/dl (12.0-16.0); LYMPHOCYTES # 1.9 10^3/ul (0.8-2.9); LYMPHOCYTES % 17.7 % (15.0-51.0); MEAN CORPUSCULAR HEMOGLOBIN 24.1 pg (29.0-33.0); MEAN CORPUSCULAR HGB CONC 29.2 g/dl (32.0-37.0); MEAN CORPUSCULAR VOLUME 82.6 fl (82.0-101.0); MEAN PLATELET VOLUME 9.6 fl (7.4-10.4); MONOCYTE # 0.5 10^3/ul (0.3-0.9); MONOCYTES % 4.5 % (0.0-11.0); NEUTROPHIL # 8.1 10^3/ul (1.6-7.5); NEUTROPHILS % 76.1 % (39.0-77.0); PLATELET COUNT 153 10^3/UL (140-415); RED BLOOD COUNT 4.94 10^6/ul (4.20-5.40); RED CELL DISTRIBUTION WIDTH 15.1 % (11.5-14.5); WHITE BLOOD COUNT 10.7 10^3/ul (4.8-10.8)
[2017-05-03 03:34] LABS: ADD UMIC YES; UR AMORPHOUS CRYSTAL MANY /HPF (NONE SEEN); UR ASCORBIC ACID 40 mg/dL (NEGATIVE); UR BILIRUBIN (Dip) NEGATIVE (NEGATIVE); UR BLOOD (Dip) NEGATIVE (NEGATIVE); UR CLARITY TURBID (CLEAR); UR COLOR RED (YELLOW); UR GLUCOSE (Dip) 1+ mg/dL (NEGATIVE); UR KETONES (Dip) TRACE mg/dL (NEGATIVE); UR LEUKOCYTE ESTERASE (Dip) NEGATIVE Leu/ul (NEGATIVE); UR NITRITE (Dip) NEGATIVE (NEGATIVE); UR RBC 3 /HPF (0-5); UR SPECIFIC GRAVITY (Dip) 1.031 (1.003-1.030); UR TOTAL PROTEIN (Dip) 1+ mg/dl (NEGATIVE); UR UROBILINOGEN (Dip) NEGATIVE (NEGATIVE)
[2017-05-03 03:55] LABS: ALBUMIN 4.8 g/dl (3.3-4.9); ALBUMIN/GLOBULIN RATIO 1.5; BILIRUBIN,INDIRECT 0.4 mg/dl (0-1.1); BILIRUBIN,TOTAL 0.4 mg/dl (0.2-1.3); CALCIUM 9.5 mg/dl (8.4-10.2); CREATININE 0.55 mg/dl (0.44-1.00); POTASSIUM 4.2 mmol/L (3.5-5.1)
[2017-05-03] MEDS ORDERED: ONDA4TAB14 PO (05:01)
[2017-05-03] MEDS ORDERED: MAGN296S40 PO (05:01)
--- NOTE | 2017-05-03 05:06 | ERD ---
ER Documentation Chief Complaint Date/Time DATE: 05/03/17 TIME: 05:02 Chief Complaint diffuse abd pain w/ vomiting x 3 days, hx- gastric bypass 2013 HPI This 31-year-old female presents emergency room complaining of abdominal pain across her entire abdomen as well as nausea and a couple episodes of vomiting over the last 3 days. She always states that she has a history of gastric bypass in 2012. I seen on multiple previous occasions. The diagnosis is been constipation on more than one occasion. She is requesting narcotic pain medication and IV Benadryl. ROS All systems reviewed and are negative except as per history of present illness. Medications Home Meds Active Scripts Ondansetron (Ondansetron Odt) 4 Mg Tab.rapdis, 4 MG PO Q6H Y for NAUSEA AND/OR VOMITING, #10 TAB Prov:TANIA DICKINSON DO 05/03/17 Magnesium Citrate* (Magnesium Citrate*) 296 Ml Solution, 296 ML PO ONCE, #1 BOTTLE Prov:TANIA DICKINSON 05/03/17 Acetaminophen* (Tylenol*) 500 Mg Tab, 500 MG PO Q4H Y for MILD PAIN LEVEL 1-3, # 14 TAB Prov:TANIA DICKINSON 03/27/17 Bisacodyl (Dulcolax) 10 Mg Supp.rect, 10 MG RC Q8, #30 SUPP.RECT Prov:TANIA DICKINSON 03/27/17 Magnesium Citrate* (Magnesium Citrate*) 296 Ml Solution, 296 ML PO ONCE, #1 BOTTLE Prov:TANIA DICKINSON 03/25/17 Polyethylene Glycol* (Miralax*) 17 Gm Powd.pack, 17 GM PO DAILY, #7 Prov:ALOKTANIA 03/25/17 Ondansetron (Zofran Odt) 4 Mg Tab.rapdis, 4 MG PO Q6, #10 Prov:TANIA DICKINSON DO 03/25/17 Naproxen* (Naproxen*) 500 Mg Tablet, 500 MG PO BID Y for PAIN, #20 TAB Prov:TANIA DICKINSON 03/25/17 Hydrocodone/Acetaminophen ([place] 5-325 Tablet) 1 Each Tablet, 1 TAB PO Q6H Y for SEVERE PAIN LEVEL 7-10, #7 TAB Prov:SERGEY NATION NP 03/24/17 Omeprazole* (Omeprazole*) 20 Mg Capsule., 20 MG PO DAILY, #30 Prov:SERGEY NATION SHOESHINER 03/24/17 Ondansetron (Ondansetron Odt) 4 Mg Tab.rapdis, 4 MG PO Q8 Y for NAUSEA AND/OR VOMITING, #30 TAB Prov:SERGEY NATION SHOESHINER 03/24/17 Magaldrate/Simethicone* (Mylanta*) 355 Ml Susp, 30 ML PO QID Y for GASTROINTESTINAL UPSET, #1 BOTTLE Prov:SERGEY NATION SHOESHINER 03/24/17 Diphenhydramine Hcl* (Benadryl*) 50 Mg Cap, 50 MG PO Q6 Y for ANXIETY, #15 CAP Prov:MARILU REIS SHOESHINER 03/17/17 Reported Medications Hydrocodone/Acetaminophen ([place] 10-325 Tablet) 1 Each Tablet, 1 EACH PO Q6H, TAB 03/25/17 Pantoprazole* (Pantoprazole*) 40 Mg Tablet.dr, 40 MG PO AC BREAKFAST DINNER, TAB 03/25/17 Gabapentin* (Gabapentin*) 300 Mg Capsule, 900 MG PO QHS, #90 CAP 03/25/17 Ondansetron Hcl* (Zofran*) 4 Mg Tab, 4 MG PO Q4H Y for NAUSEA AND OR VOMITING, TAB 03/25/17 Lurasidone Hcl (LATUDA) 20 Mg Tablet, 20 MG PO QHS, #30 TAB 03/25/17 Calcium Carbonate/Vitamin D3 (Calcium 500+D Tablet Chew) 1 Each Tab.chew, 1 EACH PO BID, TAB.CHEW 03/15/17 Quetiapine Fumarate* (Seroquel*) 25 Mg Tablet, 25 MG PO HS, #30 TAB 03/15/17 Lamotrigine* (Lamotrigine* CHEW) 25 Mg Tab.disper, 50 MG PO QHS, TAB 03/15/17 Lurasidone Hcl (LATUDA) 20 Mg Tablet, 20 MG PO QHS, #30 TAB 03/15/17 Alprazolam* (Xanax*) 2 Mg Tablet, 2 MG PO BID Y for ANXIETY, TAB 03/15/17 Allergies Allergies: Coded Allergies: ibuprofen (Verified Allergy, Unknown, 03/15/17) tramadol (Verified Allergy, Unknown, 03/15/17) PMhx/Soc History of Surgery: Yes (GASTRIC BYPASS, CHOLECYSTECTOMY) Anesthesia Reaction: No Hx Neurological Disorder: No Hx Respiratory Disorders: No Hx Cardiac Disorders: No Hx Psychiatric Problems: Yes (ANXIETY) Hx Miscellaneous Medical Probl: No Hx Alcohol Use: No Hx Substance Use: No Hx Tobacco Use: No Smoking Status: Never smoker Physical Exam Vitals Vital Signs Date Time Temp Pulse Resp B/P Pulse Ox O2 Delivery O2 Flow Rate FiO2 05/03/17 02:20 98.7 86 20 140/92 100 Room Air 05/03/17 00:49 98.7 115 20 131/72 100 Physical Exam Const: [] No distress Head: Atraumatic Eyes: Normal Conjunctiva ENT: Normal External Ears, Nose and Mouth. Neck: Full range of motion..~ No meningismus. Resp: Clear to auscultation bilaterally Cardio: Regular rate and rhythm, no murmurs Abd: Soft, very mild diffuse tenderness without guarding or rebound, tenderness disappears on distraction during of the conversation, non distended. Normal bowel sounds Skin: No petechiae or rashes Back: No midline or flank tenderness Ext: No cyanosis, or edema Neur: Awake and alert and oriented 3, no focal deficits. Psych: Normal Mood and Affect Result Diagram: 05/03/17 0250 05/03/17 0250 Results 24 hrs Laboratory Tests Test 05/03/17 02:41 05/03/17 02:50 Bedside Urine pH (LAB) 5.5 Bedside Urine Protein (LAB) 1+ Bedside Urine Glucose (UA) Negative Bedside Urine Ketones (LAB) Negative Bedside Urine Blood 1+ Bedside Urine Nitrite (LAB) Negative Bedside Urine Leukocyte Esterase (L Negative White Blood Count 10.710^3/ul Red Blood Count 4.9410^6/ul Hemoglobin 11.9g/dl Hematocrit 40.8% Mean Corpuscular Volume 82.6fl Mean Corpuscular Hemoglobin 24.1pg Mean Corpuscular Hemoglobin Concent 29.2g/dl Red Cell Distribution Width 15.1% Platelet Count 99616^3/UL Mean Platelet Volume 9.6fl Neutrophils % 76.1% Lymphocytes % 17.7% Monocytes % 4.5% Eosinophils % 0.7% Basophils % 0.6% Nucleated Red Blood Cells % 0.0/100WBC Neutrophils # 8.110^3/ul Lymphocytes # 1.910^3/ul Monocytes # 0.510^3/ul Eosinophils # 0.110^3/ul Basophils # 0.110^3/ul Nucleated Red Blood Cells # 0.010^3/ul Urine Color RED Urine Clarity TURBID Urine pH 5.0 Urine Specific [place] 1.031 Urine Ketones TRACEmg/dL Urine Nitrite NEGATIVEmg/dL Urine Bilirubin NEGATIVEmg/dL Urine Urobilinogen NEGATIVEmg/dL Urine Leukocyte Esterase NEGATIVELeu/ul Urine Microscopic RBC 3/HPF Urine Microscopic WBC 12/HPF Urine Amorphous Crystals MANY/HPF Urine Hemoglobin NEGATIVEmg/dL Urine Glucose 1+mg/dL Urine Total Protein 1+mg/dl Sodium Level 144mmol/L Potassium Level 4.2mmol/L Chloride Level 108mmol/L Carbon Dioxide Level 21mmol/L Anion Gap 19 Blood Urea Nitrogen 13mg/dl Creatinine 0.55mg/dl Glucose Level 96mg/dl Calcium Level 9.5mg/dl Total Bilirubin 0.4mg/dl Direct Bilirubin 0.00mg/dl Indirect Bilirubin 0.4mg/dl Aspartate Amino Transf (AST/SGOT) 21IU/L Alanine Aminotransferase (ALT/SGPT) 27IU/L Alkaline Phosphatase 95IU/L Total Protein 8.0g/dl Albumin 4.8g/dl Globulin 3.20g/dl Albumin/Globulin Ratio 1.50 Lipase 175U/L Serum HCG, Qualitative NEGATIVE Current Medications Medications (Trade) Dose Ordered Sig/Hi Route PRN Reason Start Time Stop Time Status Last Admin Dose Admin Sodium Chloride (NS) 1,000 ml @ 1,000 mls/hr Q1H STAT IV 05/03/17 02:28 05/03/17 03:27 DC 05/03/17 02:47 Ondansetron HCl (Zofran Inj) 4 mg ONCE STAT IV 05/03/17 02:28 05/03/17 02:30 DC 05/03/17 02:47 Famotidine (Pepcid) 20 mg ONCE STAT PO 05/03/17 02:28 05/03/17 02:30 DC Diclofenac Sodium (Dyloject) 37.5 mg ONCE STAT IV 05/03/17 02:28 05/03/17 02:30 DC Metoclopramide HCl (Reglan) 10 mg ONCE ONCE IV 05/03/17 03:00 05/03/17 03:01 DC 05/03/17 02:47 Trimethobenzamide HCl (Tigan) 200 mg ONCE ONCE IM 05/03/17 03:00 05/03/17 03:01 DC 05/03/17 02:59 Procedures/MDM Patient with retained stool on x-ray abdominal pain nausea and vomiting. She demonstrated signs of drug-seeking behavior requesting various IV narcotics and Benadryl. States that she is allergic to anything else or cannot take it. She was given Tigan as well as Zofran for her nausea. This did resolve her nausea. She was sleeping for most of her ER visit. She has constipation I do not want to give her narcotic pain medication for that and there is no indication for IV Benadryl. We are to discharge with primary care follow-up. There are no signs of any serious bacterial infection. Abdominal x-ray interpretation: Retained stool throughout colon. No obstruction , no free air, no fractures Departure Diagnosis: Primary Impression: Constipation Additional Impression: Abdominal pain Condition: Stable Patient Instructions: Abdominal Pain, Constipation (Adult) Additional Instructions: Call your primary care doctor TOMORROW for an appointment during the next 2-3 days.See the doctor sooner or return here if your condition worsens before your appointment time. TANIA DICKINSON DO May 03, 2017 05:06
[2017-05-03 05:25] VITALS: BP 135/88; PULSE 82; RESP 20; TEMP 98.7
--- NOTE | 2017-05-03 06:14 | RADRPT ---
PROCEDURE: ABDOMINAL - 3 VIEWS CLINICAL INDICATION: 31-year-old female with abdominal pain. TECHNIQUE: AP supine and upright views of the abdomen were obtained portably. The images review ed on a PACS workstation. COMPARISON: CT abdomen/pelvis March 24, 2017. FINDINGS: The lung bases are unremarkable. There is no free air beneath the hemidiaphragms. Surgical clips ar e identified within the right upper quadrant from prior cholecystectomy. Surgical clips are seen wi thin the left upper quadrant from prior gastric surgery. There is mild retained stool identified wi thin the colon without gross bowel obstruction. There is an intrauterine device within the pelvis. Thoracolumbar scoliosis is present. IMPRESSION: 1. Mild retained stool without evidence for bowel obstruction. 2. Status post cholecystectomy. 3. Prior gastric surgery. 4. Intrauterine device. 5. Thoracolumbar scoliosis. .Jed Wynne MD, Date Time Electronically viewed and signed by .Jed Wynne MD, on 05/03/2017 06:13 .M/
== END 2017-05-03 05:26 | disposition home or self-care (01) ==
LOC: E/R 00:46
DX: K59.00 Constipation, unspecified (principal); R11.2 Nausea with vomiting, unspecified
CPT/HCPCS: 36415; 74010; 80053; 81001; 83690; 84703; 85025; 96372; 96374; 96375; 96376; J2405; J2765; J3250; J7030; Z7502; Z7610; 81003

== ENCOUNTER 2017-06-26 21:43 | Emergency (ER) | payer OTHER ==
[~2017-06-26] VITALS: Ht 162.6 cm; Wt 84.1 kg
[2017-06-26 22:46] VITALS: Ht 162.6 cm; Wt 84.1 kg
[2017-06-26] MEDS ORDERED: ONDANSETRON (ODT) 4 MG TAB ODT STA (23:53)
[2017-06-27] MEDS ORDERED: FAMOTIDINE 20 MG TAB PO ONE
[2017-06-27] MEDS ORDERED: LIDOCAINE/MYLANTA 40 ML BTL PO ONE
[2017-06-27] MEDS ORDERED: morphine 10 MG INJ IM ONE (01:00)
[2017-06-27] MEDS ORDERED: DIPHENHYDRAMINE 50 MG INJ IV ONE (03:30)
--- NOTE | 2017-06-27 03:30 | ERD ---
ER Documentation Chief Complaint Date/Time DATE: 06/27/17 TIME: 03:26 Chief Complaint ate shrimp & had stomach upset, anxious that her glucose is fluctuating,too HPI This is a 31-year-old female with past medical history for hypoglycemia, and gastric bypass surgery, presenting to emergency department for abdominal pain, nausea, vomiting and anxiety. Patient states earlier today she ate shrimp and soon after she developed nausea, vomiting and abdominal pain. Patient states she has frequent episodes of chronic vomiting and nausea after her gastric bypass surgery in 2012. Patient had 2 episodes of nonbloody nonbilious emesis after eating earlier. Patient also states that she was recently diagnosed with hypoglycemia and is concerned about her fluctuating blood sugars. ROS All systems reviewed and are negative except as per history of present illness. Medications Home Meds Active Scripts Ondansetron (Ondansetron Odt) 4 Mg Tab.rapdis, 4 MG PO Q6H Y for NAUSEA AND/OR VOMITING, #10 TAB Prov:ALOKTANIA 05/03/17 Magnesium Citrate* (Magnesium Citrate*) 296 Ml Solution, 296 ML PO ONCE, #1 BOTTLE Prov:ALOKTANIA 05/03/17 Acetaminophen* (Tylenol*) 500 Mg Tab, 500 MG PO Q4H Y for MILD PAIN LEVEL 1-3, # 14 TAB Prov:ALOKTANIA 03/27/17 Bisacodyl (Dulcolax) 10 Mg Supp.rect, 10 MG RC Q8, #30 SUPP.RECT Prov:ALOKTANIA 03/27/17 Magnesium Citrate* (Magnesium Citrate*) 296 Ml Solution, 296 ML PO ONCE, #1 BOTTLE Prov:ALOKTANIA 03/25/17 Polyethylene Glycol* (Miralax*) 17 Gm Powd.pack, 17 GM PO DAILY, #7 Prov:ALOKTANIA 03/25/17 Ondansetron (Zofran Odt) 4 Mg Tab.rapdis, 4 MG PO Q6, #10 Prov:ALOKTANIA 03/25/17 Naproxen* (Naproxen*) 500 Mg Tablet, 500 MG PO BID Y for PAIN, #20 TAB Prov:ALOKTANIAMATT SEVILLA 03/25/17 Hydrocodone/Acetaminophen ([place] 5-325 Tablet) 1 Each Tablet, 1 TAB PO Q6H Y for SEVERE PAIN LEVEL 7-10, #7 TAB Prov:SERGEY NATION POLICEWOMAN 03/24/17 Omeprazole* (Omeprazole*) 20 Mg Capsule.dr, 20 MG PO DAILY, #30 Prov:SERGEY NATION POLICEWOMAN 03/24/17 Ondansetron (Ondansetron Odt) 4 Mg Tab.rapdis, 4 MG PO Q8 Y for NAUSEA AND/OR VOMITING, #30 TAB Prov:SERGEY NATION POLICEWOMAN 03/24/17 Magaldrate/Simethicone* (Mylanta*) 355 Ml Susp, 30 ML PO QID Y for GASTROINTESTINAL UPSET, #1 BOTTLE Prov:SERGEY NATION POLICEWOMAN 03/24/17 Diphenhydramine Hcl* (Benadryl*) 50 Mg Cap, 50 MG PO Q6 Y for ANXIETY, #15 CAP Prov:CHATOMARILU Hitesh POLICEWOMAN 03/17/17 Reported Medications Hydrocodone/Acetaminophen ([place] 10-325 Tablet) 1 Each Tablet, 1 EACH PO Q6H, TAB 03/25/17 Pantoprazole* (Pantoprazole*) 40 Mg Tablet.dr, 40 MG PO AC BREAKFAST DINNER, TAB 03/25/17 Gabapentin* (Gabapentin*) 300 Mg Capsule, 900 MG PO QHS, #90 CAP 03/25/17 Ondansetron Hcl* (Zofran*) 4 Mg Tab, 4 MG PO Q4H Y for NAUSEA AND OR VOMITING, TAB 03/25/17 Lurasidone Hcl (LATUDA) 20 Mg Tablet, 20 MG PO QHS, #30 TAB 03/25/17 Calcium Carbonate/Vitamin D3 (Calcium 500+D Tablet Chew) 1 Each Tab.chew, 1 EACH PO BID, TAB.CHEW 03/15/17 Quetiapine Fumarate* (Seroquel*) 25 Mg Tablet, 25 MG PO HS, #30 TAB 03/15/17 Lamotrigine* (Lamotrigine* CHEW) 25 Mg Tab.disper, 50 MG PO QHS, TAB 03/15/17 Lurasidone Hcl (LATUDA) 20 Mg Tablet, 20 MG PO QHS, #30 TAB 03/15/17 Alprazolam* (Xanax*) 2 Mg Tablet, 2 MG PO BID Y for ANXIETY, TAB 03/15/17 Allergies Allergies: Coded Allergies: ibuprofen (Verified Allergy, Unknown, 03/15/17) tramadol (Verified Allergy, Unknown, 03/15/17) PMhx/Soc History of Surgery: Yes (GASTRIC BYPASS, CHOLECYSTECTOMY) Anesthesia Reaction: No Hx Neurological Disorder: No Hx Respiratory Disorders: No Hx Cardiac Disorders: No Hx Psychiatric Problems: Yes (ANXIETY) Hx Miscellaneous Medical Probl: No Hx Alcohol Use: No Hx Substance Use: No Hx Tobacco Use: No Smoking Status: Never smoker Physical Exam Vitals Vital Signs Date Time Temp Pulse Resp B/P Pulse Ox O2 Delivery O2 Flow Rate FiO2 06/26/17 22:46 99.6 83 18 117/80 99 Physical Exam Const: No acute distress, alert Head: Atraumatic Eyes: Normal Conjunctiva ENT: Normal External Ears, Nose and Mouth. Neck: Full range of motion..~ No meningismus. Resp: Clear to auscultation bilaterally Cardio: Regular rate and rhythm, no murmurs Abd: Soft, non tender, non distended. Normal bowel sounds Skin: No petechiae or rashes Back: No midline or flank tenderness Ext: No cyanosis, or edema Neur: Awake and alert Psych: Normal Mood and Affect Results 24 hrs Current Medications Medications (Trade) Dose Ordered Sig/Hi Route PRN Reason Start Time Stop Time Status Last Admin Dose Admin Miscellaneous Medication (Gi Cocktail (2)) 40 ml ONCE ONCE PO 06/27/17 00:00 06/27/17 00:01 DC 06/27/17 00:06 Famotidine (Pepcid) 20 mg ONCE ONCE PO 06/27/17 00:00 06/27/17 00:01 DC 06/27/17 00:06 Ondansetron HCl (Zofran Odt) 4 mg ONCE STAT ODT 06/26/17 23:53 06/26/17 23:57 DC 06/27/17 00:06 Morphine Sulfate (morphine) 4 mg ONCE ONCE IM 06/27/17 01:00 06/27/17 01:01 DC 06/27/17 00:57 Diphenhydramine HCl (Benadryl) 25 mg ONCE ONCE IV 06/27/17 03:30 06/27/17 03:31 DC 06/27/17 03:18 Procedures/MDM MDM: This 31-year-old female presenting to emergency department with generalized abdominal pain, nausea and vomiting that started after eating undercooked fish. Patient is seen here frequently for similar symptoms. Patient has history of chronic pain. Physical exam is overall unremarkable. No tenderness on abdominal exam. No active vomiting while in the ED. Patient given Morphine 4mg IM, Zofran 4mg p.o and pepcid 20mg. Patient requesting IV pain medications and states "this is the only thing that takes my pain away." IV access obtained and patient given Benadryl 25 mg IV. Upon reassessment, patient is calm and stable. Vital signs are stable. This is patient's 13th visit to ER in 2017. Differential diagnosis includes but not limited to acute AZ, pancreatitis, peptic ulcer disease, GERD, gastritis, cholecystitis, cholelithiasis, choledocholithiasis and gastroparesis and functional dyspepsia. I doubt acute AZ due to patient's normal vital signs, patient denies chest pain , shortness of breath, difficulty breathing or heart palpitations. I doubt pancreatitis due to patient's normal lab results. Patient is appropriate for outpatient management and instructed to follow-up with primary care provider in the next 2-3 days for reassessment. Return to ED for any high fever, chest pain, difficulty breathing, shortness breath, wheezing , vomiting, diarrhea, abdominal pain or any new or worsening symptoms. Patient verbalizes understanding. All questions answered at discharge. Departure Diagnosis: Primary Impression: Viral gastroenteritis Additional Impression: Chronic pain Condition: Stable Patient Instructions: Food Poisoning Or Gastroenteritis (6Y-Adult) Referrals: [facility] YOU HAVE RECEIVED A MEDICAL SCREENING EXAM AND THE RESULTS INDICATE THAT YOU DO NOT HAVE A CONDITION THAT REQUIRES URGENT TREATMENT IN THE EMERGENCY DEPARTMENT. FURTHER EVALUATION AND TREATMENT OF YOUR CONDITION CAN WAIT UNTIL YOU ARE SEEN IN YOUR DOCTORS OFFICE WITHIN THE NEXT 1-2 DAYS. IT IS YOUR RESPONSIBILITY TO MAKE AN APPOINTMENT FOR FOLOW-UP CARE. IF YOU HAVE A PRIMARY DOCTOR --you should call your primary doctor and schedule an appointment IF YOU DO NOT HAVE A PRIMARY DOCTOR YOU CAN CALL OUR PHYSICIAN REFERRAL HOTLINE AT IF YOU CAN NOT AFFORD TO SEE A PHYSICIAN YOU CAN CHOSE FROM THE FOLLOWING [facility] [address] [facility]. [facility] [address] [facility] [place] [facility] [address] [facility] [address] [facility] [address] [facility]. [facility]. [address] [facility]. [facility] YOU HAVE RECEIVED A MEDICAL SCREENING EXAM AND THE RESULTS INDICATE THAT YOU DO NOT HAVE A CONDITION THAT REQUIRES URGENT TREATMENT IN THE EMERGENCY DEPARTMENT. FURTHER EVALUATION AND TREATMENT OF YOUR CONDITION CAN WAIT UNTIL YOU ARE SEEN IN YOUR DOCTORS OFFICE WITHIN THE NEXT 1-2 DAYS. IT IS YOUR RESPONSIBILITY TO MAKE AN APPOINTMENT FOR FOLOW-UP CARE. IF YOU HAVE A PRIMARY DOCTOR --you should call your primary doctor and schedule and appointment IF YOU DO NOT HAVE A PRIMARY DOCTOR YOU CAN CALL OUR PHYSICIAN REFERRAL HOTLINE AT . IF YOU CAN NOT AFFORD TO SEE A PHYSICIAN YOU CAN CHOSE FROM THE FOLLOWING [facility]: [facility] [address] [place] [address] [facility] [address] [place] [address] [facility] [address] [place] [address] Additional Instructions: Call your primary care doctor TOMORROW for an appointment during the next 2-3 days.See the doctor sooner or return here if your condition worsens before your appointment time. Return to ED for any high fever, chest pain, difficulty breathing, shortness breath, wheezing, vomiting, diarrhea, abdominal pain or any new or worsening symptoms. MARILU REIS NP Jun 27, 2017 03:30
== END 2017-06-27 04:24 | disposition home or self-care (01) ==
LOC: FTE 21:43
DX: A08.4 Viral intestinal infection, unspecified (principal); G89.29 Other chronic pain
CPT/HCPCS: 96372; 96374; J1200; J2270; Z7502; Z7610

== ENCOUNTER 2017-07-18 18:29 | Emergency (ER) | payer OTHER ==
[~2017-07-18] VITALS: Ht 162.6 cm; Wt 83.5 kg
[2017-07-18 18:36] VITALS: Ht 162.6 cm; Wt 83.5 kg
[2017-07-18] MEDS ORDERED: DIPHENHYDRAMINE 50 MG INJ IM ONE (19:00)
[2017-07-18] MEDS ORDERED: SOD CHLORIDE 0.9% 500 ML IV STA (19:01)
--- NOTE | 2017-07-18 19:09 | ERD ---
ER Documentation Chief Complaint Date/Time DATE: 07/18/17 TIME: 19:06 Chief Complaint Anxiety, uncontrollable shaking and possible harm to self HPI 31 yo F hx of depression, bipolar, schizophrenia, gastric bypass Who presents to the emergency room with anxiety and uncontrolled shaking. The patient states that she has become very frustrated because of her gastric bypass. She states that eating is frustrating. She notes that she has become more frustrated over the last several days that has exacerbated auditory hallucinations that are telling her that she should never have had the surgery. She denies any suicidal or homicidal ideation or intent. She states that in the past when she has had this anxiety and shaking her psychiatrist gives her 50 mg of IM Benadryl. She is requesting this and IV fluids. Patient denies any suicidal homicidal thoughts. She states that she has follow-up with her psychiatrist on Thursday. She has required psychiatric hospitalization in the past but does not feel that she is at that point. She feels comfortable and safe at home. ROS All systems reviewed and are negative except as per history of present illness. Medications Home Meds Active Scripts Ondansetron (Ondansetron Odt) 4 Mg Tab.rapdis, 4 MG PO Q6H Y for NAUSEA AND/OR VOMITING, #10 TAB Prov:TANIA DICKINSON DO 05/03/17 Magnesium Citrate* (Magnesium Citrate*) 296 Ml Solution, 296 ML PO ONCE, #1 BOTTLE Prov:TANIA DICKINSON DO 05/03/17 Acetaminophen* (Tylenol*) 500 Mg Tab, 500 MG PO Q4H Y for MILD PAIN LEVEL 1-3, # 14 TAB Prov:ALOKTANIA DO 03/27/17 Bisacodyl (Dulcolax) 10 Mg Supp.rect, 10 MG RC Q8, #30 SUPP.RECT Prov:TANIA DICKINSON DO 03/27/17 Magnesium Citrate* (Magnesium Citrate*) 296 Ml Solution, 296 ML PO ONCE, #1 BOTTLE Prov:ALOKTANIA DO 03/25/17 Polyethylene Glycol* (Miralax*) 17 Gm Powd.pack, 17 GM PO DAILY, #7 Prov:ALOKTANIA DO 03/25/17 Ondansetron (Zofran Odt) 4 Mg Tab.rapdis, 4 MG PO Q6, #10 Prov:ALOKTANIA DO 03/25/17 Naproxen* (Naproxen*) 500 Mg Tablet, 500 MG PO BID Y for PAIN, #20 TAB Prov:TANIA DICKINSON DO 03/25/17 Hydrocodone/Acetaminophen (Brantwood 5-325 Tablet) 1 Each Tablet, 1 TAB PO Q6H Y for SEVERE PAIN LEVEL 7-10, #7 TAB Prov:SERGEY NATION NP 03/24/17 Omeprazole* (Omeprazole*) 20 Mg Capsule., 20 MG PO DAILY, #30 Prov:SERGEY NATION NP 03/24/17 Ondansetron (Ondansetron Odt) 4 Mg Tab.rapdis, 4 MG PO Q8 Y for NAUSEA AND/OR VOMITING, #30 TAB Prov:SERGEY NATION NP 03/24/17 Magaldrate/Simethicone* (Mylanta*) 355 Ml Susp, 30 ML PO QID Y for GASTROINTESTINAL UPSET, #1 BOTTLE Prov:SERGEY NATION NP 03/24/17 Diphenhydramine Hcl* (Benadryl*) 50 Mg Cap, 50 MG PO Q6 Y for ANXIETY, #15 CAP Prov:MARILU REIS NP 03/17/17 Reported Medications Hydrocodone/Acetaminophen (Brantwood 10-325 Tablet) 1 Each Tablet, 1 EACH PO Q6H, TAB 03/25/17 Pantoprazole* (Pantoprazole*) 40 Mg Tablet.dr, 40 MG PO AC BREAKFAST DINNER, TAB 03/25/17 Gabapentin* (Gabapentin*) 300 Mg Capsule, 900 MG PO QHS, #90 CAP 03/25/17 Ondansetron Hcl* (Zofran*) 4 Mg Tab, 4 MG PO Q4H Y for NAUSEA AND OR VOMITING, TAB 03/25/17 Lurasidone Hcl (LATUDA) 20 Mg Tablet, 20 MG PO QHS, #30 TAB 03/25/17 Calcium Carbonate/Vitamin D3 (Calcium 500+D Tablet Chew) 1 Each Tab.chew, 1 EACH PO BID, TAB.CHEW 03/15/17 Quetiapine Fumarate* (Seroquel*) 25 Mg Tablet, 25 MG PO HS, #30 TAB 03/15/17 Lamotrigine* (Lamotrigine* CHEW) 25 Mg Tab.disper, 50 MG PO QHS, TAB 03/15/17 Lurasidone Hcl (LATUDA) 20 Mg Tablet, 20 MG PO QHS, #30 TAB 03/15/17 Alprazolam* (Xanax*) 2 Mg Tablet, 2 MG PO BID Y for ANXIETY, TAB 03/15/17 Allergies Allergies: Coded Allergies: ibuprofen (Verified Allergy, Unknown, 03/15/17) tramadol (Verified Allergy, Unknown, 03/15/17) PMhx/Soc History of Surgery: Yes (GASTRIC BYPASS, CHOLECYSTECTOMY) Anesthesia Reaction: No Hx Neurological Disorder: No Hx Respiratory Disorders: No Hx Cardiac Disorders: No Hx Psychiatric Problems: Yes (ANXIETY) Hx Miscellaneous Medical Probl: No Hx Alcohol Use: No Hx Substance Use: No Hx Tobacco Use: No FmHx Family History: No diabetes Physical Exam Vitals Vital Signs Date Time Temp Pulse Resp B/P Pulse Ox O2 Delivery O2 Flow Rate FiO2 07/18/17 18:36 98.8 108 24 129/76 96 Physical Exam General: Well developed, well nourished, no acute distress Head: Normocephalic, atraumatic. Eyes: Pupils equally reactive, EOM intact ENT: Moist mucous membranes Neck: Supple, no lymphadenopathy Respiratory: Lungs clear bilaterally, no distress Cardiovascular: RRR, no murmurs, rubs, or gallops Abdominal: Soft, non-tender, non-distended, no peritoneal signs : Deferred MSK: No edema, no unilateral swelling, 5/5 strength Neurologic: Alert and oriented, moving all extremities, normal speech, no focal weakness, no cerebellar signs Skin: No rash Psych: Anxious mood, moderate insight, no suicidal or homicidal ideation, auditory hallucinations that appear to be consistent with baseline Results 24 hrs Current Medications Medications (Trade) Dose Ordered Sig/Hi Route PRN Reason Start Time Stop Time Status Last Admin Dose Admin Diphenhydramine HCl 50 mg 50 mg ONCE ONCE IM 07/18/17 19:00 07/18/17 19:01 DC Sodium Chloride (NS) 500 ml @ 500 mls/hr Q1H STAT IV 07/18/17 19:01 07/18/17 20:00 Procedures/MDM The patient presents with an anxiety attack and shaking. She is frustrated about her gastric bypass. She has a benign exam otherwise. The patient is describing auditory hallucinations but this is consistent with her baseline. She takes medications and has prompt follow-up with her psychiatrist in several days. She denies any suicidal homicidal thoughts. She states excellent outpatient resources and good support system. The patient is requesting 50 mg of IM Benadryl that has worked for the symptoms in the past as well as IV fluids. Patient without significant signs or symptoms concerning for dehydration. No evidence of acute intra-abdominal process. Medications provided and the patient will be safely discharged. No indication for psychiatric evaluation and hospitalization. The patient is not a danger to herself or others at this point. Departure Diagnosis: Primary Impression: Anxiety Additional Impression: History of gastric bypass Condition: Stable Patient Instructions: Anxiety Reaction Referrals: [facility] YOU HAVE RECEIVED A MEDICAL SCREENING EXAM AND THE RESULTS INDICATE THAT YOU DO NOT HAVE A CONDITION THAT REQUIRES URGENT TREATMENT IN THE EMERGENCY DEPARTMENT. FURTHER EVALUATION AND TREATMENT OF YOUR CONDITION CAN WAIT UNTIL YOU ARE SEEN IN YOUR DOCTORS OFFICE WITHIN THE NEXT 1-2 DAYS. IT IS YOUR RESPONSIBILITY TO MAKE AN APPOINTMENT FOR FOLOW-UP CARE. IF YOU HAVE A PRIMARY DOCTOR --you should call your primary doctor and schedule an appointment IF YOU DO NOT HAVE A PRIMARY DOCTOR YOU CAN CALL OUR PHYSICIAN REFERRAL HOTLINE AT IF YOU CAN NOT AFFORD TO SEE A PHYSICIAN YOU CAN CHOSE FROM THE FOLLOWING [facility] [address] [facility]. [facility] [address] [facility] [address] [facility]. [facility] [address] [facility]. [facility] [address] [facility]. [facility]. [address] [facility]. [facility] YOU HAVE RECEIVED A MEDICAL SCREENING EXAM AND THE RESULTS INDICATE THAT YOU DO NOT HAVE A CONDITION THAT REQUIRES URGENT TREATMENT IN THE EMERGENCY DEPARTMENT. FURTHER EVALUATION AND TREATMENT OF YOUR CONDITION CAN WAIT UNTIL YOU ARE SEEN IN YOUR DOCTORS OFFICE WITHIN THE NEXT 1-2 DAYS. IT IS YOUR RESPONSIBILITY TO MAKE AN APPOINTMENT FOR FOLOW-UP CARE. IF YOU HAVE A PRIMARY DOCTOR --you should call your primary doctor and schedule and appointment IF YOU DO NOT HAVE A PRIMARY DOCTOR YOU CAN CALL OUR PHYSICIAN REFERRAL HOTLINE AT . IF YOU CAN NOT AFFORD TO SEE A PHYSICIAN YOU CAN CHOSE FROM THE FOLLOWING [facility] INSTITUTIONS: [facility] [address] [place] [address] [facility] [address] [place] [address] [facility] + [facility] [address] [place] [address] Additional Instructions: Return for any suicidal thoughts or worsening condition. Call your primary care doctor TOMORROW for an appointment during the next 1 WEEK.Tell the executive secretary that you were referred from this facility.See the doctor sooner or return here if your condition worsens before your appointment time. LUCILA CORDOBA MD Jul 18, 2017 19:09
[2017-07-18 20:19] VITALS: BP 98/56; PULSE 84; RESP 12; TEMP 98.4
[2017-07-18] MEDS ORDERED: ONDANSETRON 4 MG INJ IV STA (20:33)
== END 2017-07-18 20:47 | disposition home or self-care (01) ==
LOC: E/R 18:29
DX: F41.9 Anxiety disorder, unspecified (principal); Z98.84 Bariatric surgery status
CPT/HCPCS: 96372; 96374; J1200; J2405; J7040; Z7502

== ENCOUNTER 2017-07-28 06:40 | Emergency (ER) | payer OTHER ==
[~2017-07-28] VITALS: Ht 165.1 cm; Wt 65.0 kg
[2017-07-28 07:00] VITALS: Ht 165.1 cm; Wt 65.0 kg
[2017-07-28] MEDS ORDERED: METOCLOPRAMIDE 10 MG INJ IV ONE (08:30)
[2017-07-28] MEDS ORDERED: METOCLOPRAMIDE 10 MG INJ IM ONE (08:30)
[2017-07-28] MEDS ORDERED: DIPHENHYDRAMINE 50 MG INJ IV ONE (08:30)
[2017-07-28] MEDS ORDERED: DIPHENHYDRAMINE 50 MG INJ IM ONE ×2 (08:30→09:00)
[2017-07-28] MEDS ORDERED: DIPHENHYDRAMINE 50 MG INJ ONE ×2 (08:31→08:51)
[2017-07-28] MEDS ORDERED: METOCLOPRAMIDE 10 MG INJ ONE (08:31)
[2017-07-28] MEDS ORDERED: ONDANSETRON 4 MG INJ IV STA (08:40)
[2017-07-28] MEDS ORDERED: ONDANSETRON 4 MG INJ ONE (08:51)
[2017-07-28] MEDS ORDERED: SOD CHLORIDE 0.9% 500 ML IV ONE (09:00)
[2017-07-28] MEDS ORDERED: ACETAMINOPHEN 325 MG TAB PO ONE (10:00)
[2017-07-28 10:15] VITALS: BP 118/65; PULSE 69; RESP 18
--- NOTE | 2017-07-28 10:19 | ERD ---
ER Documentation Chief Complaint Date/Time DATE: 07/28/17 TIME: 10:15 Chief Complaint BIB RA FOR EVAL OF ANXIETY. PT A&OX4. NO NEURO DEF HPI 31-year-old female patient with a past medical history of depression, anxiety, bipolar disorder, schizophrenia, gastric bypass presents to the ED complaining of uncontrolled shaking and feeling like the trazodone that she took last night is causing her to feel hypoglycemic. Reports that she is getting a panic attack. States that her psychiatrist told her that she can receive 50 mg IM Benadryl for her symptoms. She denies any suicidal or homicidal ideations. States that she will follow-up with her psychiatrist tomorrow. Denies any hallucinations or hearing any voices. Patient was seen here on July 18, 2017 as well as many other visits for similar symptoms. Denies any syncope or seizures. Denies any chest pain, shortness of breath, wheezing, abdominal pain , vomiting, abdominal pain, flank pain, dysuria, urgency, frequency. States that she is allergic to Xanax, Ativan, Ibuprofen and Tramadol. ROS All systems reviewed and are negative except as per history of present illness. Medications Home Meds Active Scripts Ondansetron (Ondansetron Odt) 4 Mg Tab.rapdis, 4 MG PO Q6H Y for NAUSEA AND/OR VOMITING, #10 TAB Prov:ALOKTANIA DO 05/03/17 Magnesium Citrate* (Magnesium Citrate*) 296 Ml Solution, 296 ML PO ONCE, #1 BOTTLE Prov:ALOKTANIA 05/03/17 Acetaminophen* (Tylenol*) 500 Mg Tab, 500 MG PO Q4H Y for MILD PAIN LEVEL 1-3, # 14 TAB Prov:ALOKTANIA DO 03/27/17 Bisacodyl (Dulcolax) 10 Mg Supp.rect, 10 MG RC Q8, #30 SUPP.RECT Prov:ALOKTANAI 03/27/17 Magnesium Citrate* (Magnesium Citrate*) 296 Ml Solution, 296 ML PO ONCE, #1 BOTTLE Prov:ALOKTANIA 03/25/17 Polyethylene Glycol* (Miralax*) 17 Gm Powd.pack, 17 GM PO DAILY, #7 Prov:TANIA DICKINSON DO 03/25/17 Ondansetron (Zofran Odt) 4 Mg Tab.rapdis, 4 MG PO Q6, #10 Prov:TANIA DICKINSON DO 03/25/17 Naproxen* (Naproxen*) 500 Mg Tablet, 500 MG PO BID Y for PAIN, #20 TAB Prov:TANIA DICKINSON DO 03/25/17 Hydrocodone/Acetaminophen (Boykin 5-325 Tablet) 1 Each Tablet, 1 TAB PO Q6H Y for SEVERE PAIN LEVEL 7-10, #7 TAB Prov:SERGEY NATION NP 03/24/17 Omeprazole* (Omeprazole*) 20 Mg Capsule., 20 MG PO DAILY, #30 Prov:SERGEY NATION NP 03/24/17 Ondansetron (Ondansetron Odt) 4 Mg Tab.rapdis, 4 MG PO Q8 Y for NAUSEA AND/OR VOMITING, #30 TAB Prov:SERGEY NATOIN NP 03/24/17 Magaldrate/Simethicone* (Mylanta*) 355 Ml Susp, 30 ML PO QID Y for GASTROINTESTINAL UPSET, #1 BOTTLE Prov:SERGEY NATION NP 03/24/17 Diphenhydramine Hcl* (Benadryl*) 50 Mg Cap, 50 MG PO Q6 Y for ANXIETY, #15 CAP Prov:MARILU REIS NP 03/17/17 Reported Medications Hydrocodone/Acetaminophen (Boykin 10-325 Tablet) 1 Each Tablet, 1 EACH PO Q6H, TAB 03/25/17 Pantoprazole* (Pantoprazole*) 40 Mg Tablet.dr, 40 MG PO AC BREAKFAST DINNER, TAB 03/25/17 Gabapentin* (Gabapentin*) 300 Mg Capsule, 900 MG PO QHS, #90 CAP 03/25/17 Ondansetron Hcl* (Zofran*) 4 Mg Tab, 4 MG PO Q4H Y for NAUSEA AND OR VOMITING, TAB 03/25/17 Lurasidone Hcl (LATUDA) 20 Mg Tablet, 20 MG PO QHS, #30 TAB 03/25/17 Calcium Carbonate/Vitamin D3 (Calcium 500+D Tablet Chew) 1 Each Tab.chew, 1 EACH PO BID, TAB.CHEW 03/15/17 Quetiapine Fumarate* (Seroquel*) 25 Mg Tablet, 25 MG PO HS, #30 TAB 03/15/17 Lamotrigine* (Lamotrigine* CHEW) 25 Mg Tab.disper, 50 MG PO QHS, TAB 03/15/17 Lurasidone Hcl (LATUDA) 20 Mg Tablet, 20 MG PO QHS, #30 TAB 03/15/17 Alprazolam* (Xanax*) 2 Mg Tablet, 2 MG PO BID Y for ANXIETY, TAB 03/15/17 Allergies Allergies: Coded Allergies: ibuprofen (Verified Allergy, Unknown, 03/15/17) tramadol (Verified Allergy, Unknown, 03/15/17) PMhx/Soc History of Surgery: Yes (GASTRIC BYPASS, CHOLECYSTECTOMY) Anesthesia Reaction: No Hx Neurological Disorder: No Hx Respiratory Disorders: No Hx Cardiac Disorders: No Hx Psychiatric Problems: Yes (Bipolar, Schizophrenia) Hx Miscellaneous Medical Probl: No Hx Alcohol Use: No Hx Substance Use: No Hx Tobacco Use: No Smoking Status: Never smoker Physical Exam Vitals Vital Signs Date Time Temp Pulse Resp B/P Pulse Ox O2 Delivery O2 Flow Rate FiO2 07/28/17 10:15 69 18 118/65 99 Room Air 07/28/17 07:00 98.7 72 19 122/75 100 Physical Exam Const: Eav-yuj-rgimzetjn, well-nourished. In no acute distress. Head: Atraumatic, normocephalic Eyes: Normal Conjunctiva without injection. No purulent discharge. PERRLA. EOMI ENT: Normal external ear. Ear canal without erythema. Tympanic membrane pearly murray without effusion or bulging. Nasal canal clear with normal turbinates. Moist oropharynx without tonsillar exudates. Non-erythematous pharynx. Uvula midline. No drooling. No trismus. Neck: No cervical midline tenderness. Full range of motion. No meningismus. No cervical lymphadenopathy. No JVD. Resp: Clear to auscultation bilaterally. No wheezing, rhonchi, rales, or crackles. No accessory muscle use. No retractions. Cardio: Regular rate and rhythm. No murmurs, rubs or gallops. Abd: Soft, non tender, non distended. Normal bowel sounds. No palpable masses. No rebound tenderness. No guarding. Negative McBurney's Point. Negative Lopez's Sign. Skin: Normal skin turgor. No petechiae or rashes Back: No midline tenderness. No CVA tenderness. Ext: No cyanosis, or edema. Distal pulses intact bilaterally. Neur: Awake and alert. Normal gait. Normal coordination. Cranial Nerves II- VII intact. Normal finger to nose. Muscle strength 5/5. Sensation intact. Psych: Normal Mood and Affect Results 24 hrs Laboratory Tests Test 07/28/17 08:13 Bedside Glucose 86mg/dL Current Medications Medications (Trade) Dose Ordered Sig/Hi Route PRN Reason Start Time Stop Time Status Last Admin Dose Admin Diphenhydramine HCl (Benadryl) 50 mg ONCE ONCE IM 07/28/17 08:30 07/28/17 08:31 Cancel Metoclopramide HCl (Reglan) 10 mg ONCE ONCE IM 07/28/17 08:30 07/28/17 08:31 Cancel Diphenhydramine HCl (Benadryl) 25 mg ONCE ONCE IV 07/28/17 08:30 07/28/17 08:31 DC 07/28/17 08:33 Metoclopramide HCl (Reglan) 10 mg ONCE ONCE IV 07/28/17 08:30 07/28/17 08:31 DC 07/28/17 08:33 Ondansetron HCl 4 mg 4 mg ONCE STAT IV 07/28/17 08:40 07/28/17 08:42 DC 07/28/17 08:52 Sodium Chloride (NS) 500 ml @ 500 mls/hr Q1H ONCE IV 07/28/17 09:00 07/28/17 09:59 DC 07/28/17 08:52 Diphenhydramine HCl (Benadryl) 25 mg ONCE ONCE IM 07/28/17 09:00 07/28/17 09:01 DC 07/28/17 08:52 Acetaminophen (Tylenol Tab) 650 mg ONCE ONCE PO 07/28/17 10:00 07/28/17 10:01 DC Diphenhydramine HCl (Benadryl) 50 mg STK-MED ONCE .ROUTE 07/28/17 08:31 07/28/17 17:56 DC Metoclopramide HCl (Reglan) 10 mg STK-MED ONCE .ROUTE 07/28/17 08:31 07/28/17 17:56 DC Diphenhydramine HCl (Benadryl) 50 mg STK-MED ONCE .ROUTE 07/28/17 08:51 07/28/17 18:15 DC Ondansetron HCl (Zofran Inj) 4 mg STK-MED ONCE .ROUTE 07/28/17 08:51 07/28/17 18:15 DC Procedures/MDM 31-year-old female patient with a past medical history of gastric bypass, depression, anxiety, bipolar disorder, gastric bypass presents the ED complaining of uncontrolled shaking and inability to sleep as well as her anxiety acting up as well as nausea from Trazadone. Patient is afebrile and nontoxic-appearing. Patient was given 500 mL normal saline, 25 mg IV Benadryl, 25 g IM Benadryl, 4 mg IV Zofran, 10 mg IV Reglan with improvement of her symptoms. Urine negative. Accu-Chek was 86. Low suspicion for DKA. Patient reports that this feels exactly the same as her previous visits and feels like she is getting a reaction from trazodone. I instructed her that she should follow-up with her psychiatrist tomorrow for continuation or discontinuation of the medication as this physician had started the medication on the patient. Upon review of patient's previous charts, patient has had similar visits in the past. No indication for psychiatric evaluation at this time. No hallucinations, homicidal/suicidal ideations, hearing voices. Low suspicion for acute myocardial infarction, pneumothorax, pneumonia, cardiac tamponade, pulmonary embolism, pleural effusion, AAA, seizures, aortic dissection, Boerhaave's syndrome, cardiac dysrhythmias,meningitis, intracranial bleed, seizure, stroke, TIA or other emergent conditions. Instructed patient to return to the ED sooner for any worsening symptoms. Patient's questions were answered. Patient understood and agreed with discharge plan. Patient discharged stable. Departure Diagnosis: Primary Impression: Anxiety Condition: Stable Patient Instructions: Taking Medication Safely, Your Body's Response to Anxiety , Anxiety Reaction Referrals: [facility] YOU HAVE RECEIVED A MEDICAL SCREENING EXAM AND THE RESULTS INDICATE THAT YOU DO NOT HAVE A CONDITION THAT REQUIRES URGENT TREATMENT IN THE EMERGENCY DEPARTMENT. FURTHER EVALUATION AND TREATMENT OF YOUR CONDITION CAN WAIT UNTIL YOU ARE SEEN IN YOUR DOCTORS OFFICE WITHIN THE NEXT 1-2 DAYS. IT IS YOUR RESPONSIBILITY TO MAKE AN APPOINTMENT FOR FOLOW-UP CARE. IF YOU HAVE A PRIMARY DOCTOR --you should call your primary doctor and schedule an appointment IF YOU DO NOT HAVE A PRIMARY DOCTOR YOU CAN CALL OUR PHYSICIAN REFERRAL HOTLINE AT IF YOU CAN NOT AFFORD TO SEE A PHYSICIAN YOU CAN CHOSE FROM THE FOLLOWING [facility] [address] [facility] [address] [facility] [address] [facility] [address] [facility] [address] [facility]. [facility] [address] [facility]. [facility] YOU HAVE RECEIVED A MEDICAL SCREENING EXAM AND THE RESULTS INDICATE THAT YOU DO NOT HAVE A CONDITION THAT REQUIRES URGENT TREATMENT IN THE EMERGENCY DEPARTMENT. FURTHER EVALUATION AND TREATMENT OF YOUR CONDITION CAN WAIT UNTIL YOU ARE SEEN IN YOUR DOCTORS OFFICE WITHIN THE NEXT 1-2 DAYS. IT IS YOUR RESPONSIBILITY TO MAKE AN APPOINTMENT FOR FOLOW-UP CARE. IF YOU HAVE A PRIMARY DOCTOR --you should call your primary doctor and schedule and appointment IF YOU DO NOT HAVE A PRIMARY DOCTOR YOU CAN CALL OUR PHYSICIAN REFERRAL HOTLINE AT . IF YOU CAN NOT AFFORD TO SEE A PHYSICIAN YOU CAN CHOSE FROM THE FOLLOWING [facility]: [facility] [address] [place] [address] [facility] [address] [place] [address] [facility] + [facility] [address] [place] [address] [facility]CIALTIES Additional Instructions: FOLLOW UP WITH YOUR PRIMARY CARE PHYSICIAN and PYSCHIATRIST Dr. Martinez TOMORROW for further evaluation and treatment.Return to this facility if you are not improving as expected. ISAEL DEAN PA-C Jul 28, 2017 10:19
== END 2017-07-28 10:16 | disposition home or self-care (01) ==
LOC: FTE 06:40
DX: F41.9 Anxiety disorder, unspecified (principal)
CPT/HCPCS: 82962; 96372; 96374; 96375; J1200; J2405; J2765; J7040; Z7502

== ENCOUNTER 2017-08-27 23:35 | Emergency (ER) | payer OTHER ==
[~2017-08-27] VITALS: Ht 157.5 cm; Wt 86.0 kg
[2017-08-27 23:42] VITALS: Ht 157.5 cm; Wt 86.0 kg
--- NOTE | 2017-08-28 01:55 | ERD ---
ER Documentation Chief Complaint Chief Complaint right side wisdom tooth cracked has appt w/surgeon wed need pain med HPI This 31 yr old female presents to emergency department with dental pain. Patient reports that she has a broken wisdom tooth, was seen Thursday at [facility] prescribed amoxicillin and Mcclellan, tooth was too unstable to extract, patient returned to [facility] today, reports pain medication is not effective a new prescription was called to [facility] pharmacy at 5:00, pharmacy does not accept verbal orders without confirmation, order could not be confirmed or verified until tomorrow , Has secondary complaint reporting dysuria, nausea vomiting fever chills, past medical history of depression, anxiety, bipolar disorder, schizophrenia, gastric bypass ROS All systems reviewed and are negative except as per history of present illness. Medications Home Meds Active Scripts Hydrocodone/Acetaminophen (Mcclellan 5-325 Tablet) 1 Each Tablet, 1 TAB PO Q6H Y for PAIN, #7 TAB Prov:CHANG,REYNA 08/28/17 Ondansetron (Ondansetron Odt) 4 Mg Tab.rapdis, 4 MG PO Q6H Y for NAUSEA AND/OR VOMITING, #10 TAB Prov:ALOKTANIA DO 05/03/17 Magnesium Citrate* (Magnesium Citrate*) 296 Ml Solution, 296 ML PO ONCE, #1 BOTTLE Prov:ALOKTANIA DO 05/03/17 Acetaminophen* (Tylenol*) 500 Mg Tab, 500 MG PO Q4H Y for MILD PAIN LEVEL 1-3, # 14 TAB Prov:ALOKTANIA DO 03/27/17 Bisacodyl (Dulcolax) 10 Mg Supp.rect, 10 MG RC Q8, #30 SUPP.RECT Prov:ALOKTANIA DO 03/27/17 Magnesium Citrate* (Magnesium Citrate*) 296 Ml Solution, 296 ML PO ONCE, #1 BOTTLE Prov:ALOKTANIA DO 03/25/17 Polyethylene Glycol* (Miralax*) 17 Gm Powd.pack, 17 GM PO DAILY, #7 Prov:ALOKTANIA 03/25/17 Ondansetron (Zofran Odt) 4 Mg Tab.rapdis, 4 MG PO Q6, #10 Prov:ALOKTANIA 03/25/17 Naproxen* (Naproxen*) 500 Mg Tablet, 500 MG PO BID Y for PAIN, #20 TAB Prov:TANIA DICKINSON DO 03/25/17 Hydrocodone/Acetaminophen (Mcclellan 5-325 Tablet) 1 Each Tablet, 1 TAB PO Q6H Y for SEVERE PAIN LEVEL 7-10, #7 TAB Prov:SERGEY NATION NP 03/24/17 Omeprazole* (Omeprazole*) 20 Mg Capsule.dr, 20 MG PO DAILY, #30 Prov:SERGEY NATION [employer]AR[employer]AL VETERINARIAN 03/24/17 Ondansetron (Ondansetron Odt) 4 Mg Tab.rapdis, 4 MG PO Q8 Y for NAUSEA AND/OR VOMITING, #30 TAB Prov:SERGEY NATION NP 03/24/17 Magaldrate/Simethicone* (Mylanta*) 355 Ml Susp, 30 ML PO QID Y for GASTROINTESTINAL UPSET, #1 BOTTLE Prov:SERGEY NATION NP 03/24/17 Diphenhydramine Hcl* (Benadryl*) 50 Mg Cap, 50 MG PO Q6 Y for ANXIETY, #15 CAP Prov:MARILU REIS [employer]AR[employer] VETERINARIAN 03/17/17 Reported Medications Hydrocodone/Acetaminophen (Mcclellan 10-325 Tablet) 1 Each Tablet, 1 EACH PO Q6H, TAB 03/25/17 Pantoprazole* (Pantoprazole*) 40 Mg Tablet.dr, 40 MG PO AC BREAKFAST DINNER, TAB 03/25/17 Gabapentin* (Gabapentin*) 300 Mg Capsule, 900 MG PO QHS, #90 CAP 03/25/17 Ondansetron Hcl* (Zofran*) 4 Mg Tab, 4 MG PO Q4H Y for NAUSEA AND OR VOMITING, TAB 03/25/17 Lurasidone Hcl (LATUDA) 20 Mg Tablet, 20 MG PO QHS, #30 TAB 03/25/17 Calcium Carbonate/Vitamin D3 (Calcium 500+D Tablet Chew) 1 Each Tab.chew, 1 EACH PO BID, TAB.CHEW 03/15/17 Quetiapine Fumarate* (Seroquel*) 25 Mg Tablet, 25 MG PO HS, #30 TAB 03/15/17 Lamotrigine* (Lamotrigine* CHEW) 25 Mg Tab.disper, 50 MG PO QHS, TAB 03/15/17 Lurasidone Hcl (LATUDA) 20 Mg Tablet, 20 MG PO QHS, #30 TAB 03/15/17 Alprazolam* (Xanax*) 2 Mg Tablet, 2 MG PO BID Y for ANXIETY, TAB 03/15/17 Allergies Allergies: Coded Allergies: ibuprofen (Verified Allergy, Unknown, 03/15/17) tramadol (Verified Allergy, Unknown, 03/15/17) PMhx/Soc History of Surgery: Yes (GASTRIC BYPASS, CHOLECYSTECTOMY) Anesthesia Reaction: No Hx Neurological Disorder: No Hx Respiratory Disorders: No Hx Cardiac Disorders: No Hx Psychiatric Problems: Yes (Bipolar, Schizophrenia) Hx Miscellaneous Medical Probl: No Hx Alcohol Use: No Hx Substance Use: No Hx Tobacco Use: No Smoking Status: Never smoker Physical Exam Vitals Vital Signs Date Time Temp Pulse Resp B/P Pulse Ox O2 Delivery O2 Flow Rate FiO2 08/27/17 23:42 96.6 79 20 132/94 99 Vitals stable, triage notes reviewed Physical Exam Const: Well-nourished well-hydrated well-appearing 31-year-old female obvious discomfort no acute distress Head: Atraumatic Eyes: Normal Conjunctiva PERRLA ENT: Normal External Ears, Nose patient's oral mucosa is moist, third molar on right presents with Wells 1 fracture, tender to palpation, half of wisdom tooth has broken off. Rough edges flush with gingiva Neck: Resp: Cardio: Abd: Skin: No petechiae or rashes Back: Ext: Neur: Awake and alert Psych: Normal Mood and Affect Results 24 hrs Laboratory Tests Test 08/28/17 01:16 Urine Color YELLOW Urine Clarity CLEAR Urine pH 5.0 Urine Specific [place] 1.018 Urine Ketones NEGATIVEmg/dL Urine Nitrite NEGATIVEmg/dL Urine Bilirubin NEGATIVEmg/dL Urine Urobilinogen 1+mg/dL Urine Leukocyte Esterase NEGATIVELeu/ul Urine Hemoglobin NEGATIVEmg/dL Urine Glucose NEGATIVEmg/dL Urine Total Protein NEGATIVEmg/dl Current Medications Medications (Trade) Dose Ordered Sig/Hi Route PRN Reason Start Time Stop Time Status Last Admin Dose Admin Oxycodone/ Acetaminophen (Percocet (5/ 325)) 1 tab ONCE ONCE PO 08/28/17 02:00 08/28/17 02:01 DC 08/28/17 02:03 Oxycodone/ Acetaminophen (Percocet (5/ 325)) 1 tab ONCE ONCE PO 08/28/17 04:00 08/28/17 04:01 Urinalysis negative for evidence of infection Procedures/MDM This 31-year-old female presents to emergency department for pain control, patient has a right third molar infection, with a broken wells S1 fracture. Patient is on amoxicillin will see dentist tomorrow, patient emergency room course includes history and physical exam, pain control with one Percocet in the emergency department, urinalysis, negative for evidence of infection, plan to discharge home with Mcclellan count of 1-2 tablets every hours as needed pain. Patient is stable with no new complaints during ER course, clinically there is no current evidence to suggest meningitis, sepsis, osteomyelitis, acute abdomen , or any other emergent condition appearing to require further evaluation or hospitalization. I feel the patient is stable for discharge at this time. I have discussed results, examination findings, the treatment plan with the patient and family present prior to discharge. Indications for emergent reevaluation, side effects of medication were also discussed. All questions were answered. Patient verbalizes understanding and agrees with plan of care. Patient reports feeling injury prior to discharge, Benadryl 25 mg p.o. given prior to patient leaving emergency department. Patient has no evidence of angioedema, anaphylaxis shock, difficulty swallowing, lip swelling, difficulty breathing Departure Diagnosis: Primary Impression: Toothache Condition: Good Additional Instructions: Thank you for for coming to the [facility] for your care today. Please ask your nurse or provider if you have questions about your care today and do not leave until all your questions have been answered. Please use any medications given as directed and follow-up with your doctor (or the doctor you were referred to) in the next 2-3 days. If you do not have a primary care doctor you may follow up at the [facility] (listed below). You may also use motrin and tylenol as needed for fever and/or pain unless instructed otherwise by your provider or nurse. Indications for more urgent follow-up have been discussed, but you may return to the Emergency Department at ANY time for any worrisome or worsening symptoms. If you have abdominal pain, please know that no test or exam you received is perfect and you should follow up within 8 hours for continued pain. If you had any imaging studies today, such as an X-Ray or CT Scan, these studies will be reviewed later by a radiologist. You will be called if there are important findings that were not identified today, so make sure the contact information you provided at registration is correct. If you received any narcotic pain control medicine today, such as Vicodin, Morphine or Dilaudid, your coordination and judgment may be affected for a number of hours. Please do not drive or operate heavy machinery, and you may want someone to assist you at home. If you were given a prescription for narcotic medication, be aware that it is very addictive- use sparingly and only if necessary. REYNA DOWNING Aug 28, 2017 01:55
[2017-08-28] MEDS ORDERED: OXYCODONE/ACETAMINOPHEN (5/325) TAB PO ONE ×2 (02:00→04:00)
[2017-08-28 03:30] LABS: ADD UMIC NO; UR ASCORBIC ACID NEGATIVE (NEGATIVE); UR BILIRUBIN (Dip) NEGATIVE (NEGATIVE); UR BLOOD (Dip) NEGATIVE (NEGATIVE); UR CLARITY CLEAR (CLEAR); UR COLOR YELLOW (YELLOW); UR GLUCOSE (Dip) NEGATIVE (NEGATIVE); UR KETONES (Dip) NEGATIVE (NEGATIVE); UR LEUKOCYTE ESTERASE (Dip) NEGATIVE Leu/ul (NEGATIVE); UR NITRITE (Dip) NEGATIVE (NEGATIVE); UR SPECIFIC GRAVITY (Dip) 1.018 (1.003-1.030); UR TOTAL PROTEIN (Dip) NEGATIVE (NEGATIVE); UR UROBILINOGEN (Dip) 1+ mg/dL (NEGATIVE)
[2017-08-28] MEDS ORDERED: HYDR-906 PO (03:41)
[2017-08-28 03:56] VITALS: BP 132/94; PULSE 88; RESP 20; TEMP 96.6
[2017-08-28] MEDS ORDERED: DIPHENHYDRAMINE 25 MG CAP PO ONE (04:00)
== END 2017-08-28 03:44 | disposition home or self-care (01) ==
LOC: FTE 23:35
DX: K08.89 Other specified disorders of teeth and supporting structures (principal)
CPT/HCPCS: 81003; Z7502; Z7610; 99283

== ENCOUNTER 2017-10-28 21:29 | Emergency (ER) | END 2017-10-29 04:28 | disposition home or self-care (01) ==

== ENCOUNTER 2017-11-10 05:43 | Emergency (ER) | END 2017-11-10 10:22 | disposition home or self-care (01) ==

== ENCOUNTER 2017-11-24 13:00 | Emergency (ER) | END 2017-11-24 18:00 | disposition home or self-care (01) ==

== ENCOUNTER 2018-03-10 21:08 | Emergency (ER) | END 2018-03-10 23:11 | disposition left against medical advice (07) ==

== ENCOUNTER 2018-04-18 18:04 | Emergency (ER) | END 2018-04-18 19:55 | disposition home or self-care (01) ==

== ENCOUNTER 2018-04-19 01:43 | Emergency (ER) | END 2018-04-19 05:41 | disposition home or self-care (01) ==

== ENCOUNTER 2018-04-20 07:24 | Emergency (ER) | END 2018-04-20 09:16 | disposition home or self-care (01) ==

== ENCOUNTER 2018-06-30 18:19 | Emergency (ER) | END 2018-06-30 21:11 | disposition home or self-care (01) ==